=== PATIENT | male | born 1940 | race Caucasian/White ===

== ENCOUNTER 2017-02-22 17:35 | Observation (INO) | payer OTHER ==
[~2017-02-22] VITALS: Ht 185.4 cm; Wt 66.0 kg
[~2017-02-22 17:35] MED LIST: ASPI325T PO; ATOR10TA15 PO; CARD300C5 PO; INDA2.5T PO; LOSA100T PO; MULT-135 PO; PLAV75TA29 PO
[2017-02-22 17:38] VITALS: BP 171/76; PULSE 58; RESP 20; TEMP 97.8; O2SAT 92
--- NOTE | 2017-02-22 17:52 | PD ---
Physical Exam Date Seen by Provider: Feb 22, 2017 Time Seen by Provider: 17:47 Narrative Patient seen in Triage with 2 day Hx of Exertional Chest Pressure that goes away immediately with rest. Patient denies Fever, Chills, Cough, or Nausea. Patient has Hx of Stent placement in october. No Hx. MA or CHF. Chest pressure goes up Left Arm and across anterior chest. Patient states it resolves immediately with 10 seconds rest. EKG ordered. Vital Signs Stable. Patient awaiting Bed Placement. Data Data Last Documented VS Vital Signs Date Time Temp Pulse Resp B/P Pulse Ox O2 Delivery O2 Flow Rate FiO2 02/22/17 17:38 97.8 58 20 171/76 92 Room Air Orders Electrocardiogram (02/22/17 17:43) [place] Medical Record Reviewed: Yes Supervised Visit with YOSELIN: Yes Condition: Stable Shaq Henley Feb 22, 2017 17:52
[2017-02-22 20:06] VITALS: BP 192/86; PULSE 55; RESP 18; O2SAT 98
[2017-02-22] MEDS ORDERED: METO25TA3 PO (20:08)
[2017-02-22] MEDS ORDERED: DILT1TAB22 PO (20:19)
[2017-02-22] MEDS ORDERED: METH5TAB4 PO (20:19)
[2017-02-22 20:57] VITALS: O2SAT 98
[2017-02-22 20:58] VITALS: BP 163/74; PULSE 52; RESP 18; O2SAT 97
[2017-02-22] MEDS ORDERED: SODIUM CHLORIDE 0.9% FLUSH 10 ML FLUSH IVF PRN (21:00)
--- NOTE | 2017-02-22 21:00 | PD ---
HPI Chief Complaint: Chest Pain Time Seen by Provider: 20:35 Travel History International Travel<30 days: No Contact w/Intl Traveler<30days: No Traveled to known affect area: No History of Present Illness HPI 76-year-old male arrives to the ER with a story concerning for anginal equivalents. He notes that 4 months ago he underwent coronary catheterization with stent placement by Dr. Hamilton. At that time the patient was experiencing left shoulder/chest pain described as pressure-like with a severity of 7/10 felt mainly while mowing the lawn. Upon rest the chest pain resolved. Since the stent was placed the patient has been asymptomatic until one week prior. 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 He reports somewhat of a long walk for some of the buildings. During these exertional episodes the patient experiences a pain quality similar to that he had previous to stent placement 4 months prior though less severe, 2-3/ 10. He reported the story to Dr. Hamilton who advised him to come to the ER. He has no pain at the time of interview. PFSH Past Medical History Hx Anticoagulant Therapy: Yes Atrial Fibrillation: Yes Heart Rhythm Problems: Yes (A FIB) Cancer: Yes (SKIN) Cardiac Catheterization: Yes (STENT PLACED 10/2016) Cardiovascular Problems: Yes High Cholesterol: Yes Diminished Hearing: No Hypertension: Yes Respiratory: Yes Tetanus Vaccination: Unknown Influenza Vaccination: Yes ?: Not Social History Alcohol Use: Yes (socially ) Tobacco Use: No Substance Use: No Allergies-Medications (Allergen,Severity, Reaction): Coded Allergies: Lisinopril (Verified Allergy, Unknown, 02/22/17) Reported Meds & Prescriptions Reported Meds & Active Scripts Active Reported Methimazole 5 Mg Tab 5 Mg PO DAILY Cardizem LA (Diltiazem ER 24 HR) 300 Mg Radha 300 Mg PO DAILY Metoprolol Tartrate 25 Mg Tab 25 Mg PO BID Aspirin 325 Mg Tab 325 Mg PO DAILY Atorvastatin (Atorvastatin Calcium) 10 Mg Tab 10 Mg PO HS Plavix (Clopidogrel Bisulfate) 75 Mg Tab 75 Mg PO DAILY Multi Vitamin (Multiple Vitamin) 1 Tab Tab 1 Tab PO DAILY Losartan (Losartan Potassium) 100 Mg Tab 100 Mg PO DAILY Indapamide 2.5 Mg Tab 2.5 Mg PO DAILY Review of Systems Except as stated in HPI: all other systems reviewed are Neg General / Constitutional: No: Fever, Chills Cardiovascular: Positive: Chest Pain or Discomfort Physical Exam Narrative GENERAL: 76-year-old male pleasant no acute distress SKIN: Focused skin assessment warm/dry. HEAD: Atraumatic. Normocephalic. EYES: Pupils equal and round. No scleral icterus. No injection or drainage. ENT: No nasal bleeding or discharge. Mucous membranes pink and moist. NECK: Trachea midline. No JVD. CARDIOVASCULAR: Regular rate and rhythm. No murmur appreciated. RESPIRATORY: No accessory muscle use. Clear to auscultation. Breath sounds equal bilaterally. GASTROINTESTINAL: Abdomen soft, non-tender, nondistended. Hepatic and splenic margins not palpable. MUSCULOSKELETAL: No obvious deformities. No clubbing. No cyanosis. No edema. NEUROLOGICAL: Awake and alert. No obvious cranial nerve deficits. Motor grossly within normal limits. Normal speech. PSYCHIATRIC: Appropriate mood and affect; insight and judgment normal. Data Data Last Documented VS Vital Signs Date Time Temp Pulse Resp B/P Pulse Ox O2 Delivery O2 Flow Rate FiO2 02/22/17 20:58 52 18 163/74 97 Room Air 02/22/17 17:38 97.8 VS reviewed Orders Electrocardiogram (02/22/17 17:43) Basic Metabolic Panel (Bmp) (02/22/17 20:52) Ckmb (Isoenzyme) Profile (02/22/17 20:52) Complete Blood Count With Diff (02/22/17 20:52) Magnesium (Mg) (02/22/17 20:52) Prothrombin Time / Inr (Pt) (02/22/17 20:52) Act Partial Throm Time (Ptt) (02/22/17 20:52) Troponin I (02/22/17 20:52) Chest, Single Ap (02/22/17 20:52) Ecg Monitoring (02/22/17 20:52) Iv Access Insert/Monitor (02/22/17 20:52) Oximetry (02/22/17 20:52) Oxygen Administration (02/22/17 20:52) Sodium Chloride 0.9% Flush (Ns Flush) (02/22/17 21:00) CKMB (02/22/17 20:56) CKMB% (02/22/17 20:56) Diet Heart Healthy (02/22/17 Dinner) Activity Bed Rest With Brp (02/22/17 22:17) Vital Signs (Adult) Q4H (02/22/17 22:17) Cardiac Rhythm .As Directed (02/22/17:) ^ Notify Dr: Other .PRN (02/22/17:17) ^ Notify Dr. Parameters (02/22/17:17) Resp Oxygen Nasal Cannula (02/22/17 ) Diet Npo (02/23/17 Breakfast) Ckmb (Isoenzyme) Profile (02/22/17:) Ckmb (Isoenzyme) Profile (02/23/17 01:17) Troponin I (02/22/17:) Troponin I (02/23/17:17) Electrocardiogram (02/22/17:) Electrocardiogram (02/23/17:) ^ Obtain (02/22/17:) Acetamin-Hydrocod 325-7.5 Mg ([place] 7.5 (02/22/17 22:30) Morphine Inj (Morphine Inj) (02/22/17 22:30) Ondansetron Inj (Zofran Inj) (02/22/17 22:30) Nitroglycerin Sl (Nitrostat Sl) (02/22/17 22:30) Aspirin (Aspirin) (02/23/17 09:00) Temazepam (Restoril) (02/22/17 22:30) Alprazolam (Xanax) (02/22/17 22:30) Service Delivery Management Consultant / Telemetry [place].Q8H (02/22/17 22:17) Admit Order (Ed Use Only) (02/22/17 22:17) Labs Laboratory Tests Test 02/22/17 20:56 White Blood Count 8.1 TH/MM3 Red Blood Count 4.91 MIL/MM3 Hemoglobin 15.5 GM/DL Hematocrit 45.0 % Mean Corpuscular Volume 91.8 FL Mean Corpuscular Hemoglobin 31.5 PG Mean Corpuscular Hemoglobin 34.3 % Concent Red Cell Distribution Width 15.4 % Platelet Count 198 TH/MM3 Mean Platelet Volume 8.9 FL Neutrophils (%) (Auto) 67.2 % Lymphocytes (%) (Auto) 23.2 % Monocytes (%) (Auto) 7.7 % Eosinophils (%) (Auto) 1.3 % Basophils (%) (Auto) 0.6 % Neutrophils # (Auto) 5.5 TH/MM3 Lymphocytes # (Auto) 1.9 TH/MM3 Monocytes # (Auto) 0.6 TH/MM3 Eosinophils # (Auto) 0.1 TH/MM3 Basophils # (Auto) 0.0 TH/MM3 CBC Comment DIFF FINAL Differential Comment Prothrombin Time 11.2 SEC Prothromb Time International 1.0 RATIO Ratio Activated Partial 27.2 SEC Thromboplast Time Sodium Level 139 MEQ/L Potassium Level 3.7 MEQ/L Chloride Level 100 MEQ/L Carbon Dioxide Level 30.3 MEQ/L Anion Gap 9 MEQ/L Blood Urea Nitrogen 17 MG/DL Creatinine 1.04 MG/DL Estimat Glomerular Filtration 70 ML/MIN Rate Random Glucose 87 MG/DL Calcium Level 10.2 MG/DL Magnesium Level 2.1 MG/DL Total Creatine Kinase 102 U/L Creatine Kinase MB 1.1 NG/ML Troponin I LESS THAN 0.02 NG/ML MDM Medical Decision Making Medical Screen Exam Complete: Yes Emergency Medical Condition: Yes Medical Record Reviewed: Yes Differential Diagnosis NSTEMI, unstable angina, coronary vasospasm, PE, PTX, aortic dissection, pericarditis, myocarditis, endocarditis, PNA, esophageal disease, aneurysm, musculoskeletal etiologies, anxiety, cocaine/sympathomimetic abuse Narrative Course EKG: Sinus bradycardia, normal axis with normal intervals at a rate of 56 and no ischemic injury pattern CBC & BMP Diagram 02/22/17 20:56 Last 24 hours Impressions Chest X-Ray 02/22/172051 Signed Impressions: Service Date/Time: January 20:52 - CONCLUSION: No acute disease. Amos Merlos MD Workup in the ER is unremarkable. Prior cardiology notes reviewed including cath report. The patient has multiple risk factors for acute coronary syndrome. Chest pain center evaluation may be of benefit for this patient. Protocol orders placed. Pt agreeable with plan. Diagnosis Primary Impression: Sensation of chest pressure Admitting Information Admitting Physician Requests: Observation Condition: Stable Rohith Nation MD Feb 22, 2017 21:00
[2017-02-22 21:13] LABS: AUTOMATED NEUTROPHIL # 5.5 TH/MM3 (1.8-7.7); BASOPHIL % 0.6 % (0.0-2.0); EOSINOPHIL # 0.1 TH/MM3 (0-0.4); EOSINOPHIL % 1.3 % (0.0-4.0); HEMO FLAGS DIFF FINAL; LYMPH % 23.2 % (9.0-44.0); LYMPHOCYTE # 1.9 TH/MM3 (1.0-4.8); MEAN CELL VOLUME 91.8 FL (80.0-100.0); MEAN CORPUSCULAR HEMOGLOBIN 31.5 PG (27.0-34.0); MEAN CORPUSCULAR HGB CONC 34.3 % (32.0-36.0); MONO % 7.7 % (0.0-8.0); NEUT % 67.2 % (16.0-70.0); PLATELET COUNT 198 TH/MM3 (150-450); RED BLOOD COUNT 4.91 MIL/MM3 (4.50-5.90); RED CELL DISTRIBUTION WIDTH 15.4 % (11.6-17.2); WHITE BLOOD COUNT 8.1 TH/MM3 (4.0-11.0)
--- NOTE | 2017-02-22 21:13 | RADRPT ---
EXAM DATE/TIME: 02/22/2017 20:52 [facility] COMPARISON: CHEST SINGLE AP, October 29, 2016, 8:34. INDICATIONS : Chest pain MEDICAL HISTORY : A-fib SURGICAL HISTORY : Cardiac stent ENCOUNTER: Initial ACUITY: 1 day PAIN SCORE: 0/10 LOCATION: chest FINDINGS: A single view of the chest demonstrates the lungs to be symmetrically aerated without evidence of mas s, infiltrate or effusion. The cardiomediastinal contours are unremarkable. Osseous structures are intact. CONCLUSION: No acute disease. Amos Merlos MD on February 22, 2017 at 21:12 Board Certified Radiologist. This report was verified electronically.
[2017-02-22 21:39] LABS: ANION GAP 9 MEQ/L (5-15); BICARBONATE 30.3 MEQ/L (21.0-32.0); CHLORIDE 100 MEQ/L (98-107); CREATINE KINASE 102 U/L (39-308); GLOMERULAR FILTRATION RATE 70 ML/MIN (>89); MAGNESIUM 2.1 MG/DL (1.5-2.5); POTASSIUM 3.7 MEQ/L (3.5-5.1); SODIUM (NA) 139 MEQ/L (136-145)
[2017-02-22 21:43] LABS: BLOOD UREA NITROGEN 17 MG/DL (7-18)
[2017-02-22 21:56] LABS: CKMB 1.1 NG/ML (0.5-3.6)
[2017-02-22 22:16] LABS: APTT (PATIENT) 27.2 SEC (24.3-30.1); PROTHROMBIN TIME - PATIENT 11.2 SEC (9.8-11.6)
[2017-02-22] MEDS ORDERED: ACETAMINOPHEN/HYDROcodone 325 MG/7.5 MG TAB PO PRN (22:30)
[2017-02-22] MEDS ORDERED: NITROGLYCERIN 0.4 MG SL 25 TABS/BTL SL PRN (22:30)
[2017-02-22] MEDS ORDERED: TEMAZEPAM 15 MG CAP PO PRN (22:30)
[2017-02-22] MEDS ORDERED: ALPRAZolam 0.25 MG TAB PO PRN (22:30)
[2017-02-22] MEDS ORDERED: MORPHINE SULFATE 4 MG/ML INJ IV PRN (22:30)
[2017-02-22] MEDS ORDERED: ONDANSETRON HCL 4 MG/2 ML VIAL IV PRN (22:30)
[2017-02-22] MEDS ORDERED: ACETAMINOPHEN 325 MG TAB PO ONE (23:15)
[2017-02-22] MEDS ORDERED: ATORVASTATIN 10 MG TAB PO ONE (23:15)
[2017-02-23 03:42] LABS: CREATINE KINASE 76 U/L (39-308)
[2017-02-23 04:03] VITALS: BP 160/88; PULSE 51; RESP 18; TEMP 98.7; O2SAT 95
[2017-02-23 04:12] VITALS: PULSE 49
[2017-02-23 07:49] VITALS: BP 178/78; PULSE 54; RESP 18; TEMP 96.8; O2SAT 95
[2017-02-23] MEDS ORDERED: METHIMAZOLE 5 MG TAB PO SCH (09:00)
[2017-02-23] MEDS ORDERED: METOPROLOL TARTRATE 25 MG TAB PO SCH (09:00)
[2017-02-23] MEDS ORDERED: MULTIVITAMIN TAB PO SCH (09:00)
[2017-02-23] MEDS ORDERED: ASPIRIN 325 MG TAB PO SCH (09:00)
[2017-02-23] MEDS ORDERED: LOSARTAN 50 MG TAB PO SCH (09:00)
[2017-02-23] MEDS ORDERED: CLOPIDOGREL 75 MG TAB PO SCH (09:00)
[2017-02-23] MEDS ORDERED: DILTIAZEM-CD 300 MG CAP ER PO SCH (09:00)
[2017-02-23] MEDS ORDERED: INDAPAMIDE 2.5 MG TAB PO SCH (09:00)
--- NOTE | 2017-02-23 09:15 | HHI.HP ---
HPI Primary Care Physician Rajan Partida M.D. Chief Complaint Chest pressure History of Present Illness 76-year-old male with known coronary artery disease with stent placed to ostial RCA October 2016 presents to the emergency room with 4 episodes of exertional chest discomfort. 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 Characterized as a pressure. Location left shoulder with radiation to left anterior chest. Severity 3/10. Precipitating factors exertion, relieving factors rest. States chest pressure improved within 10 seconds of rest. No associated symptoms. Endorses sedentary lifestyle and does not exert himself except days working. Denies chest pressure any other days as he does not exert himself. Review of Systems General: No fatigue,weakness, fever, chills, recent illness, or change in appetite. Has been in his general state of health. HEENT: No ROJAS, no vision changes, no nasal congestion or drainage, no dysphasia CV: No current chest pain, otherwise as stated above. No palpitations or dizziness. RESP: No SOB, cough, wheeze, or recent URI GI: No nausea, vomiting, bowel changes, diarrhea, constipation, pain, distention , melena, blood in the stool. Intentional weight loss 25 pounds since November. : No dysuria, urgency, frequency, hematuria EXT: No lower leg edema, bilateral lower extremities neuropathy MS: No discomfort or change in ROM NEURO: No change in memory, dizziness, difficulty with balance, LOC, motor/ sensory deficits, history of shingles-shoulder intermittent chronic nerve pain center SKIN: No concerning lesions or rashes Past Family Social History Allergies: Coded Allergies: Lisinopril (Verified Allergy, Unknown, 02/22/17) Past Medical History A. fib, x1 cardiac stent (RCA), hyperlipidemia, hypertension, skin cancer, hyperthyroidism Reported Medications Reported Meds & Active Scripts Active Reported Methimazole 5 Mg Tab 5 Mg PO DAILY Cardizem LA (Diltiazem ER 24 HR) 300 Mg Radha 300 Mg PO DAILY Metoprolol Tartrate 25 Mg Tab 25 Mg PO BID Aspirin 325 Mg Tab 325 Mg PO DAILY Atorvastatin (Atorvastatin Calcium) 10 Mg Tab 10 Mg PO HS Plavix (Clopidogrel Bisulfate) 75 Mg Tab 75 Mg PO DAILY Multi Vitamin (Multiple Vitamin) 1 Tab Tab 1 Tab PO DAILY Losartan (Losartan Potassium) 100 Mg Tab 100 Mg PO DAILY Indapamide 2.5 Mg Tab 2.5 Mg PO DAILY Active Ordered Medications Current Medications Medications (Trade) Dose Ordered Sig/Raymond Route Start Time Stop Time Status Last Admin ([place] 7.5-325 Mg) 1 tab Q4H PRN PO 02/22/17 22:30 (Morphine Inj) 2 mg Q4H PRN IV 02/22/17 22:30 (Zofran Inj) 4 mg Q6H PRN IV 02/22/17 22:30 (Nitrostat Sl) 0.4 mg Q5M PRN SL 02/22/17 22:30 (Aspirin) 325 mg DAILY PO 02/23/17 09:00 02/23/17 09:01 (Restoril) 15 mg HS PRN PO 02/22/17 22:30 (Xanax) 0.25 mg Q8H PRN PO 02/22/17 22:30 (Lipitor) 10 mg HS PO 02/23/17 21:00 (Plavix) 75 mg DAILY PO 02/23/17 09:00 02/23/17 09:01 (Cardizem Cd) 300 mg DAILY PO 02/23/17 09:00 02/23/17 09:00 (Lozol) 2.5 mg DAILY PO 02/23/17 09:00 02/23/17 09:00 (Cozaar) 100 mg DAILY PO 02/23/17 09:00 02/23/17 09:01 (Tapazole) 5 mg DAILY PO 02/23/17 09:00 02/23/17 09:00 (Lopressor) 25 mg BID PO 02/23/17 09:00 02/23/17 09:04 (Theragran) 1 tab DAILY PO 02/23/17 09:00 02/23/17 09:04 Family History Noncontributory for early onset cardiovascular disease Social History , retired. No known diabetes. Known hyperlipidemia and hypertension Remote smoker quit 50 years ago. Occasional alcohol. Denies illegal drug use. Past cardiac testing 10/27/16-cardiac catheterization #1 stent to ostial RCA, #2 moderate disease LAD not significant by [facility] management, #3 normal LVH #4 severe disease RCA Follows with Dr. Natalie Hamilton. No recent stress testing since cardiac catheterization. Physical Exam Vital Signs Vital Signs Date Time Temp Pulse Resp B/P Pulse Ox O2 Delivery O2 Flow Rate FiO2 02/23/17 07:49 96.8 54 18 178/78 95 02/23/17 04:12 49 02/23/17 04:03 98.7 51 18 160/88 95 02/22/17 20:58 52 18 163/74 97 Room Air 02/22/17 20:57 98 Room Air 02/22/17 20:06 55 18 192/86 98 Room Air 02/22/17 20:03 56 17 97 Room Air 02/22/17 17:38 97.8 58 20 171/76 92 Room Air Physical Exam GENERAL: Alert WN, WD, NAD, pleasant, elderly male HEAD: NC, AT EYES: Sclera clear, conjunctiva without injection, pupils equal and round ENT: Mucous membranes pink and moist, no nasal discharge or bleeding NECK: Supple, no masses, trachea midline CV: RRR, without murmur, rub, gallop, no JVD, S1-S2 no S3-S4. No carotid bruits RESP: Clear lungs throughout bilateral, no crackles, wheeze, rhonchi, symmetrical chest rise, nonlabored, able to speak in full sentences ABD: Soft, NT, ND, no masses, positive bowel tones EXT: Pulses +24, no dependent edema MS: Normal tone 4 extremities, nontender, no obvious deformities, full range of motion NEURO: CN II through CN XII grossly intact, motor strength 5/5, gait WNL PSYCH: A+O 3, pleasant affect, appropriate speech, appropriate mood and affect , insight and judgment SKIN: Normal turgor, normal texture, no lesions, no rashes, brisk cap refill, even hair distribution Laboratory Laboratory Tests Test 02/22/17 02/23/17 02/23/17 20:56 00:05 02:55 White Blood Count 8.1 Red Blood Count 4.91 Hemoglobin 15.5 Hematocrit 45.0 Mean Corpuscular Volume 91.8 Mean Corpuscular Hemoglobin 31.5 Mean Corpuscular Hemoglobin 34.3 Concent Red Cell Distribution Width 15.4 Platelet Count 198 Mean Platelet Volume 8.9 Neutrophils (%) (Auto) 67.2 Lymphocytes (%) (Auto) 23.2 Monocytes (%) (Auto) 7.7 Eosinophils (%) (Auto) 1.3 Basophils (%) (Auto) 0.6 Neutrophils # (Auto) 5.5 Lymphocytes # (Auto) 1.9 Monocytes # (Auto) 0.6 Eosinophils # (Auto) 0.1 Basophils # (Auto) 0.0 CBC Comment DIFF FINAL Differential Comment Prothrombin Time 11.2 Prothromb Time International 1.0 Ratio Activated Partial 27.2 Thromboplast Time Sodium Level 139 Potassium Level 3.7 Chloride Level 100 Carbon Dioxide Level 30.3 Anion Gap 9 Blood Urea Nitrogen 17 Creatinine 1.04 Estimat Glomerular Filtration 70 Rate Random Glucose 87 Calcium Level 10.2 Magnesium Level 2.1 Total Creatine Kinase 102 76 76 Creatine Kinase MB 1.1 Troponin I LESS THAN 0.02 0.02 LESS THAN 0.02 Result Diagram: 02/22/17205502/22/172055 Imaging Last Impressions Myocardial Perfusion Scan Nuc Med 02/23/17 0000 Signed Impressions: Service Date/Time: Thursday, February 23, 2017 09:16 - CONCLUSION: Stress-induced redistribution consistent with ischemia. RISK CATEGORY: Low to intermediate. Ilia Robison MD FACR Chest X-Ray 02/22/172051 Signed Impressions: Service Date/Time: January 20:52 - CONCLUSION: No acute disease. Amos Merlos MD Course EKGs Normal sinus bradycardia with no ST or T-segment changes Assessment and Plan Assessment and Plan #1 Chest painadmitted to chest pain center. Ruled out with 3 sets of EKGs, cardiac enzymes, monitor overnight. Seen and evaluated by Dr. Melania Hamilton. Patient given option to optimize medications, complete a Johana scan, or have a cardiac catheterization today for further evaluation. Patient requesting chemical stress test at this time. Chemical stress test results indicate abnormal findings. Dr. Natalie Hamilton spoke in length with patient and at bedside regarding options abnormal. At this time, patient opts for medical management and follow with Dr. Hamilton in office next week. Imdur 30 mg daily. Continue metoprolol and atorvastatin. #2 Hypertension-continue losartan and indapamide #3 A. fibcontinue Cardizem #4 Hyperlipidemiacontinue atorvastatin Katherin Shukla Feb 23, 2017 09:15
[2017-02-23] MEDS ORDERED: REGADENOSON INJ 0.4 MG/5 ML SYR ONE (09:58)
[2017-02-23] MEDS ORDERED: AMINOPHYLLINE INJ 250 MG/10 ML VIAL ONE (10:33)
--- NOTE | 2017-02-23 11:28 | RADRPT ---
EXAM DATE/TIME: 02/23/2017 09:16 [facility] COMPARISON: No previous studies available for comparison. INDICATIONS : Substernal chest pain radiating to the left arm. Angina. Atrial fibrillation. DOSE: 27.1 mCi Tc99m Myoview at stress. 8.8 mCi Tc99m Myoview at rest. 0.4 mg Lexiscan STRESS SYMPTOMS: Dyspnea and chest pain. EJECTION FRACTION: 59% MEDICAL HISTORY : Hypercholesterolemia. Hypertension. SURGICAL HISTORY : Coronary artery stent. ENCOUNTER: Initial ACUITY: 2 days PAIN SCALE: 7/10 LOCATION: Substernal chest TECHNIQUE: The patient underwent pharmacologic stress with infusion of prescribed dose. Continuous ECG tracing was monitored during stress. Gated SPECT imaging was performed after stress and conventional SPECT i maging was performed at rest. The examination was performed on a SPECT/CT scanner, both attenuation and non-corrected datasets were reviewed. FINDINGS: There is redistribution in the anterior septal region involving long segment of myocardium. There is minimal hypokinesis evident the septum as well. CONCLUSION: Stress-induced redistribution consistent with ischemia. RISK CATEGORY: Low to intermediate. Ilia Robison MD FACR on February 23, 2017 at 11:25 Board Certified Radiologist. This report was verified electronically.
[2017-02-23 11:50] VITALS: BP 155/70; PULSE 52; RESP 18; TEMP 98; O2SAT 95
--- NOTE | 2017-02-23 14:24 | HHI.DS ---
Discharge Summary Report Discharge Summary Pt was not consistently taking his metoprolol prior to admission. ECG and enzymes were unremarkable. Pt had nuclear stress that did show some anterior ischemia. Dr Hamilton reviewed cath and nuc images, then had an extensive discussion with the patient. He elected to try and intensify his meds and will follow up in the office. Imdur 30mg a day added. Katherin Shukla Feb 23, 2017 14:24
[2017-02-23] MEDS ORDERED: ISOS30TA3 PO (14:26)
--- NOTE | 2017-02-23 14:29 | EKG ---
Date Performed: 02/23/2017 Time Performed: 03:56:16 PTAGE: 76 years EKG: SINUS BRADYCARDIA BORDERLINE ECG PREVIOUS TRACING : 02/22/2017 22.30 Since previous tracing, no significant change noted DOCTOR: Natalie Hamilton Interpretating Date/Time 02/23/2017 14:27:32
--- NOTE | 2017-02-23 14:29 | HHI.DCPOC ---
Discharge Care Plan Diagnosis: (1) Anginal equivalent (2) Hx of coronary artery disease Goals to Promote Your Health * To prevent worsening of your condition and complications * To maintain your health at the optimal level Directions to Meet Your Goals Take your medications as prescribed Follow your dietary instruction Follow activity as directed Keep your appointments as scheduled Take your immunizations and boosters as scheduled If your symptoms worsen call your PCP, if no PCP go to Urgent Care Center or Emergency Room Smoking is Dangerous to Your Health. Avoid second hand smoke Call the 24-hour hour crisis hotline for domestic abuse at Katherin Shukla Feb 23, 2017 14:29
--- NOTE | 2017-02-23 14:30 | EKG ---
Date Performed: 02/22/2017 Time Performed: 22:30:08 PTAGE: 76 years EKG: SINUS BRADYCARDIA MODERATE VOLTAGE CRITERIA FOR LVH, CONSIDER NORMAL VARIANT BORDERLINE ECG Since PREVIOUS TRACING , no significant change noted PREVIOUS TRACIN02/22/2017 17.52 DOCTOR: Natalie Hamilton Interpretating Date/Time 02/23/2017 14:28:27
--- NOTE | 2017-02-23 14:31 | EKG ---
Date Performed: 02/22/2017 Time Performed: 17:52:24 PTAGE: 76 years EKG: SINUS BRADYCARDIA MINIMAL VOLTAGE CRITERIA FOR LVH, CONSIDER NORMAL VARIANT BORDERLINE ECG Since PREVIOUS TRACING , no significant change noted PREVIOUS TRACIN10/29/2016 18.21 DOCTOR: Natalie Hamilton Interpretating Date/Time 02/23/2017 14:29:29
[2017-02-23] MEDS ORDERED: ATORVASTATIN 10 MG TAB PO SCH (21:00)
--- NOTE | 2017-02-24 15:21 | TR ---
Date Performed: 02/23/2017 Time Performed: 10:13:10 DOCTOR: Cholo Melgar DRUG LIST: CLINICAL HISTORY: REASON FOR TEST: REASON FOR ENDING: OBSERVATION: CONCLUSION: Lexiscan stress test was performed under standard four minute protocol. Radionuclide was injected one minute prior to ending the test. Developed dyspnea and chest pressure, systolic blo od pressure was slightly elevated. No electrocardiographic abnormalities were present to suggest isch emia. Recovery was quick and uneventful with resolution of symptoms, systolic blood pressure returned to normal. Nuclear imaging and interpretation are pending. COMMENTS:
== END 2017-02-23 16:20 | disposition home or self-care (01) ==
LOC: NEPE 17:35 → NEDA 22:19 → NEPGCP 02-23 01:52
PROVIDERS: ADMIT Internal Medicine Interventional Cardiology; ATTEND Internal Medicine Interventional Cardiology
DX: R07.9 Chest pain, unspecified (principal); I10 Essential (primary) hypertension; I48.91 Unspecified atrial fibrillation; E78.5 Hyperlipidemia, unspecified; I25.10 Atherosclerotic heart disease of native coronary artery without angina pectoris; E78.00 Pure hypercholesterolemia, unspecified; E05.90 Thyrotoxicosis, unspecified without thyrotoxic crisis or storm; Z87.891 Personal history of nicotine dependence; Z95.5 Presence of coronary angioplasty implant and graft; Z85.828 Personal history of other malignant neoplasm of skin; Z88.8 Allergy status to other drugs, medicaments and biological substances; Z79.82 Long term (current) use of aspirin; Z79.02 Long term (current) use of antithrombotics/antiplatelets
CPT/HCPCS: 71010; 78452; 80048; 82550; 82552; 83735; 84484; 85025; 85610; 85730; 93005; 93017; 99285; A9502; G0378; J0280; J2785

== ENCOUNTER 2017-03-05 04:26 | Inpatient (IN) | payer OTHER, MEDICARE ==
[~2017-03-05] VITALS: Ht 185.4 cm; Wt 115.1 kg
[2017-03-05] VITALS (22 sets, daily range): BP systolic 135–194; BP diastolic 55–80; PULSE 45–92; RESP 14–20; TEMP 97.9–98.9; O2SAT 93–100
[~2017-03-05 04:26] MED LIST changes: -CARD300C5 PO; +DILT1TAB22 PO; +ISOS30TA3 PO; +METH5TAB4 PO; +METO25TA3 PO
[2017-03-05] MEDS ORDERED: METO25TA3 PO (04:42)
[2017-03-05] MEDS ORDERED: SODIUM CHLORIDE 0.9% FLUSH 10 ML FLUSH IVF PRN (05:00)
--- NOTE | 2017-03-05 05:06 | PD ---
HPI Chief Complaint: Chest Pain Time Seen by Provider: 04:37 Travel History International Travel<30 days: No Contact w/Intl Traveler<30days: No Traveled to known affect area: No History of Present Illness HPI Is a 76 old male with a known history of CAD presents to the emergency department complaining of chest pain. Patient has known CAD with previous stent to his RCA. He was seen in the emergency department admitted to the hospital with chest pains February 22. He had a stress test that was abnormal suggestive of ischemia. He sees Dr. Hamilton. They had a discussion decided to pursue medical management. He is placed on long-acting nitrates. States he still has the same intermittent exertional chest pressure that he had then. This is been improved some with the long-acting nitrates. States she was doing well until yesterday afternoon he started to develop intermittent pinching left-sided chest pain. States his pain is different in character and quality than the pressure-like chest pain that brought him previously. States his last for just seconds at a time, doesn't seem to be related to exertion. He 's not sure he's ever had this pain before. He still has some shortness of breath at times. He's also had intermittent gas pain and indigestion and bloating is been ongoing for a while. No leg swelling. No other complaints. History Past Medical History Narrative Medical CAD, stent in the RCA A. fib Hyperlipidemia Hypertension Hyperthyroidism, on metronidazole Social History Alcohol Use: Yes (socially ) Tobacco Use: No (QUIT 47 YRS AGO) Allergies-Medications (Allergen,Severity, Reaction): Coded Allergies: Lisinopril (Verified Allergy, Unknown, 03/05/17) Reported Meds & Prescriptions Reported Meds & Active Scripts Active Reported Metoprolol Tartrate 25 Mg Tab 12.5 Mg PO BID Methimazole 5 Mg Tab 5 Mg PO DAILY Cardizem LA (Diltiazem ER 24 HR) 300 Mg Radha 300 Mg PO DAILY Aspirin 325 Mg Tab 325 Mg PO DAILY Atorvastatin (Atorvastatin Calcium) 10 Mg Tab 10 Mg PO HS Plavix (Clopidogrel Bisulfate) 75 Mg Tab 75 Mg PO DAILY Multi Vitamin (Multiple Vitamin) 1 Tab Tab 1 Tab PO DAILY Losartan (Losartan Potassium) 100 Mg Tab 100 Mg PO DAILY Indapamide 2.5 Mg Tab 2.5 Mg PO DAILY Review of Systems Except as stated in HPI: all other systems reviewed are Neg Physical Exam Narrative GENERAL: Well-appearing 76-year-old man, no acute distress. SKIN: Focused skin assessment warm/dry. HEAD: Atraumatic. Normocephalic. EYES: Pupils equal and round. No scleral icterus. No injection or drainage. ENT: No nasal bleeding or discharge. Mucous membranes pink and moist. NECK: Trachea midline. No JVD. CARDIOVASCULAR: Regular rate and rhythm. No murmur appreciated. RESPIRATORY: No accessory muscle use. Clear to auscultation. Breath sounds equal bilaterally. GASTROINTESTINAL: Abdomen soft, non-tender, nondistended. Hepatic and splenic margins not palpable. MUSCULOSKELETAL: No obvious deformities. No clubbing. No cyanosis. No edema. NEUROLOGICAL: Awake and alert. No obvious cranial nerve deficits. Motor grossly within normal limits. Normal speech. PSYCHIATRIC: Appropriate mood and affect; insight and judgment normal. Data Data Last Documented VS Vital Signs Date Time Temp Pulse Resp B/P Pulse Ox O2 Delivery O2 Flow Rate FiO2 03/05/17 04:55 99 Room Air 03/05/17 04:44 48 18 179/77 03/05/17 04:28 98.6 Orders Electrocardiogram (03/05/17 04:53) Complete Blood Count With Diff (03/05/17 04:53) Comprehensive Metabolic Panel (03/05/17 04:53) Magnesium (Mg) (03/05/17 04:53) Prothrombin Time / Inr (Pt) (03/05/17 04:53) Act Partial Throm Time (Ptt) (03/05/17 04:53) Troponin I (03/05/17 04:53) Chest, Single Ap (03/05/17 04:53) Ecg Monitoring (03/05/17 04:53) Iv Access Insert/Monitor (03/05/17 04:53) Oximetry (03/05/17 04:53) Oxygen Administration (03/05/17 04:53) Sodium Chloride 0.9% Flush (Ns Flush) (03/05/17 05:00) Admit Order (Ed Use Only) (03/05/17 ) Consult Cardiology (03/05/17 ) Labs Laboratory Tests Test 03/05/17 04:55 White Blood Count 6.6 TH/MM3 Red Blood Count 4.51 MIL/MM3 Hemoglobin 14.3 GM/DL Hematocrit 41.4 % Mean Corpuscular Volume 91.8 FL Mean Corpuscular Hemoglobin 31.6 PG Mean Corpuscular Hemoglobin 34.4 % Concent Red Cell Distribution Width 15.0 % Platelet Count 164 TH/MM3 Mean Platelet Volume 8.7 FL Neutrophils (%) (Auto) 67.7 % Lymphocytes (%) (Auto) 21.6 % Monocytes (%) (Auto) 8.3 % Eosinophils (%) (Auto) 1.7 % Basophils (%) (Auto) 0.7 % Neutrophils # (Auto) 4.4 TH/MM3 Lymphocytes # (Auto) 1.4 TH/MM3 Monocytes # (Auto) 0.5 TH/MM3 Eosinophils # (Auto) 0.1 TH/MM3 Basophils # (Auto) 0.0 TH/MM3 CBC Comment DIFF FINAL Differential Comment Prothrombin Time 11.5 SEC Prothromb Time International 1.0 RATIO Ratio Activated Partial 26.5 SEC Thromboplast Time Sodium Level 140 MEQ/L Potassium Level 3.8 MEQ/L Chloride Level 101 MEQ/L Carbon Dioxide Level 32.0 MEQ/L Anion Gap 7 MEQ/L Blood Urea Nitrogen 15 MG/DL Creatinine 1.06 MG/DL Estimat Glomerular Filtration 68 ML/MIN Rate Random Glucose 100 MG/DL Calcium Level 9.6 MG/DL Magnesium Level 1.7 MG/DL Total Bilirubin 0.6 MG/DL Aspartate Amino Transf 23 U/L (AST/SGOT) Alanine Aminotransferase 19 U/L (ALT/SGPT) Alkaline Phosphatase 69 U/L Troponin I LESS THAN 0.02 NG/ML Total Protein 7.7 GM/DL Albumin 3.4 GM/DL [facility] Medical Decision Making Medical Screen Exam Complete: Yes Emergency Medical Condition: Yes Interpretation(s) My review of EKG: Sinus bradycardia rate of 46, normal axis, normal pulse, no acute ischemia. Differential Diagnosis ACS, noncardiac chest pain, PE, dissection, other Narrative Course Medical decision making INITIAL: This a 76-year-old man who presents to the emergency department complaining of left-sided intermittent chest pains. This is in the setting of an abnormal stress test with some exertional chest pressure is been ongoing for the past couple weeks. He looks well. His new chest pain lasting seconds at a time seems unlikely be cardiac in nature but is concerning in the light of his history and recent findings. We'll check labs, x-ray, EKG, reassess. FINAL: Initial studies are unremarkable. I spoke with Dr. Grayson, sanitation engineer for Dr. Hamilton. He agrees with admission for observation, while Dr. Hamilton constipation today to discuss that they should proceed with a heart catheterization or not. I spoke with Dr. peralta we will admit the patient. Diagnosis Primary Impression: Chest pain Nader Ahmadi MD Mar 05, 2017 05:06
[2017-03-05 05:08] LABS: AUTOMATED NEUTROPHIL # 4.4 TH/MM3 (1.8-7.7); BASOPHIL % 0.7 % (0.0-2.0); EOSINOPHIL # 0.1 TH/MM3 (0-0.4); EOSINOPHIL % 1.7 % (0.0-4.0); HEMATOCRIT 41.4 % (39.0-51.0); HEMO FLAGS DIFF FINAL; LYMPH % 21.6 % (9.0-44.0); LYMPHOCYTE # 1.4 TH/MM3 (1.0-4.8); MEAN CELL VOLUME 91.8 FL (80.0-100.0); MEAN CORPUSCULAR HEMOGLOBIN 31.6 PG (27.0-34.0); MEAN CORPUSCULAR HGB CONC 34.4 % (32.0-36.0); MONO % 8.3 % (0.0-8.0); NEUT % 67.7 % (16.0-70.0); PLATELET COUNT 164 TH/MM3 (150-450); RED BLOOD COUNT 4.51 MIL/MM3 (4.50-5.90); WHITE BLOOD COUNT 6.6 TH/MM3 (4.0-11.0)
[2017-03-05 05:15] LABS: APTT (PATIENT) 26.5 SEC (24.3-30.1); PROTHROMBIN TIME - PATIENT 11.5 SEC (9.8-11.6)
--- NOTE | 2017-03-05 05:42 | RADRPT ---
EXAM DATE/TIME: 03/05/2017 04:59 [place] COMPARISON: CHEST SINGLE AP, February 22, 2017, 20:52. INDICATIONS : Chest pain. MEDICAL HISTORY : Hypertension. A-fib. SURGICAL HISTORY : Coronary artery stent. ENCOUNTER: Initial ACUITY: 1 day PAIN SCORE: 1/10 LOCATION: chest midline and into back. FINDINGS: A single view of the chest demonstrates the lungs to be symmetrically aerated without evidence of mas s, infiltrate or effusion. The cardiomediastinal contours are unremarkable. Osseous structures are intact. CONCLUSION: No acute disease. Bentley Mendez MD on March 05, 2017 at 5:40 Board Certified Radiologist. This report was verified electronically.
[2017-03-05 05:44] LABS: ALKALINE PHOSPHATASE 69 U/L (45-117); ALT (GPT) 19 U/L (12-78); ANION GAP 7 MEQ/L (5-15); AST (GOT) 23 U/L (15-37); CHLORIDE 101 MEQ/L (98-107); GLOMERULAR FILTRATION RATE 68 ML/MIN (>89); MAGNESIUM 1.7 MG/DL (1.5-2.5); SODIUM (NA) 140 MEQ/L (136-145); TOTAL BILIRUBIN ADULT 0.6 MG/DL (0.2-1.0)
[2017-03-05 05:45] LABS: BLOOD UREA NITROGEN 15 MG/DL (7-18); POTASSIUM 3.8 MEQ/L (3.5-5.1)
[2017-03-05] MEDS ORDERED: SODIUM CHLORIDE 0.9% FLUSH 10 ML FLUSH IV FLUSH PRN ×3 (06:15→13:45)
[2017-03-05] MEDS ORDERED: MORPHINE SULFATE 4 MG/ML INJ IV PRN (06:15)
[2017-03-05] MEDS ORDERED: NITROGLYCERIN 2% OINT 1 GM PACKET TOPICAL PRN (06:15)
[2017-03-05] MEDS ORDERED: BISACODYL 10 MG SUPP RECTAL PRN (06:15)
[2017-03-05] MEDS ORDERED: ACETAMINOPHEN/HYDROcodone 325 MG/5 MG TAB PO PRN (06:15)
[2017-03-05] MEDS ORDERED: PILL SPLITTER OTHER PRN (06:45)
[2017-03-05 07:46] LABS: FREE T3 2.43 PG/ML (2.18-3.98); FREE T4 0.94 NG/DL (0.76-1.46)
--- NOTE | 2017-03-05 08:33 | MB ---
cc: MARY HAMILTON MD DATE OF CONSULTATION: 03/05/2017 REASON FOR CONSULTATION Chest pain. HISTORY OF PRESENT ILLNESS Mr. Melchor is a 76-year-old man who underwent stenting of his ostial RCA in October of 2016 with a 3.5 x 12-mm SARAH that was postdilated to 4.0. He did have residual disease of the LAD with an eccentric mid 50% stenosis just prior to the takeoff of the diagonal. The patient has had intermittent difficulties since that time and on 02/23 underwent nuclear stress testing that showed anteroseptal ischemia. My review of the images at that time felt that there was potentially inferior ischemia. In any case the patient and I both agreed to continue optimizing his medical management and added isosorbide. The patient reports that he has had better exercise capacity on the isosorbide, however, it made him feel "like a zombie". He subsequently stopped the isosorbide this weekend. Last night the patient reports he had several episodes in the middle of the night of discomfort in the left chest that is different from his prior pain. It lasted about 1-2 seconds. There did not appear to be any precipitating or relieving factors. He is currently pain free. ALLERGIES LISINOPRIL. PAST MEDICAL HISTORY Past medical history significant for: 1. Hypertension. 2. Hyperlipidemia. 3. CAD as above. 4. Atrial fibrillation. 5. Skin cancer. 6. Hyperthyroidism. MEDICATIONS Outpatient medications include: 1. Metoprolol 12.5 mg b.i.d. 2. Cardizem 300 mg a day. 3. Aspirin 325 mg a day. 4. Atorvastatin 10 mg q.h.s. 5. Plavix 75 mg a day. 6. Losartan 100 mg a day. 7. Indapamide 2.5 mg a day. 8. Methimazole 5 mg a day. REVIEW OF SYSTEMS Except as mentioned in the HPI, all 12 systems are negative. FAMILY HISTORY Noncontributory. SOCIAL HISTORY The patient is . PHYSICAL EXAMINATION VITAL SIGNS: 45, 14, 175/73. GENERAL: He is an obese man who is in no apparent distress. NECK: His neck is free from JVD. LUNGS: The lungs are bilaterally clear to auscultation. CARDIOVASCULAR: He has a normal S1 and S2. ABDOMEN: The abdomen was soft. EXTREMITIES: Free from edema. LABORATORY DATA Lab values significant for a creatinine of 1.06 and troponin of less than 0.02. EKG Shows normal sinus rhythm. IMPRESSION Atypical chest pain - the patient has a new and different chest pain that actually precipitated his visit today. It is not clear if this is related to his cardiac chest pain or not. Angina - the patient does also have angina that is different from above. He has been on Diltiazem and metoprolol with more recently adding the Imdur which he was not able to tolerate. This did improve his symptoms marginally but he was still fairly limited even on optimal medical therapy. In any case he is not able to tolerate the isosorbide. We again discussed cath/PCI versus trying alternate vasodilators such as Ranexa. The patient requested that we go ahead and proceed with intervention. We did discuss the risks and benefits as well as the alternatives. He is willing to proceed despite a several percent risk for , PR, CVA and other. I have spoke with my interventional colleague Dr. Nation who is willing to take him to the lab today. We will arrange for this later in the day. Atrial fibrillation - the patient is currently in normal sinus rhythm. He has a relatively low CHADS vasc score and thus has been managed with aspirin and Plavix alone while on Plavix after his stent. Hypertension - I am going to give him his a.m. medications. Hyperlipidemia - I will check fasting lipids in light of his pending intervention. Mary Hamilton M.D. NITA/TLL /7:44 AM /8:13 AM
[2017-03-05] MEDS ORDERED: ASPIRIN 325 MG TAB PO SCH (09:00)
[2017-03-05] MEDS: LOSARTAN 50 MG TAB PO SCH (09:00)
[2017-03-05] MEDS ORDERED: CLOPIDOGREL 75 MG TAB PO SCH (09:00)
[2017-03-05] MEDS: MULTIVITAMIN TAB PO SCH (09:00)
[2017-03-05] MEDS: METOPROLOL TARTRATE 25 MG TAB PO SCH ×2 (09:00→21:00)
[2017-03-05] MEDS: METHIMAZOLE 5 MG TAB PO SCH (09:00)
[2017-03-05] MEDS ORDERED: SODIUM CHLORIDE 0.9% FLUSH 10 ML FLUSH IV FLUSH SCH ×2 (09:00→21:00)
[2017-03-05] MEDS: INDAPAMIDE 2.5 MG TAB PO SCH (09:00)
[2017-03-05] MEDS: DILTIAZEM-CD 300 MG CAP ER PO SCH (09:00)
[2017-03-05] MEDS ORDERED: IOHEXOL 350 MG/ML 100 ML BTL (for Cath Lab) OTHER ONE (09:36)
[2017-03-05] MEDS ORDERED: HEPARIN-NS/PF INJ 500 ML ONE (09:47)
[2017-03-05] MEDS ORDERED: MIDAZOLAM HCL 2 MG/2 ML VIAL ONE (09:47)
[2017-03-05] MEDS ORDERED: VERAPAMIL HCL 5 MG/2 ML VIAL ONE (09:48)
[2017-03-05] MEDS ORDERED: HEPARIN SODIUM - IV 10,000 UNITS/10 ML VIAL ONE (09:48)
[2017-03-05] MEDS ORDERED: MISC INFORMATION XX ONE (11:15)
--- NOTE | 2017-03-05 13:07 | MA ---
cc: LUIS SOTO DO DATE OF PROCEDURE March 05, 2017 PROCEDURE Left heart catheterization, coronary angiogram. SEDATION Moderate sedation, 30 minutes. PREPROCEDURE DIAGNOSIS Angina. Failed antianginal medications. POSTPROCEDURE DIAGNOSIS Multivessel coronary artery disease. MEDICATIONS 1. Versed 0.5 mg. 2. Fentanyl 25 mcg. 3. Verapamil 2.5 mg. 4. Nitro 200 mcg. 5. Heparin 4400 units. CONTRAST USED 65cc. FLUOROSCOPY 8.2 minutes. ESTIMATED BLOOD LOSS 10 cc. PROCEDURAL SUMMARY Amos Melchor is a pleasant 76-year-old male who presented to [facility] Emergency Room with chest pain. He previously underwent pharmacologic nuclear stress testing which was read as anterior ischemia but reviewing it there appears to be inferior ischemia. Because of his chest pain, he was attempted on medical management but is unable to take the Imdur. Because of this I was asked for consideration of repeat catheterization and possible intervention. The risks, benefits and alternatives were explained to Mr. Melchor and he consented as such. He was brought to lab and prepped in the usual sterile fashion. The right radial artery was accessed using a modified Seldinger technique and placement of a 5/6-Icelandic Slender Sheath. This was easily aspirated and flushed. A JR-4 was then advanced to the right brachial cephalic artery. At this point I was unable to advance with a J-wire and this was then exchanged for an angled Glidewire. A JR-4 was then advanced to the ascending aortic root and used for nonselective angiography of the right coronary artery as I was unable to engage it. The JR-4 was then advanced into the left ventricle for a left ventricular pressure measurement. This was pulled back across the aortic valve which did not show a significant gradient of aortic stenosis. JR-4 was then exchanged for a JL-3.5 which was used for selective angiography of the left coronary system. The JL-3.5 was then removed over a J-wire. A TR band was placed over the radial arteriotomy site for hemostasis. The patient left the computer lab para professional cardiovascularly stable. FINDINGS Left main - 20% diffuse. It trifurcates into an LAD, ramus and left circumflex. LAD - Proximal 10-20%. Mid-LAD has a 95% lesion right at the takeoff of the first diagonal. Distally it has good runoff and is an excellent target. Diagonal has a 70% lesion in the ostium. Ramus - Somewhat of a small vessel and appears to have a 60-70% lesion in the ostium. Left circumflex - Ostial 40% with 30% diffuse in the proximal portion. It gives off two large obtuse marginals with no significant disease. Right coronary artery - Ostial 95% lesion with previous stent placed which shows in-stent restenosis and no significant disease distally. Left ventricular end-diastolic pressure was 20. IMPRESSIONS 1. Multivessel coronary artery disease with significant stenosis of the ostial RCA, LAD/diagonal bifurcation. 2. Chest pain, failing outpatient antianginal medications. 3. Recent drug-eluting stent placed in the ostium of the RCA with restenosis. RECOMMENDATIONS 1. Mr. Melchor appears to have multivessel coronary artery disease and the recommendation would be for CT Surgery evaluation. 2. I reviewed the films with Dr. Chua and plan would be for bypass of the RCA, LAD and diagonal with a consideration of the ramus. 3. We will obtain a 2-D echo to look at his overall left ventricular function, cardiac structure and possible valvopathies. 4. In anticipation of CT surgery, we will stop his Plavix. My concern is that he recently had a stent placed within the past 3 months and so he will be placed on a heparin drip 1 hour after the TR band is removed. 5. Further recommendations will be made based on the patient's hospital course. Thank you for allowing me to see Amos Melchor. If there are any questions, please do not hesitate to call. Luis Soto DO VGP/SSB /12:21 PM /12:55 PM TREVON
[2017-03-05] MEDS ORDERED: ceFAZolin 2 GM PREMIX 50 ML IV SCH (13:45)
[2017-03-05] MEDS ORDERED: CHLORHEXIDINE GLUCONATE 4% SOLN 120 ML BTL TOPICAL SCH (13:45)
[2017-03-05] MEDS ORDERED: INSULIN REGULAR (IV INFUSION) 100 UNITS in SODIUM CHLORIDE 0.9% INJ 100 ML IV SCH (13:45)
[2017-03-05] MEDS ORDERED: CEFAZOLIN INJ 500 MG in SODIUM CHLORIDE 0.9% IRR BTL 500 ML IRRIGATION SCH (13:45)
[2017-03-05] MEDS ORDERED: METOPROLOL TARTRATE 25 MG TAB PO SCH (13:45)
[2017-03-05] MEDS ORDERED: PAPAVERINE INJ 60 MG, NITROGLYCERIN INJ 100 MCG, DILTIAZEM INJ 100 MG in SODIUM CHLORID... IRRIGATION SCH (13:45)
--- NOTE | 2017-03-05 14:03 | EKG ---
Date Performed: 03/05/2017 Time Performed: 04:42:35 PTAGE: 76 years EKG: SINUS BRADYCARDIA Since previous tracing, no significant change noted BORDERLINE ECG PREVIOUS TRACING : 02/23/17 03.56.16 DOCTOR: Liliya Townsend Interpretating Date/Time 03/05/2017 14:03:06
--- NOTE | 2017-03-05 15:05 | HHI.HP ---
[facility] Service [place] [facility] Primary Care Physician Rajan Partida M.D. Admission Diagnosis chest pain Diagnoses: Chief Complaint: Intermittent exertional chest pain Travel History International Travel<30 Days: No Contact w/Intl Traveler <30 Da: No Traveled to Known Affected Are: No History of Present Illness Mr. Melchor is a 76-year-old male with a past medical history of hypertension, hyperlipidemia, atrial fibrillation, CAD with ostial RCA stenting on Plavix and aspirin, diverticulitis, skin cancer and hyperthyroidism. Patient presented to the ED with intermittent chest pain occurring with exertion for the past two and a half weeks, no associated symptoms of nausea, vomiting, or diaphoresis. He states that the pain would occur in the right anterior chest during activity , occurring only several seconds and is relieved with rest. Denies any need or use of nitrates. Patient did present in October with similar complaints of chest pain and underwent stenting of his ostial RCA. He does state that the chest pain had resolved for several months up until a couple weeks ago when he presented for similar symptoms and underwent a nuclear stress test. At that time , stress test was positive with anterior ischemia. Dr. Hamilton and patient decided to optimize medical management at that time and was started on Isosorbide. Denies any associated fever, chills, nausea or vomiting. At this time, patient is s/p cardiac catheterization today showing multivessel coronary artery disease with significant stenosis of the ostial RCA, LAD diagonal bifurcation. CT surgery consultation ordered. Pain is relatively controlled. No new complaints. Review of Systems Cardiovascular: COMPLAINS OF: Chest pain, Dyspnea on Exertion Except as stated in HPI: all other systems reviewed are Neg Past Family Social History Past Medical History CAD with ostial RCA stent placement Hypertension Hyperlipidemia Atrial fibrillation Hyperthyroidism Diverticulitis Past Surgical History Tonsillectomy Skin cancer removals Reported Medications Reported Meds & Active Scripts Active Reported Metoprolol Tartrate 25 Mg Tab 12.5 Mg PO BID Methimazole 5 Mg Tab 5 Mg PO DAILY Cardizem LA (Diltiazem ER 24 HR) 300 Mg Radha 300 Mg PO DAILY Aspirin 325 Mg Tab 325 Mg PO DAILY Atorvastatin (Atorvastatin Calcium) 10 Mg Tab 10 Mg PO HS Plavix (Clopidogrel Bisulfate) 75 Mg Tab 75 Mg PO DAILY Multi Vitamin (Multiple Vitamin) 1 Tab Tab 1 Tab PO DAILY Losartan (Losartan Potassium) 100 Mg Tab 100 Mg PO DAILY Indapamide 2.5 Mg Tab 2.5 Mg PO DAILY Allergies: Coded Allergies: Lisinopril (Verified Allergy, Unknown, 03/05/17) Family History Maternal medical history significant for Alzheimer disease, denies any diabetes or cardiovascular disease. Paternal medical history significant for OR. Social History Patient admits to tobacco cessation for over 47 years now. Does admit to smoking for 12 years prior. Does admit to occasional social alcohol use. Denies any illicit drug use. Physical Exam Vital Signs Vital Signs Date Time Temp Pulse Resp B/P Pulse Ox O2 Delivery O2 Flow Rate FiO2 03/05/17 13:33 54 03/05/17 12:42 97.9 51 20 142/57 96 03/05/17 12:00 51 03/05/17 10:58 96 Room Air 03/05/17 08:56 98.0 50 20 154/66 93 03/05/17 08:19 57 14 152/80 100 03/05/17 08:16 57 14 152/80 100 Room Air 03/05/17 07:07 45 14 175/73 99 Room Air 03/05/17 06:18 98.2 92 18 159/67 100 Room Air 03/05/17 04:55 99 Room Air 03/05/17 04:55 99 Room Air 03/05/17 04:44 48 18 179/77 99 Room Air 03/05/17 04:28 98.6 50 16 194/77 98 Room Air Physical Exam GENERAL: This is a well-nourished, obese patient, in no apparent distress. SKIN: No rashes, ecchymoses or lesions. Cool and dry. HEAD: Atraumatic. Normocephalic. No temporal or scalp tenderness. EYES: Pupils equal round and reactive. Extraocular motions intact. No scleral icterus. No injection or drainage. ENT: Nose without bleeding, purulent drainage or septal hematoma. Throat without erythema, tonsillar hypertrophy or exudate. Uvula midline. Airway patent. NECK: Trachea midline. No JVD or lymphadenopathy. Supple, nontender, no meningeal signs. CARDIOVASCULAR: Atrial fibrillation without murmurs, gallops, or rubs. RESPIRATORY: Clear to auscultation. Breath sounds equal bilaterally. No wheezes , rales, or rhonchi. GASTROINTESTINAL: Abdomen soft, non-tender, nondistended. No hepato-splenomegaly , or palpable masses. No guarding. MUSCULOSKELETAL: Extremities without clubbing, cyanosis, or edema. No joint tenderness, effusion, or edema noted. No calf tenderness. Negative Homans sign bilaterally. NEUROLOGICAL: Awake and alert. Cranial nerves II through XII intact. Motor and sensory grossly within normal limits. Five out of 5 muscle strength in all muscle groups. Normal speech. Laboratory Laboratory Tests Test 03/05/17 03/05/17 04:55 13:30 White Blood Count 6.6 Red Blood Count 4.51 Hemoglobin 14.3 Hematocrit 41.4 Mean Corpuscular Volume 91.8 Mean Corpuscular Hemoglobin 31.6 Mean Corpuscular Hemoglobin 34.4 Concent Red Cell Distribution Width 15.0 Platelet Count 164 Mean Platelet Volume 8.7 Neutrophils (%) (Auto) 67.7 Lymphocytes (%) (Auto) 21.6 Monocytes (%) (Auto) 8.3 Eosinophils (%) (Auto) 1.7 Basophils (%) (Auto) 0.7 Neutrophils # (Auto) 4.4 Lymphocytes # (Auto) 1.4 Monocytes # (Auto) 0.5 Eosinophils # (Auto) 0.1 Basophils # (Auto) 0.0 CBC Comment DIFF FINAL Differential Comment Prothrombin Time 11.5 Prothromb Time International 1.0 Ratio Activated Partial 26.5 Thromboplast Time Sodium Level 140 Potassium Level 3.8 Chloride Level 101 Carbon Dioxide Level 32.0 Anion Gap 7 Blood Urea Nitrogen 15 Creatinine 1.06 Estimat Glomerular Filtration 68 Rate Random Glucose 100 Calcium Level 9.6 Magnesium Level 1.7 Total Bilirubin 0.6 Aspartate Amino Transf 23 (AST/SGOT) Alanine Aminotransferase 19 (ALT/SGPT) Alkaline Phosphatase 69 Troponin I LESS THAN 0.02 LESS THAN 0.02 Total Protein 7.7 Albumin 3.4 Free Thyroxine 0.94 Free Triiodothyronine (T3) 2.43 pg/dL Result Diagram: 03/05/175 03/05/17454 Imaging Last Impressions Chest X-Ray 03/05/17452 Signed Impressions: Service Date/Time: Sunday, March 05, 2017 04:59 - CONCLUSION: No acute disease. Bentley Mendez MD Assessment and Plan Problem List: (1) Chest pain ICD Code: R07.9 Status: Acute (2) CAD (coronary artery disease) ICD Code: I25.10 Status: Acute (3) Hyperthyroidism ICD Code: E05.90 Status: Acute (4) HTN (hypertension) ICD Code: I10 Status: Chronic (5) HLD (hyperlipidemia) ICD Code: E78.5 Status: Chronic Assessment and Plan Mr. Melchor is a 76-year-old male with a past medical history of hypertension, hyperlipidemia, atrial fibrillation, CAD with ostial RCA stenting on Plavix and aspirin, diverticulitis, skin cancer and hyperthyroidism who presented to the ED on 03/05/2017 due to exertional chest pain. Patient was evaluated by cardiology and underwent LHC on 03/05/2017 which showed multivessel CAD. CABG was recommended. - Chest pain with failed outpatient therapy. - Multivessel Coronary artery disease on left heart cath on 03/05/2017. - Hypertension - Hyperlipidemia - s/p LHC on 03/05/2017 --> Multivessel CAD with significant stenosis of the ostial RCA, LAD diagonal bifurcation. - Failed outpatient anti-anginal medications. Patient cannot tolerate long acting nitrates. - CT surgery consulted for possible bypass of RCA, LAD and diagonal with a consideration of the ramus. - 2D echo shows EF 55-60%, Moderate AR with valve area 2.47 cm^2. - Probable CABG on Sunday03/09/2017. - Continue Aspirin 81mg Qday, Metoprolol 12.5mg BID, Losartan 100mg Qday. - Currently on Lipitor 10mg QHS. If there is no contraindication, will consider increasing dosage to 80mg QHS. - Plavix on hold. Continue Heparin gtt. - Atrial fibrillation - Was on Apixaban but it was discontinued. - [id number] score 2 (age, HTN). Defer decision to initiate anti- coagulation to cardiology. May benefit from Apixaban. - Continue Metoprolol 12.5mg BID for rate control. - Hyperthyroidism: Continue methimazole 5mg Qday. Full code. Heparin gtt. Written by Lg Weiss, acting as scribe for Dr. Morales on 03/05/17 at 15:02. All or portions of this note were transcribed by scribe Lg Weiss, PA. I, Dr. Jaden Morales personally performed the history, physical exam, and medical decision making; and confirmed the accuracy of the information in the transcribed note. Authenticated by Dr. Jaden Morales on 03/05/17 at 22:49. Discussed Condition With patient Lg Weiss Mar 05, 2017 15:04 Kp Morales DO Mar 05, 2017 22:50
[2017-03-05] MEDS: HEPARIN-D5W INJ 250 ML IV SCH (15:09)
--- NOTE | 2017-03-05 15:09 | MB ---
cc: JACQUES MAGANA MD DATE OF CONSULTATION: 03/15/2017 HISTORY OF PRESENT ILLNESS A 76-year-old male admitted 03/05/2017 for cardiac cath. This gentleman apparently has a history of coronary artery disease and underwent stenting of his ostial RCA in October 2016 with a drug-eluting stent. He was placed on Plavix at that time. Apparently he did have some residual disease in the LAD with eccentric mid 50% stenosis. He apparently did well for about three months and then three weeks ago started having mild pressure across his chest. He underwent nuclear stress testing that showed some anterior septal ischemia. They started him on some Imdur which he did not tolerate and therefore, he underwent cardiac cath by Dr. Nation which showed 90% mid to distal LAD, diagonal 70%, circumflex 40%, ostial RCA 95%. They are completing a 2-D echo at the bedside for his EF at this time. We were consulted to evaluate for coronary artery bypass grafting. His last dose of Plavix was this morning. PAST MEDICAL HISTORY 1. Hypertension. 2. Hyperlipidemia. 3. Coronary artery disease. 4. Chronic atrial fibrillation. 5. Skin cancer. 6. Hyperthyroidism. PAST SURGICAL HISTORY 1. Squamous cell skin cancer removed. 2. Tonsillectomy. ALLERGIES HE HAS INTOLERANCE TO LISINOPRIL. MEDICATIONS His home meds include: 1. Metoprolol 12.5, b.i.d. 2. Cardizem 300, daily. 3. Aspirin 325, daily. 4. Atorvastatin, 10 p.o. q.h.s. 5. Plavix 75, daily. 6. Losartan 100 daily. 7. Methimazole 5 mg daily. FAMILY HISTORY Father from heart disease, [place], had a defibrillator placed. Mother recently at 93 from old age. SOCIAL HISTORY The patient is . Smoked for 12 years, quit 47 years ago. Rare alcohol. Has two sons. REVIEW OF SYSTEMS GENERAL: In general no night sweats, fever, heat or cold intolerance. SKIN: No psoriasis, itching or hives. HEENT: No blurred vision or hearing loss. RESPIRATORY: No cough or shortness breath. CARDIOVASCULAR: As above in the HPI. GASTROINTESTINAL: No diarrhea or vomiting. GENITOURINARY: No burning, frequency or urgency. DICTATING MACHINE TYPIST: No history of TIA, CVA, seizure disorder. ENDOCRINE: Positive for hyperthyroidism. PHYSICAL EXAMINATION VITAL SIGNS: Blood pressure 150/70, heart rate 60, afebrile, room air sat 96%. GENERAL: Patient is awake, alert, in no acute distress. HEENT: Head is normocephalic, atraumatic. He has partial lower dentures. Oral mucosa pink and moist. NECK: Supple. No JVD. HEART: Heart sounds S1, S2, regular rate and rhythm. No rubs, murmurs or gallops. LUNGS: Clear to auscultation. No wheezes, rales or rhonchi. ABDOMEN: Soft, nontender. No masses or organomegaly. EXTREMITIES: No cyanosis, clubbing or edema. LABORATORY DATA Hemoglobin 14, hematocrit 41, white cell count 6.6, platelet count 164. Sodium 140, potassium 3.8, BUN 15, creatinine 1.06. Troponin less than 0.02. Free T4 0.94, free T3 2.43. INR 1.0. IMAGING DATA Chest x-ray is unremarkable. IMPRESSION This is a very pleasant 76-year-old male with multivessel disease. Cardiac films have been reviewed by Dr. Jacques Magana. PLAN The plan will be for coronary artery bypass grafting to the LAD, diagonal and right coronary artery. We are awaiting the results of his echo to evaluate his ejection fraction. His last dose again of Plavix was this morning. Will check platelet inhibition testing in the morning and possible tentative surgery date for March 09. Dictated by: HAI Jones Jacques RAMSEY /2:17 PM /3:09 PM
--- NOTE | 2017-03-05 15:39 | EC ---
Study Study Date:03/05/2017 STUDY CONCLUSIONS SUMMARY - Left ventricle: The cavity size was normal. Wall thickness was normal. Systolic function was normal. The estimated ejection fraction was in the range of 55% to 60%. Wall motion was normal; there were no regional wall motion abnormalities. - Aortic valve: Moderate regurgitation. Valve area: 2.47cm^2 (Vmax). If LV function is below 40, please consider prescribing an ACEI or ARB or document rationale for non-use. PROCEDURE DATA STUDY STATUS: Elective. Procedure: Transthoracic echocardiography. Image quality was good. Scanning was performed from the parasternal, apical, and subcostal acoustic windows. Study completion: The patient tolerated the procedure well. Transthoracic echocardiography. M-mode, complete 2D, complete spectral Doppler, and color Doppler. Height: Height: 73in. Weight: Weight: 244.5lb. Body mass index: BMI: 32.3kg/m^2. Body surface area: BSA: 2.35m^2. Patient status: Inpatient. CARDIAC ANATOMY LEFT VENTRICLE: The cavity size was normal. Wall thickness was normal. Systolic function was normal. The estimated ejection fraction was in the range of 55% to 60%. Wall motion was normal; there were no regional wall motion abnormalities. AORTIC VALVE: Trileaflet; normal thickness leaflets. Doppler: Transvalvular velocity was within the normal range. There was no stenosis. Moderate regurgitation. Valve area: 2.47cm^2 (Vmax). Indexed valve area: 1.05cm^2/m^2 (Vmax). AORTA: Aortic root: The aortic root was normal in size. MITRAL VALVE: Structurally normal valve. Doppler: Transvalvular velocity was within the normal range. There was no evidence for stenosis. No regurgitation. Valve area by pressure half-time: 3.14cm^2. Indexed valve area by pressure half-time: 1.34cm^2/m^2. Peak gradient: 3mm Hg (D). LEFT ATRIUM: The atrium was normal in size. RIGHT VENTRICLE: The cavity size was normal. Wall thickness was normal. PULMONIC VALVE: Doppler: Transvalvular velocity was within the normal range. There was no evidence for stenosis. No regurgitation. TRICUSPID VALVE: Structurally normal valve. Doppler: Transvalvular velocity was within the normal range. No regurgitation. PULMONARY ARTERY: The main pulmonary artery was normal-sized. Systolic pressure was within the normal range. RIGHT ATRIUM: The atrium was normal in size. PERICARDIUM: There was no pericardial effusion. SYSTEMIC VEINS: Inferior vena cava: The vessel was normal in size. Patient weight: 244.5lb _Ejection fraction:_ 65-75% _Fractional shortening:_ 32% up to 5Kg 5-11.5Kg 11.6-22.9Kg 23-45Kg 45-57Kg Aortic Root 7-13 <17 13-22 17-27 17-27 LA diam 6-13 <23 24-38 33-47 37-40 RVID 10-17 7-15 7-15 7-18 8-17 LVIDd 12-22 <32 24-38 33-47 37-40 LVPW 2-4 3-6 5-7 6-8 7-8 IVS 2-4 3-6 5-7 6-8 7-8 BASIC MEASUREMENTS ADULT NORMAL Left ventricle LV internal dimension, ED, chordal 44.2 mm 43-52 level, PLAX LV internal dimension, ES, chordal 31.5 mm 23-38 level, PLAX Fractional shortening, chordal level, *29 % >29 PLAX LV posterior wall thickness, ED 10.9 mm IVS/LVPW ratio, ED 0.92 <1.3 Volume, ED, MOD, 1-plane 197 ml Volume, ES, MOD, 1-plane 62 ml Ejection fraction, MOD, 1-plane 69 % Stroke volume, MOD, 1-plane 135 ml Volume index, ED, MOD, 1-plane 84 ml/m^2 Volume index, ES, MOD, 1-plane 26 ml/m^2 Stroke index, MOD, 1-plane 57.4 ml/m^2 Ventricular septum Septal thickness, ED 10 mm Aortic valve Leaflet separation 21 mm 15-26 Aorta Root diameter, ED 32 mm Left atrium Anterior-posterior dimension 39 mm Anterior-posterior dimension index 1.66 cm/m^2 <2.2 Right ventricle RV internal dimension, ED, PLAX 33.4 mm 19-38 BASIC MEASUREMENTS ADULT NORMAL Aortic valve Leaflet separation 21 mm 15-26 Aorta Root diameter, ED *40 mm 20-37 DOPPLER MEASUREMENTS ADULT NORMAL Main pulmonary artery Pressure, S 30 mm Hg =30 Aortic valve Peak velocity, S 149 cm/s Valve area, Vmax 2.47 cm^2 Valve area index, Vmax 1.05 cm^2/m^2 Regurgitant velocity, ED 414 cm/s Regurgitant deceleration 2580 cm/s^2 Regurgitant pressure half-time 512 ms Regurgitant gradient, ED 69 mm Hg Mitral valve Peak E-wave velocity 88.8 cm/s Peak A-wave velocity 47.4 cm/s Pressure half-time 70 ms Peak gradient, D 3 mm Hg Peak E/A ratio 1.9 Valve area, pressure half-time 3.14 cm^2 Valve area index, pressure half-time 1.34 cm^2/m^2 Tricuspid valve Regurgitant peak velocity 252 cm/s Peak RV-RA gradient, S 25 mm Hg Maximal regurgitant velocity 252 cm/s Systemic veins Estimated CVP 10 mm Hg Right ventricle RV pressure, S *35 mm Hg <30 Pulmonic valve Peak velocity, S 111 cm/s Acceleration time 722 ms LEGEND: Mean values are shown as u=mean value. Asterisk (*) tatum values outside specified normal range. Prepared and signed by Mainor Hernández [id number]
[2017-03-05 16:27] LABS: HDL CHOLESTEROL 41.3 MG/DL (40.0-60.0); TOTAL BILIRUBIN ADULT 0.7 MG/DL (0.2-1.0)
[2017-03-05 16:28] LABS: INDIRECT BILIRUBIN 0.6 MG/DL (0.0-0.8)
--- NOTE | 2017-03-05 16:40 | PD.CAR.PN ---
CVT Progress Note Subjective/Hospital Course: sts data discussed with pt RISK SCORES About the STS Risk Calculator Procedure: CAB Only Risk of Mortality: 1.785% Morbidity or Mortality: 14.872% Long Length of Stay: 6.501% Short Length of Stay: 28.603% Permanent Stroke: 0.941% Prolonged Ventilation: 9.909% DSW Infection: 0.492% Renal Failure: 4.031% Reoperation: 5.652% Objective: Vital Signs Date Time Temp Pulse Resp B/P Pulse Ox O2 Delivery O2 Flow Rate FiO2 03/05/17 15:30 98.9 51 20 161/72 99 03/05/17 13:33 54 03/05/17 12:42 97.9 51 20 142/57 96 03/05/17 12:00 51 03/05/17 10:58 96 Room Air 03/05/17 08:56 98.0 50 20 154/66 93 03/05/17 08:19 57 14 152/80 100 03/05/17 08:16 57 14 152/80 100 Room Air 03/05/17 07:07 45 14 175/73 99 Room Air 03/05/17 06:18 98.2 92 18 159/67 100 Room Air 03/05/17 04:55 99 Room Air 03/05/17 04:55 99 Room Air 03/05/17 04:44 48 18 179/77 99 Room Air 03/05/17 04:28 98.6 50 16 194/77 98 Room Air Labs: Laboratory Tests Test 03/05/17 03/05/17 04:55 13:30 White Blood Count 6.6 TH/MM3 (4.0-11.0) Red Blood Count 4.51 MIL/MM3 (4.50-5.90) Hemoglobin 14.3 GM/DL (13.0-17.0) Hematocrit 41.4 % (39.0-51.0) Mean Corpuscular Volume 91.8 FL (80.0-100.0) Mean Corpuscular Hemoglobin 31.6 PG (27.0-34.0) Mean Corpuscular Hemoglobin 34.4 % Concent (32.0-36.0) Red Cell Distribution Width 15.0 % (11.6-17.2) Platelet Count 164 TH/MM3 (150-450) Mean Platelet Volume 8.7 FL (7.0-11.0) Neutrophils (%) (Auto) 67.7 % (16.0-70.0) Lymphocytes (%) (Auto) 21.6 % (9.0-44.0) Monocytes (%) (Auto) 8.3 % (0.0-8.0) Eosinophils (%) (Auto) 1.7 % (0.0-4.0) Basophils (%) (Auto) 0.7 % (0.0-2.0) Neutrophils # (Auto) 4.4 TH/MM3 (1.8-7.7) Lymphocytes # (Auto) 1.4 TH/MM3 (1.0-4.8) Monocytes # (Auto) 0.5 TH/MM3 (0-0.9) Eosinophils # (Auto) 0.1 TH/MM3 (0-0.4) Basophils # (Auto) 0.0 TH/MM3 (0-0.2) CBC Comment DIFF FINAL Differential Comment Prothrombin Time 11.5 SEC (9.8-11.6) Prothromb Time International 1.0 RATIO Ratio Activated Partial 26.5 SEC Thromboplast Time (24.3-30.1) Sodium Level 140 MEQ/L (136-145) Potassium Level 3.8 MEQ/L (3.5-5.1) Chloride Level 101 MEQ/L (98-107) Carbon Dioxide Level 32.0 MEQ/L (21.0-32.0) Anion Gap 7 MEQ/L (5-15) Blood Urea Nitrogen 15 MG/DL (7-18) Creatinine 1.06 MG/DL (0.60-1.30) Estimat Glomerular Filtration 68 ML/MIN (>89) Rate Random Glucose 100 MG/DL (74-106) Calcium Level 9.6 MG/DL (8.5-10.1) Magnesium Level 1.7 MG/DL (1.5-2.5) Total Bilirubin 0.7 MG/DL (0.2-1.0) Direct Bilirubin 0.1 MG/DL (0.0-0.2) Indirect Bilirubin 0.6 MG/DL (0.0-0.8) Aspartate Amino Transf 28 U/L (15-37) (AST/SGOT) Alanine Aminotransferase 24 U/L (12-78) (ALT/SGPT) Alkaline Phosphatase 61 U/L (45-117) Troponin I LESS THAN 0.02 LESS THAN 0.02 NG/ML NG/ML (0.02-0.05) (0.02-0.05) Total Protein 7.6 GM/DL (6.4-8.2) Albumin 3.5 GM/DL (3.4-5.0) Triglycerides Level 132 MG/DL (42-150) Cholesterol Level 92 MG/DL (120-200) LDL Cholesterol 24 MG/DL (0-99) HDL Cholesterol 41.3 MG/DL (40.0-60.0) Cholesterol/HDL Ratio 2.22 RATIO Free Thyroxine 0.94 NG/DL (0.76-1.46) Free Triiodothyronine (T3) 2.43 PG/ML pg/dL (2.18-3.98) Result Diagram: 03/05/17 0455 03/05/17 0455 Shreya Franco Mar 05, 2017 16:40
[2017-03-05 16:51] LABS: BLOOD, URINE NEG (NEG); COMMENT (UR) CULT NOT INDICATED; CULTURE IF INDICATED CULT NOT INDICATED; GLUCOSE,URINE NEG (NEG); KETONE, URINE NEG (NEG); NITRITE,URINE NEG (NEG); URINE COLOR YELLOW (YELLW/STRAW)
[2017-03-05] MEDS: ACETAMINOPHEN 325 MG TAB PO PRN (17:48)
[2017-03-05] MEDS ORDERED: HEPARIN SODIUM - IV 10,000 UNITS/10 ML VIAL IV PRN (18:00)
--- NOTE | 2017-03-05 19:40 | RADRPT ---
EXAM DATE/TIME: 03/05/2017 16:46 [facility] COMPARISON: No previous studies available for comparison. INDICATIONS : Preop cardiac surgery. MEDICAL HISTORY : CAD. Afib. Hyperlipidemia. Hypertension. Hyperthyroid. Myocardiac infarct. SURGICAL HISTORY : Cardiac catheterization. Cardiac stent. ENCOUNTER: Initial ACUITY: 1 day PAIN SCORE: 2/10 LOCATION: Bilateral leg. TECHNIQUE: Venous ultrasound of the left and right leg was performed from the inguinal ligament to the proximal calf. Real-time, color Doppler and spectral tracing, compression and augmentation techniques were us ed. FINDINGS: RIGHT LEG: There is normal compressibility of the deep venous system from the inguinal region to the proximal ca lf. No echogenic clot is seen in the lumen of the common femoral, femoral, popliteal, and posterior tibial veins. There is a normal response of the venous system to proximal and distal augmentation an d respiration. LEFT LEG: There is normal compressibility of the deep venous system from the inguinal region to the proximal ca lf. No echogenic clot is seen in the lumen of the common femoral, femoral, popliteal, and posterior tibial veins. There is a normal response of the venous system to proximal and distal augmentation an d respiration. CONCLUSION: Negative for deep venous thrombosis.. Ilia Robison MD FACR on March 05, 2017 at 19:23 Board Certified Radiologist. This report was verified electronically.
--- NOTE | 2017-03-05 19:45 | RADRPT ---
EXAM DATE/TIME: 03/05/2017 16:33 [facility] COMPARISON: No previous studies available for comparison. INDICATIONS : Preop cardiac surgery. MEDICAL HISTORY : CAD. Afib. Hyperlipidemia. Hypertension. Hyperthyroid. Myocardiac in farct. SURGICAL HISTORY : Cardiac stent. Cardiac catheterization. ENCOUNTER: Initial ACUITY: 1 day PAIN SCORE: 12/05 LOCATION: Bilateral neck PEAK SYSTOLIC VELOCITIES (cm/sec): ICA/CCA RATIO: Right: 0.7 Left: 1.0 ICA: Right: 102 Left: 129 CCA: Right: 156 Left: 128 ECA: Right: 140 Left: 144 VERTEBRAL: Right: 61 antegrade Left: 63 antegrade Elevated flow velocities and ICA/CCA ratios have been found to correlate with increased degrees of vessel stenosis, calculated as percentage of diameter relative to a normal segment of distal ICA/CCA FINDINGS: RIGHT CAROTID: There is no evidence for a hemodynamically significant carotid stenosis. Minimal int imal hyperplasia is present with scattered calcific plaque. LEFT CAROTID: There is no evidence for a hemodynamically significant carotid stenosis. Minimal inti mal hyperplasia is present with scattered calcific plaque. VERTEBRAL ARTERIES: Flow is antegrade in both vertebral arteries. MISCELLANEOUS: There are no ancillary masses or adenopathy. CONCLUSION: Negative examination for a hemodynamically significant carotid stenosis. Ilia Robison MD FACR Board Certified Radiologist. This report was verified electronically.
--- NOTE | 2017-03-05 19:46 | RADRPT ---
EXAM DATE/TIME: 03/05/2017 16:53 [facility] COMPARISON: No previous studies available for comparison. INDICATIONS : Preop cardiac surgery. MEDICAL HISTORY : CAD. Afib. Hyperlipidemia. Hypertension. Hyperthyroid. Myocardiac infarct. SURGICAL HISTORY : Cardiac stent. Cardiac catheterization. ENCOUNTER: Initial ACUITY: 1 day PAIN SCORE: 2/10 LOCATION: Bilateral leg. GREATER SAPHENOUS VEIN THIGH: PROXIMAL: Right 4 mm Left 5 mm MID: Right 4 mm Left 5 mm DISTAL: Right 3 mm Left 4 mm CALF: PROXIMAL: Right 2 mm Left 4 mm MID: Right 3 mm Left Non-visualized DISTAL: Right 2 mm Left Non-visualized FINDINGS: The venous system of the lower extremities are patent by color Doppler imaging. Measurements of the leg veins (in mm) are listed above. CONCLUSION: Venous mapping as described above Ilia Robison MD FACR on March 05, 2017 at 19:44 Board Certified Radiologist. This report was verified electronically.
[2017-03-05] MEDS ORDERED: ATORVASTATIN 10 MG TAB PO SCH (21:00)
[2017-03-05] MEDS: SODIUM CHLORIDE 0.9% FLUSH 10 ML FLUSH IV FLUSH SCH (21:00)
[2017-03-05 21:30] LABS: APTT (PATIENT) 32.4 SEC (24.3-30.1)
[2017-03-05] MEDS: HEPARIN SODIUM - IV 10,000 UNITS/10 ML VIAL IV PRN (22:18)
[2017-03-06] VITALS (25 sets, daily range): BP systolic 129–142; BP diastolic 56–76; PULSE 42–64; RESP 16–19; TEMP 97.9–98.7; O2SAT 93–100
[2017-03-06 04:47] LABS: AUTOMATED NEUTROPHIL # 4.4 TH/MM3 (1.8-7.7); BASOPHIL % 0.5 % (0.0-2.0); EOSINOPHIL # 0.1 TH/MM3 (0-0.4); EOSINOPHIL % 1.8 % (0.0-4.0); HEMATOCRIT 39.1 % (39.0-51.0); HEMO FLAGS DIFF FINAL; LYMPH % 22.4 % (9.0-44.0); LYMPHOCYTE # 1.5 TH/MM3 (1.0-4.8); MEAN CELL VOLUME 91.6 FL (80.0-100.0); MEAN CORPUSCULAR HEMOGLOBIN 31.7 PG (27.0-34.0); MEAN CORPUSCULAR HGB CONC 34.6 % (32.0-36.0); MONO % 7.8 % (0.0-8.0); NEUT % 67.5 % (16.0-70.0); PLATELET COUNT 148 TH/MM3 (150-450); RED BLOOD COUNT 4.26 MIL/MM3 (4.50-5.90); RED CELL DISTRIBUTION WIDTH 15.1 % (11.6-17.2); WHITE BLOOD COUNT 6.6 TH/MM3 (4.0-11.0)
[2017-03-06 05:03] LABS: APTT (PATIENT) 39.7 SEC (24.3-30.1)
[2017-03-06 05:14] LABS: ANION GAP 9 MEQ/L (5-15); AST (GOT) 9 U/L (15-37); BICARBONATE 32.1 MEQ/L (21.0-32.0); BLOOD UREA NITROGEN 17 MG/DL (7-18); CHLORIDE 103 MEQ/L (98-107); GLOMERULAR FILTRATION RATE 78 ML/MIN (>89); POTASSIUM 3.8 MEQ/L (3.5-5.1); SODIUM (NA) 144 MEQ/L (136-145)
[2017-03-06 05:18] LABS: ALKALINE PHOSPHATASE 63 U/L (45-117); ALT (GPT) 18 U/L (12-78); TOTAL BILIRUBIN ADULT 0.6 MG/DL (0.2-1.0)
[2017-03-06 05:30] LABS: P2Y12 REACTION UNITS (PRU) 187 PRU (194-418)
[2017-03-06] MEDS: HEPARIN SODIUM - IV 10,000 UNITS/10 ML VIAL IV PRN ×2 (05:46→18:41)
--- NOTE | 2017-03-06 07:41 | PD.CARD.PN ---
Subjective Subjective Remarks Pt without complaints Objective Medications Current Medications Medications (Trade) Dose Ordered Sig/Raymond Route Start Time Stop Time Status Last Admin (Zofran Inj) 4 mg Q6H PRN IVP 03/05/17 06:15 (Dulcolax Supp) 10 mg DAILY PRN RECTAL 03/05/17 06:15 (Tylenol) 650 mg Q6H PRN PO 03/05/17 06:15 03/05/17 17:48 ([place] 5-325 Mg) 1 tab Q4H PRN PO 03/05/17 06:15 (Morphine Inj) 2 mg Q3H PRN IV 03/05/17 06:15 (Nitroglycerin 2% Oint) 0.5 inch Q6H PRN TOPICAL 03/05/17 06:15 (Cardizem Cd) 300 mg DAILY PO 03/05/17 09:00 (Lozol) 2.5 mg DAILY PO 03/05/17 09:00 (Cozaar) 100 mg DAILY PO 03/05/17 09:00 (Tapazole) 5 mg DAILY PO 03/05/17 09:00 (Lopressor) 12.5 mg BID PO 03/05/17 09:00 (Theragran) 1 tab DAILY PO 03/05/17 09:00 03/05/17 09:00 (Pill Splitter) 1 ea UNSCH PRN OTHER 03/05/17 06:45 (Aspirin Chew) 81 mg DAILY CHEW 03/06/17 09:00 (Heparin Inj) 5,000 units UNSCH PRN IV 03/05/17 18:00 Heparin Sodium (Porcine) 2500 units 2,500 units UNSCH PRN IV 03/05/17 18:00 03/06/17 05:46 (Heparin-D5W Inj) 250 ml @ 0 mls/hr TITRATE IV 03/05/17 12:00 03/05/17 15:09 (NS Flush) 2 ml BID IV FLUSH 03/05/17 21:00 (NS Flush) 2 ml UNSCH PRN IV FLUSH 03/05/17 13:45 (Lipitor) 80 mg HS PO 03/06/17 21:00 Vital Signs / I&O Vital Signs Date Time Temp Pulse Resp B/P Pulse Ox O2 Delivery O2 Flow Rate FiO2 03/06/17 06:00 52 03/06/17 05:00 48 03/06/17 04:00 50 03/06/17 03:00 98.7 57 16 139/71 93 03/06/17 03:00 50 03/06/17 02:00 44 03/06/17 01:00 46 03/06/17 00:00 44 03/05/17 23:00 98.5 51 16 140/64 94 03/05/17 23:00 48 03/05/17 22:00 50 03/05/17 21:00 66 03/05/17 20:00 48 03/05/17 19:00 52 03/05/17 19:00 98.1 56 16 135/55 95 03/05/17 19:00 16 03/05/17 18:09 55 03/05/17 17:00 52 03/05/17 16:00 50 03/05/17 15:30 98.9 51 20 161/72 99 03/05/17 15:00 48 03/05/17 14:00 46 03/05/17 13:33 54 03/05/17 12:42 97.9 51 20 142/57 96 03/05/17 12:00 51 03/05/17 10:58 96 Room Air 03/05/17 08:56 98.0 50 20 154/66 93 03/05/17 08:19 57 14 152/80 100 03/05/17 08:16 57 14 152/80 100 Room Air I/O 03/05/17 03/05/17 03/05/17 03/06/17 03/06/17 03/06/17 07:00 15:00 23:00 07:00 15:00 23:00 Intake Total 480 ml 385 ml Output Total 450 ml 640 ml Balance 30 ml -255 ml Intake Oral 480 ml 240 ml IV Total 145 ml Output Urine Total 450 ml 640 ml # Bowel Movements 1 Physical Exam GENERAL: Well developed, well nourished. No acute distress. HEENT: Jugular venous pressure is normal. CHEST: Lungs clear to auscultation bilaterally. Unlabored respiratory effort. CARDIAC: Regular rate and rhythm without S3, S4, or murmur. ABDOMEN: Soft, nontender, no hepatosplenomegaly. Bowel sounds present. EXTREMITIES: No clubbing, cyanosis, or edema. Right Rad site good, hand warm and pink Laboratory Laboratory Tests Test 03/05/17 03/05/17 03/05/17 03/05/17 13:30 15:00 16:00 17:26 Troponin I LESS THAN 0.02 LESS THAN 0.02 NG/ML NG/ML Nasal Screen MRSA (PCR) NEGATIVE Urine Color YELLOW Urine Turbidity CLEAR Urine pH 7.0 Urine Specific Cable 1.025 Urine Protein NEG mg/dL Urine Glucose (UA) NEG mg/dL Urine Ketones NEG mg/dL Urine Occult Blood NEG Urine Nitrite NEG Urine Bilirubin NEG Urine Urobilinogen LESS THAN 2.0 MG/DL Urine Leukocyte Esterase NEG Urine RBC LESS THAN 1 /hpf Urine WBC LESS THAN 1 /hpf Microscopic Urinalysis Comment CULT NOT INDICATED Test 03/05/17 03/06/17 21:11 04:23 Activated Partial 32.4 SEC 39.7 SEC Thromboplast Time White Blood Count 6.6 TH/MM3 Red Blood Count 4.26 MIL/MM3 Hemoglobin 13.5 GM/DL Hematocrit 39.1 % Mean Corpuscular Volume 91.6 FL Mean Corpuscular Hemoglobin 31.7 PG Mean Corpuscular Hemoglobin 34.6 % Concent Red Cell Distribution Width 15.1 % Platelet Count 148 TH/MM3 Mean Platelet Volume 8.7 FL Neutrophils (%) (Auto) 67.5 % Lymphocytes (%) (Auto) 22.4 % Monocytes (%) (Auto) 7.8 % Eosinophils (%) (Auto) 1.8 % Basophils (%) (Auto) 0.5 % Neutrophils # (Auto) 4.4 TH/MM3 Lymphocytes # (Auto) 1.5 TH/MM3 Monocytes # (Auto) 0.5 TH/MM3 Eosinophils # (Auto) 0.1 TH/MM3 Basophils # (Auto) 0.0 TH/MM3 CBC Comment DIFF FINAL Differential Comment Platelet Function [id number] React 187 PRU Units Sodium Level 144 MEQ/L Potassium Level 3.8 MEQ/L Chloride Level 103 MEQ/L Carbon Dioxide Level 32.1 MEQ/L Anion Gap 9 MEQ/L Blood Urea Nitrogen 17 MG/DL Creatinine 0.94 MG/DL Estimat Glomerular Filtration 78 ML/MIN Rate Random Glucose 97 MG/DL Calcium Level 9.1 MG/DL Total Bilirubin 0.6 MG/DL Aspartate Amino Transf 9 U/L (AST/SGOT) Alanine Aminotransferase 18 U/L (ALT/SGPT) Alkaline Phosphatase 63 U/L Total Protein 6.9 GM/DL Albumin 3.2 GM/DL Assessment and Plan Problem List: (1) CAD (coronary artery disease) Assessment and Plan: Severe multivessel CAD with progression of LAD bifurcation lesion with Diag, and ISR RCA stent CT consult appreciated, awaiting surgery Plavix stopped (2) Atrial fibrillation Assessment and Plan: luis a to 40's agree with holding metoprolol consider LA Ligation and or MAZE with CABG (3) HTN (hypertension) (4) HLD (hyperlipidemia) (5) Angina pectoris Natalie Hamilton MD Mar 06, 2017 07:41
[2017-03-06] MEDS: METHIMAZOLE 5 MG TAB PO SCH (08:56)
[2017-03-06] MEDS: DILTIAZEM-CD 300 MG CAP ER PO SCH (08:57)
[2017-03-06] MEDS: MULTIVITAMIN TAB PO SCH (08:57)
[2017-03-06] MEDS: LOSARTAN 50 MG TAB PO SCH (08:57)
[2017-03-06] MEDS: ASPIRIN 81 MG CHEW TAB CHEW SCH (08:58)
[2017-03-06] MEDS: METOPROLOL TARTRATE 25 MG TAB PO SCH ×2 (08:58→21:00)
[2017-03-06] MEDS: INDAPAMIDE 2.5 MG TAB PO SCH (08:58)
[2017-03-06] MEDS: SODIUM CHLORIDE 0.9% FLUSH 10 ML FLUSH IV FLUSH SCH ×2 (08:59→21:04)
--- NOTE | 2017-03-06 10:36 | PD.CAR.PN ---
CVT Progress Note Subjective/Hospital Course: 76/ male HX CAD unstable angina , recent SARAH to ostial RCA in 11/10, did well initial 3 months then developed recurrent chest pain about 3 weeks ago , underwent nuclear stress testing 02/23 which showed anteroseptal ischemia . Underwent cardiac cath by Dr Nation 03/05 90% mid /distal LAD, 70% diagonal, RCA 95%, ramus 60% EF 55%, ECH showed mod AI pt had been on plavix at home, last dose 03/05/17 PMH : CAD, HTN, HLP Afib, skin cancer, hyperthyroidism 03/06 pt currently pain free, on Heparin gtt PRU 187 scheduled for surgery on Sunday on statin and ASA Objective: GENERAL: SKIN: Warm and dry. HEAD: Normocephalic. EYES: No scleral icterus. No injection or drainage. NECK: Supple, trachea midline. No JVD or lymphadenopathy. CARDIOVASCULAR: Regular rate and rhythm without murmurs, gallops, or rubs. RESPIRATORY: Breath sounds equal bilaterally. No accessory muscle use. GASTROINTESTINAL: Abdomen soft, non-tender, nondistended. MUSCULOSKELETAL: No cyanosis, or edema. BACK: Nontender without obvious deformity. No CVA tenderness. Vital Signs Date Time Temp Pulse Resp B/P Pulse Ox O2 Delivery O2 Flow Rate FiO2 03/06/17 10:07 64 03/06/17 09:22 59 03/06/17 08:00 54 03/06/17 07:00 50 03/06/17 07:00 98.7 56 17 142/76 94 03/06/17 06:00 52 03/06/17 05:00 48 03/06/17 04:00 50 03/06/17 03:00 98.7 57 16 139/71 93 03/06/17 03:00 50 03/06/17 02:00 44 03/06/17 01:00 46 03/06/17 00:00 44 03/05/17 23:00 98.5 51 16 140/64 94 03/05/17 23:00 48 03/05/17 22:00 50 03/05/17 21:00 66 03/05/17 20:00 48 03/05/17 19:00 52 03/05/17 19:00 98.1 56 16 135/55 95 03/05/17 19:00 16 03/05/17 18:09 55 03/05/17 17:00 52 03/05/17 16:00 50 03/05/17 15:30 98.9 51 20 161/72 99 03/05/17 15:00 48 03/05/17 14:00 46 03/05/17 13:33 54 03/05/17 12:42 97.9 51 20 142/57 96 03/05/17 12:00 51 03/05/17 10:58 96 Room Air Labs: Laboratory Tests Test 03/06/17 04:23 White Blood Count 6.6 TH/MM3 (4.0-11.0) Red Blood Count 4.26 MIL/MM3 (4.50-5.90) Hemoglobin 13.5 GM/DL (13.0-17.0) Hematocrit 39.1 % (39.0-51.0) Mean Corpuscular Volume 91.6 FL (80.0-100.0) Mean Corpuscular Hemoglobin 31.7 PG (27.0-34.0) Mean Corpuscular Hemoglobin 34.6 % Concent (32.0-36.0) Red Cell Distribution Width 15.1 % (11.6-17.2) Platelet Count 148 TH/MM3 (150-450) Mean Platelet Volume 8.7 FL (7.0-11.0) Neutrophils (%) (Auto) 67.5 % (16.0-70.0) Lymphocytes (%) (Auto) 22.4 % (9.0-44.0) Monocytes (%) (Auto) 7.8 % (0.0-8.0) Eosinophils (%) (Auto) 1.8 % (0.0-4.0) Basophils (%) (Auto) 0.5 % (0.0-2.0) Neutrophils # (Auto) 4.4 TH/MM3 (1.8-7.7) Lymphocytes # (Auto) 1.5 TH/MM3 (1.0-4.8) Monocytes # (Auto) 0.5 TH/MM3 (0-0.9) Eosinophils # (Auto) 0.1 TH/MM3 (0-0.4) Basophils # (Auto) 0.0 TH/MM3 (0-0.2) CBC Comment DIFF FINAL Differential Comment Activated Partial 39.7 SEC Thromboplast Time (24.3-30.1) Platelet Function P2Y12 React 187 PRU Units (194-418) Sodium Level 144 MEQ/L (136-145) Potassium Level 3.8 MEQ/L (3.5-5.1) Chloride Level 103 MEQ/L (98-107) Carbon Dioxide Level 32.1 MEQ/L (21.0-32.0) Anion Gap 9 MEQ/L (5-15) Blood Urea Nitrogen 17 MG/DL (7-18) Creatinine 0.94 MG/DL (0.60-1.30) Estimat Glomerular Filtration 78 ML/MIN (>89) Rate Random Glucose 97 MG/DL (74-106) Calcium Level 9.1 MG/DL (8.5-10.1) Total Bilirubin 0.6 MG/DL (0.2-1.0) Aspartate Amino Transf 9 U/L (15-37) (AST/SGOT) Alanine Aminotransferase 18 U/L (12-78) (ALT/SGPT) Alkaline Phosphatase 63 U/L (45-117) Total Protein 6.9 GM/DL (6.4-8.2) Albumin 3.2 GM/DL (3.4-5.0) Result Diagram: 03/06/1742203/06/17422 Telemetry: NSR (1) CAD (coronary artery disease) Plan: Severe multivessel CAD with progression of LAD bifurcation lesion with Diag, and ISR RCA stent Plavix stopped/ on heparin gtt scheduled for surgery on Sunday (2) Atrial fibrillation Plan: luis a to 40's agree with holding metoprolol will notify Dr Chua in regards to consideration of LA Ligation and or MAZE with CABG (3) HTN (hypertension) Plan: BP controlled (4) HLD (hyperlipidemia) Plan: on statin (5) Angina pectoris Shreya Franco Mar 06, 2017 10:36
[2017-03-06] MEDS: ACETAMINOPHEN 325 MG TAB PO PRN ×2 (11:44→21:33)
[2017-03-06 12:11] LABS: APTT (PATIENT) 41.3 SEC (24.3-30.1)
--- NOTE | 2017-03-06 12:23 | HHI.PR ---
Subjective Remarks Follow-up for CAD. Patient denies any complaints or issues overnight. He does have some upper back discomfort from lying in bed, no specific chest pain. Patient normally takes Lipitor 80 mg at home. The patient's Toprol was held this morning due to bradycardia, discussed with RN. Objective Vitals Vital Signs Date Time Temp Pulse Resp B/P Pulse Ox O2 Delivery O2 Flow Rate FiO2 03/06/17 10:07 64 03/06/17 09:22 59 03/06/17 08:00 54 03/06/17 07:00 50 03/06/17 07:00 98.7 56 17 142/76 94 03/06/17 06:00 52 03/06/17 05:00 48 03/06/17 04:00 50 03/06/17 03:00 98.7 57 16 139/71 93 03/06/17 03:00 50 03/06/17 02:00 44 03/06/17 01:00 46 03/06/17 00:00 44 03/05/17 23:00 98.5 51 16 140/64 94 03/05/17 23:00 48 03/05/17 22:00 50 03/05/17 21:00 66 03/05/17 20:00 48 03/05/17 19:00 52 03/05/17 19:00 98.1 56 16 135/55 95 03/05/17 19:00 16 03/05/17 18:09 55 03/05/17 17:00 52 03/05/17 16:00 50 03/05/17 15:30 98.9 51 20 161/72 99 03/05/17 15:00 48 03/05/17 14:00 46 03/05/17 13:33 54 03/05/17 12:42 97.9 51 20 142/57 96 I/O 03/05/17 03/05/17 03/05/17 03/06/17 03/06/17 03/06/17 07:00 15:00 23:00 07:00 15:00 23:00 Intake Total 480 ml 385 ml Output Total 450 ml 640 ml Balance 30 ml -255 ml Intake Oral 480 ml 240 ml IV Total 145 ml Output Urine Total 450 ml 640 ml # Bowel Movements 1 Result Diagram: 03/06/17 0423 03/06/17 0423 Imaging Last Impressions Chest X-Ray 03/05/17 0453 Signed Impressions: Service Date/Time: Sunday, March 05, 2017 04:59 - CONCLUSION: No acute disease. Bentley Mendez MD Lower Extremity Ultrasound 03/05/17 0000 Signed Impressions: Service Date/Time: Sunday, March 05, 2017 16:53 - CONCLUSION: Venous mapping as described above Ilia Robison MD FACR Carotid Artery Ultrasound 03/05/17 0000 Signed Impressions: Service Date/Time: Sunday, March 05, 2017 16:33 - CONCLUSION: Negative examination for a hemodynamically significant carotid stenosis. Ilia Robison MD Objective Remarks GENERAL: Well-developed well-nourished. In no acute distress. SKIN: Warm and dry. No lesions noted. HEENT: Normocephalic. Pupils equal and round. Mucous membranes pink and moist. CARDIOVASCULAR: Slightly bradycardic rate and rhythm. No murmur appreciated. RESPIRATORY: No accessory muscle use. Clear to auscultation. Breath sounds equal bilaterally. GASTROINTESTINAL: Abdomen soft, non-tender, nondistended. Bowel sounds x4. MUSCULOSKELETAL: No obvious deformities. No clubbing or cyanosis. No edema. NEUROLOGICAL: Awake and alert. No focal neurological deficits. Moves upper and lower extremities spontaneously. Normal speech. PSYCHIATRIC: Appropriate mood and affect; insight and judgment normal. A/P Problem List: (1) Chest pain ICD Code: R07.9 Status: Acute (2) CAD (coronary artery disease) ICD Code: I25.10 Status: Acute (3) Hyperthyroidism ICD Code: E05.90 Status: Acute (4) HTN (hypertension) ICD Code: I10 Status: Chronic (5) HLD (hyperlipidemia) ICD Code: E78.5 Status: Chronic Assessment and Plan Mr. Melchor is a 76-year-old male with a past medical history of hypertension, hyperlipidemia, atrial fibrillation, CAD with ostial RCA stenting on Plavix and aspirin, diverticulitis, skin cancer and hyperthyroidism who presented to the ED on 03/05/2017 due to exertional chest pain. Patient was evaluated by cardiology and underwent LHC on 03/05/2017 which showed multivessel CAD. CABG was recommended. - Chest pain with failed outpatient therapy. - Multivessel Coronary artery disease on left heart cath on 03/05/2017. - Hypertension - Hyperlipidemia - s/p LHC on 03/05/2017 --> Multivessel CAD with significant stenosis of the ostial RCA, LAD diagonal bifurcation. - Failed outpatient anti-anginal medications. Patient cannot tolerate long acting nitrates. - CT surgery consulted for possible bypass of RCA, LAD and diagonal with a consideration of the ramus. - 2D echo shows EF 55-60%, Moderate AR with valve area 2.47 cm^2. - Plan for CABG on Sunday03/09/2017. - Continue Aspirin 81mg Qday, Metoprolol 12.5mg BID, Losartan 100mg Qday, Lipitor 80 mg Qhs. - Plavix on hold. Continue Heparin gtt. - Atrial fibrillation - Was on Apixaban but it was discontinued. - [id number] score 2 (age, HTN). Defer decision to initiate anti- coagulation to cardiology. May benefit from Apixaban. - Continue Metoprolol 12.5mg BID for rate control with hold parameters. - Hyperthyroidism: Continue methimazole 5mg Qday. Full code. Heparin gtt. Written by Lg Weiss, acting as scribe for Dr. Morales on 03/06/17 at 12:22. All or portions of this note were transcribed by JEISON Bucio. I, Dr. Jaden Morales personally performed the history, physical exam, and medical decision making; and confirmed the accuracy of the information in the transcribed note. Authenticated by Dr. Jaden Morales on 03/06/17 at 16:58. Lg Weiss Mar 06, 2017 12:23 Kp Morales DO Mar 06, 2017 16:59
[2017-03-06] MEDS: HEPARIN-D5W INJ 250 ML IV SCH (13:06)
[2017-03-06 18:31] LABS: APTT (PATIENT) 35.9 SEC (24.3-30.1)
[2017-03-06] MEDS: ATORVASTATIN 80 MG TAB PO SCH (21:04)
[2017-03-07] VITALS (28 sets, daily range): BP systolic 104–158; BP diastolic 49–67; PULSE 44–64; RESP 16–18; TEMP 97.7–98.4; O2SAT 97–100
[2017-03-07 01:14] LABS: APTT (PATIENT) 45.2 SEC (24.3-30.1)
[2017-03-07 06:48] LABS: APTT (PATIENT) 44.7 SEC (24.3-30.1)
--- NOTE | 2017-03-07 07:08 | PD.CARD.PN ---
Subjective Subjective Remarks Pt without complaints Objective Medications Current Medications Medications (Trade) Dose Ordered Sig/[place]mond Route Start Time Stop Time Status Last Admin (Zofran Inj) 4 mg Q6H PRN IVP 03/05/17 06:15 (Dulcolax Supp) 10 mg DAILY PRN RECTAL 03/05/17 06:15 (Tylenol) 650 mg Q6H PRN PO 03/05/17 06:15 03/06/17 21:33 ([place] 5-325 Mg) 1 tab Q4H PRN PO 03/05/17 06:15 (Morphine Inj) 2 mg Q3H PRN IV 03/05/17 06:15 (Nitroglycerin 2% Oint) 0.5 inch Q6H PRN TOPICAL 03/05/17 06:15 (Cardizem Cd) 300 mg DAILY PO 03/05/17 09:00 03/06/17 08:57 (Lozol) 2.5 mg DAILY PO 03/05/17 09:00 03/06/17 08:58 (Cozaar) 100 mg DAILY PO 03/05/17 09:00 03/06/17 08:57 (Tapazole) 5 mg DAILY PO 03/05/17 09:00 03/06/17 08:56 (Lopressor) 12.5 mg BID PO 03/05/17 09:00 (Theragran) 1 tab DAILY PO 03/05/17 09:00 03/06/17 08:57 (Pill Splitter) 1 ea UNSCH PRN OTHER 03/05/17 06:45 (Aspirin Chew) 81 mg DAILY CHEW 03/06/17 09:00 03/06/17 08:58 (Heparin Inj) 5,000 units UNSCH PRN IV 03/05/17 18:00 Heparin Sodium (Porcine) 2500 units 2,500 units UNSCH PRN IV 03/05/17 18:00 03/06/17 18:41 (Heparin-D5W Inj) 250 ml @ 0 mls/hr TITRATE IV 03/05/17 12:00 03/06/17 13:06 (NS Flush) 2 ml BID IV FLUSH 03/05/17 21:00 03/06/17 21:04 (NS Flush) 2 ml UNSCH PRN IV FLUSH 03/05/17 13:45 (Lipitor) 80 mg HS PO 03/06/17 21:00 03/06/17 21:04 Vital Signs / I&O Vital Signs Date Time Temp Pulse Resp B/P Pulse Ox O2 Delivery O2 Flow Rate FiO2 03/07/17 06:00 46 03/07/17 05:00 50 03/07/17 04:00 64 03/07/17 03:00 98.4 50 16 131/60 97 03/07/17 03:00 44 03/07/17 02:00 44 03/07/17 01:00 46 03/07/17 00:00 46 03/06/17 23:00 42 03/06/17 23:00 98.5 48 16 129/66 95 03/06/17 23:00 16 03/06/17 22:00 46 03/06/17 21:00 48 03/06/17 20:00 52 03/06/17 19:00 64 03/06/17 19:00 98.2 53 16 135/56 100 03/06/17 18:16 55 03/06/17 17:00 54 03/06/17 16:07 50 03/06/17 15:20 97.9 50 141/59 99 03/06/17 15:00 47 03/06/17 14:00 50 03/06/17 13:00 54 03/06/17 12:00 52 03/06/17 11:00 98.3 56 19 137/62 97 03/06/17 11:00 47 03/06/17 10:07 64 03/06/17 09:22 59 03/06/17 08:00 54 I/O 03/06/17 03/06/17 03/06/17 03/07/17 03/07/17 03/07/17 07:00 15:00 23:00 07:00 15:00 23:00 Intake Total 385 ml 1060 ml 630 ml Output Total 640 ml 1000 ml 1125 ml Balance -255 ml 60 ml -495 ml Intake Oral 240 ml 920 ml 480 ml IV Total 145 ml 140 ml 150 ml Output Urine Total 640 ml 1000 ml 1125 ml Physical Exam GENERAL: Well developed, well nourished. No acute distress. HEENT: Jugular venous pressure is normal. CHEST: Lungs clear to auscultation bilaterally. Unlabored respiratory effort. CARDIAC: Regular rate and rhythm without S3, S4, or murmur. ABDOMEN: Soft, nontender, no hepatosplenomegaly. Bowel sounds present. EXTREMITIES: No clubbing, cyanosis, or edema. Right Rad site good, hand warm and pink Laboratory Laboratory Tests Test 03/06/17 03/06/17 03/07/17 03/07/17 11:45 17:49 00:25 06:10 Activated Partial 41.3 SEC 35.9 SEC 45.2 SEC 44.7 SEC Thromboplast Time Assessment and Plan Problem List: (1) CAD (coronary artery disease) Assessment and Plan: Severe multivessel CAD with progression of LAD bifurcation lesion with Diag, and ISR RCA stent stable and pain free Plavix stopped/ on heparin gtt scheduled for surgery on Sunday (2) Atrial fibrillation Assessment and Plan: luis a to 40's agree d/c metoprolol will notify Dr Chua in regards to consideration of LA Ligation and or MAZE with CABG (3) HTN (hypertension) (4) HLD (hyperlipidemia) (5) Angina pectoris Natalie Hamilton MD Mar 07, 2017 07:08
[2017-03-07] MEDS: LOSARTAN 50 MG TAB PO SCH (07:56)
[2017-03-07] MEDS: METHIMAZOLE 5 MG TAB PO SCH (07:56)
[2017-03-07] MEDS: MULTIVITAMIN TAB PO SCH (07:57)
[2017-03-07] MEDS: ASPIRIN 81 MG CHEW TAB CHEW SCH (07:57)
[2017-03-07] MEDS: INDAPAMIDE 2.5 MG TAB PO SCH (07:57)
[2017-03-07] MEDS: DILTIAZEM-CD 300 MG CAP ER PO SCH (07:57)
[2017-03-07] MEDS: SODIUM CHLORIDE 0.9% FLUSH 10 ML FLUSH IV FLUSH SCH ×2 (07:58→20:26)
[2017-03-07] MEDS: HEPARIN-D5W INJ 250 ML IV SCH (08:00)
[2017-03-07] MEDS: ACETAMINOPHEN 325 MG TAB PO PRN ×3 (08:09→20:19)
--- NOTE | 2017-03-07 13:31 | PD.CAR.PN ---
CVT Progress Note Subjective/Hospital Course: 76/ male HX CAD unstable angina , recent SARAH to ostial RCA in 11/10, did well initial 3 months then developed recurrent chest pain about 3 weeks ago , underwent nuclear stress testing 02/23 which showed anteroseptal ischemia . Underwent cardiac cath by Dr Nation 03/05 90% mid /distal LAD, 70% diagonal, RCA 95%, ramus 60% EF 55%, ECH showed mod AI pt had been on plavix at home, last dose 03/05/17 PMH : CAD, HTN, HLP Afib, skin cancer, hyperthyroidism 03/06 pt currently pain free, on Heparin gtt PRU 187 scheduled for surgery on Sunday on statin and ASA 03/07 doing well no complaints scheduled for surgery on Sunday Objective: GENERAL: SKIN: Warm and dry. HEAD: Normocephalic. EYES: No scleral icterus. No injection or drainage. NECK: Supple, trachea midline. No JVD or lymphadenopathy. CARDIOVASCULAR: Regular rate and rhythm without murmurs, gallops, or rubs. RESPIRATORY: Breath sounds equal bilaterally. No accessory muscle use. GASTROINTESTINAL: Abdomen soft, non-tender, nondistended. MUSCULOSKELETAL: No cyanosis, or edema. BACK: Nontender without obvious deformity. No CVA tenderness. Vital Signs Date Time Temp Pulse Resp B/P Pulse Ox O2 Delivery O2 Flow Rate FiO2 03/07/17 12:01 59 03/07/17 11:24 97.8 52 18 136/67 98 03/07/17 11:20 51 03/07/17 10:00 48 03/07/17 09:00 52 03/07/17 08:00 54 03/07/17 07:00 97.7 56 18 151/64 97 03/07/17 07:00 56 03/07/17 06:00 46 03/07/17 05:00 50 03/07/17 04:00 64 03/07/17 03:00 98.4 50 16 131/60 97 03/07/17 03:00 44 03/07/17 02:00 44 03/07/17 01:00 46 03/07/17 00:00 46 03/06/17 23:00 42 03/06/17 23:00 98.5 48 16 129/66 95 03/06/17 23:00 16 03/06/17 22:00 46 03/06/17 21:00 48 03/06/17 20:00 52 03/06/17 19:00 64 03/06/17 19:00 98.2 53 16 135/56 100 03/06/17 18:16 55 03/06/17 17:00 54 03/06/17 16:07 50 03/06/17 15:20 97.9 50 141/59 99 03/06/17 15:00 47 03/06/17 14:00 50 Labs: Laboratory Tests Test 03/07/17 06:10 Activated Partial 44.7 SEC Thromboplast Time (24.3-30.1) Result Diagram: 03/06/17 0423 03/06/17 0423 Telemetry: NSR (1) CAD (coronary artery disease) Plan: Severe multivessel CAD with progression of LAD bifurcation lesion with Diag, and ISR RCA stent stable and pain free Plavix stopped/ on heparin gtt scheduled for surgery on Sunday (2) Atrial fibrillation Plan: luis a to 40's agree d/c metoprolol will notify Dr Chua in regards to consideration of LA Ligation and or MAZE with CABG (3) HTN (hypertension) (4) HLD (hyperlipidemia) (5) Angina pectoris Shreya Franco Mar 07, 2017 13:31
--- NOTE | 2017-03-07 16:32 | HHI.PR ---
Subjective Remarks Follow-up for multivessel CAD. Patient is currently doing well. No chest pain , shortness of breath, fever or chills. CABG planned for 03/09/2017. Objective Vitals Vital Signs Date Time Temp Pulse Resp B/P Pulse Ox O2 Delivery O2 Flow Rate FiO2 03/07/17 16:21 50 03/07/17 15:44 97.9 50 18 109/49 100 03/07/17 15:00 56 03/07/17 14:24 53 03/07/17 13:37 62 03/07/17 12:01 59 03/07/17 11:24 97.8 52 18 136/67 98 03/07/17 11:20 51 03/07/17 10:00 48 03/07/17 09:00 52 03/07/17 08:00 54 03/07/17 07:00 97.7 56 18 151/64 97 03/07/17 07:00 56 03/07/17 06:00 46 03/07/17 05:00 50 03/07/17 04:00 64 03/07/17 03:00 98.4 50 16 131/60 97 03/07/17 03:00 44 03/07/17 02:00 44 03/07/17 01:00 46 03/07/17 00:00 46 03/06/17 23:00 42 03/06/17 23:00 98.5 48 16 129/66 95 03/06/17 23:00 16 03/06/17 22:00 46 03/06/17 21:00 48 03/06/17 20:00 52 03/06/17 19:00 64 03/06/17 19:00 98.2 53 16 135/56 100 03/06/17 18:16 55 03/06/17 17:00 54 I/O 03/06/17 03/06/17 03/06/17 03/07/17 03/07/17 03/07/17 07:00 15:00 23:00 07:00 15:00 23:00 Intake Total 385 ml 1060 ml 630 ml Output Total 640 ml 1000 ml 1125 ml Balance -255 ml 60 ml -495 ml Intake Oral 240 ml 920 ml 480 ml IV Total 145 ml 140 ml 150 ml Output Urine Total 640 ml 1000 ml 1125 ml Result Diagram: 03/06/17 0423 03/06/17 0423 Imaging Last Impressions Chest X-Ray 03/05/17 0453 Signed Impressions: Service Date/Time: Sunday, March 05, 2017 04:59 - CONCLUSION: No acute disease. Bentley Mendez MD Lower Extremity Ultrasound 03/05/17 0000 Signed Impressions: Service Date/Time: Sunday, March 05, 2017 16:53 - CONCLUSION: Venous mapping as described above Ilia Robison MD FACR Carotid Artery Ultrasound 03/05/17 0000 Signed Impressions: Service Date/Time: Sunday, March 05, 2017 16:33 - CONCLUSION: Negative examination for a hemodynamically significant carotid stenosis. Ilia Robison MD Objective Remarks GENERAL: AOX3, NAD. SKIN: Warm and dry. HEAD: Normocephalic. EYES: No scleral icterus. No injection or drainage. NECK: Supple, trachea midline. No JVD or lymphadenopathy. CARDIOVASCULAR: Regular rate and rhythm without murmurs, gallops, or rubs. RESPIRATORY: Breath sounds equal bilaterally. No accessory muscle use. GASTROINTESTINAL: Abdomen soft, non-tender, nondistended. MUSCULOSKELETAL: No cyanosis, or edema. BACK: Nontender without obvious deformity. No CVA tenderness. Procedures Cardiac catheterization 03/05/2017 IMPRESSIONS 1. Multivessel coronary artery disease with significant stenosis of the ostial RCA, LAD diagonal bifurcation. 2. Chest pain, failing outpatient antianginal medications. 3. Recent drug-eluting stent placed in the ostium of the RCA with restenosis. RECOMMENDATIONS 1. Mr. Melchor appears to have multivessel coronary artery disease and the recommendation would be for CT Surgery evaluation. 2. I reviewed the films with Dr. Chua and plan would be for bypass of the RCA, LAD and diagonal with a consideration of the ramus. 3. We will obtain a 2-D echo to look at his overall left ventricular function, cardiac structure and possible valvopathies. 4. In anticipation of CT surgery, we will stop his Plavix. My concern is that he recently had a stent placed within the past 3 months and so he will be placed on a heparin drip 1 hour after the TR band is removed. 5. Further recommendations will be made based on the patient's hospital course. A/P Problem List: (1) Chest pain ICD Code: R07.9 Status: Acute (2) CAD (coronary artery disease) ICD Code: I25.10 Status: Acute (3) Hyperthyroidism ICD Code: E05.90 Status: Acute (4) HTN (hypertension) ICD Code: I10 Status: Chronic (5) HLD (hyperlipidemia) ICD Code: E78.5 Status: Chronic Assessment and Plan Mr. Melchor is a 76-year-old male with a past medical history of hypertension, hyperlipidemia, atrial fibrillation, CAD with ostial RCA stenting on Plavix and aspirin, diverticulitis, skin cancer and hyperthyroidism who presented to the ED on 03/05/2017 due to exertional chest pain. Patient was evaluated by cardiology and underwent LHC on 03/05/2017 which showed multivessel CAD. CABG was recommended. - Chest pain with failed outpatient therapy. - Multivessel Coronary artery disease on left heart cath on 03/05/2017. - Hypertension - Hyperlipidemia - s/p LHC on 03/05/2017 --> Multivessel CAD with significant stenosis of the ostial RCA, LAD diagonal bifurcation. - Failed outpatient anti-anginal medications. Patient cannot tolerate long acting nitrates. - CT surgery consulted for possible bypass of RCA, LAD and diagonal with a consideration of the ramus. - 2D echo shows EF 55-60%, Moderate AR with valve area 2.47 cm^2. - Plan for CABG on Sunday03/09/2017. - Continue Aspirin 81mg Qday, Losartan 100mg Qday, Lipitor 80 mg Qhs. - Plavix on hold. Continue Heparin gtt. - Atrial fibrillation - Was on Apixaban but it was discontinued. - [id number] score 2 (age, HTN). Defer decision to initiate anti- coagulation to cardiology. May benefit from Apixaban. - Cardizem 300mg PO Qday started on 03/05/2017. Reduce to 120mg Qday. HOLD if Heart rate < 85. - Hyperthyroidism: Continue methimazole 5mg Qday. Full code. Heparin gtt. Kp Morales DO Mar 07, 2017 4:32 pm
[2017-03-07] MEDS: ATORVASTATIN 80 MG TAB PO SCH (20:18)
[2017-03-08] VITALS (24 sets, daily range): BP systolic 120–143; BP diastolic 59–68; PULSE 46–82; RESP 14–20; TEMP 98.3–98.8; O2SAT 94–100
[2017-03-08 05:17] LABS: HEMATOCRIT 40.1 % (39.0-51.0); MEAN CORPUSCULAR HEMOGLOBIN 30.7 PG (27.0-34.0); MEAN CORPUSCULAR HGB CONC 33.3 % (32.0-36.0); PLATELET COUNT 149 TH/MM3 (150-450); RED BLOOD COUNT 4.36 MIL/MM3 (4.50-5.90); REVIEW FLAG FINAL; WHITE BLOOD COUNT 6.4 TH/MM3 (4.0-11.0)
[2017-03-08 05:22] LABS: APTT (PATIENT) 43.5 SEC (24.3-30.1); PROTHROMBIN TIME - PATIENT 11.6 SEC (9.8-11.6)
--- NOTE | 2017-03-08 08:09 | PD.CARD.PN ---
Subjective Subjective Remarks Pt without complaints Objective Medications Current Medications Medications (Trade) Dose Ordered Sig/[place] Route Start Time Stop Time Status Last Admin (Zofran Inj) 4 mg Q6H PRN IVP 03/05/17 06:15 (Dulcolax Supp) 10 mg DAILY PRN RECTAL 03/05/17 06:15 (Tylenol) 650 mg Q6H PRN PO 03/05/17 06:15 03/07/17 20:19 ([place] 5-325 Mg) 1 tab Q4H PRN PO 03/05/17 06:15 (Morphine Inj) 2 mg Q3H PRN IV 03/05/17 06:15 (Nitroglycerin 2% Oint) 0.5 inch Q6H PRN TOPICAL 03/05/17 06:15 (Lozol) 2.5 mg DAILY PO 03/05/17 09:00 03/07/17 07:57 (Cozaar) 100 mg DAILY PO 03/05/17 09:00 03/07/17 07:56 (Tapazole) 5 mg DAILY PO 03/05/17 09:00 03/07/17 07:56 (Theragran) 1 tab DAILY PO 03/05/17 09:00 03/07/17 07:57 (Pill Splitter) 1 ea UNSCH PRN OTHER 03/05/17 06:45 (Aspirin Chew) 81 mg DAILY CHEW 03/06/17 09:00 03/07/17 07:57 (Heparin Inj) 5,000 units UNSCH PRN IV 03/05/17 18:00 Heparin Sodium (Porcine) 2500 units 2,500 units UNSCH PRN IV 03/05/17 18:00 03/06/17 18:41 (Heparin-D5W Inj) 250 ml @ 0 mls/hr TITRATE IV 03/05/17 12:00 03/07/17 08:00 (NS Flush) 2 ml BID IV FLUSH 03/05/17 21:00 03/07/17 20:26 (NS Flush) 2 ml UNSCH PRN IV FLUSH 03/05/17 13:45 (Lipitor) 80 mg HS PO 03/06/17 21:00 03/07/17 20:18 (Cardizem Cd) 120 mg DAILY PO 03/08/17 09:00 Vital Signs / I&O Vital Signs Date Time Temp Pulse Resp B/P Pulse Ox O2 Delivery O2 Flow Rate FiO2 03/08/17 05:00 48 03/08/17 04:55 98.6 58 18 131/59 100 03/08/17 04:00 48 03/08/17 03:00 50 03/08/17 02:00 48 03/08/17 01:00 46 03/08/17 00:00 46 03/07/17 23:40 98.2 47 18 104/52 100 03/07/17 23:00 46 03/07/17 22:00 48 03/07/17 21:00 48 03/07/17 20:10 98.2 50 18 158/66 100 03/07/17 20:00 52 03/07/17 19:00 52 03/07/17 18:30 50 03/07/17 17:20 53 03/07/17 16:21 50 03/07/17 15:44 97.9 50 18 109/49 100 03/07/17 15:00 56 03/07/17 14:24 53 03/07/17 13:37 62 03/07/17 12:01 59 03/07/17 11:24 97.8 52 18 136/67 98 03/07/17 11:20 51 03/07/17 10:00 48 03/07/17 09:00 52 I/O 03/07/17 03/07/17 03/07/17 03/08/17 03/08/17 03/08/17 07:00 15:00 23:00 07:00 15:00 23:00 Intake Total 630 ml 1060 ml 480 ml Output Total 1125 ml 750 ml Balance -495 ml 310 ml 480 ml Intake Oral 480 ml 920 ml 480 ml IV Total 150 ml 140 ml Output Urine Total 1125 ml 750 ml # Voids 2 # Bowel Movements 1 Physical Exam GENERAL: Well developed, well nourished. No acute distress. HEENT: Jugular venous pressure is normal. CHEST: Lungs clear to auscultation bilaterally. Unlabored respiratory effort. CARDIAC: Regular rate and rhythm without S3, S4, or murmur. ABDOMEN: Soft, nontender, no hepatosplenomegaly. Bowel sounds present. EXTREMITIES: No clubbing, cyanosis, or edema. Right Rad site good, hand warm and pink Laboratory Laboratory Tests Test 03/08/17 04:46 White Blood Count 6.4 TH/MM3 Red Blood Count 4.36 MIL/MM3 Hemoglobin 13.4 GM/DL Hematocrit 40.1 % Mean Corpuscular Volume 92.0 FL Mean Corpuscular Hemoglobin 30.7 PG Mean Corpuscular Hemoglobin 33.3 % Concent Red Cell Distribution Width 15.0 % Platelet Count 149 TH/MM3 Mean Platelet Volume 8.6 FL Prothrombin Time 11.6 SEC Prothromb Time International 1.0 RATIO Ratio Activated Partial 43.5 SEC Thromboplast Time Blood Type AB POSITIVE Blood Bank Comment Assessment and Plan Problem List: (1) CAD (coronary artery disease) Assessment and Plan: Severe multivessel CAD with progression of LAD bifurcation lesion with Diag, and ISR RCA stent stable and pain free Plavix stopped/ on heparin gtt scheduled for surgery in am (2) Atrial fibrillation Assessment and Plan: luis a to 40's decrease cardizem anticipate LA Ligation and modified MAZE with CABG (3) HTN (hypertension) (4) HLD (hyperlipidemia) (5) Angina pectoris Natalie Hamilton MD Mar 08, 2017 08:09
[2017-03-08] MEDS: LOSARTAN 50 MG TAB PO SCH (08:54)
[2017-03-08] MEDS: MULTIVITAMIN TAB PO SCH (08:54)
[2017-03-08] MEDS: ACETAMINOPHEN 325 MG TAB PO PRN ×2 (08:54→21:26)
[2017-03-08] MEDS: METHIMAZOLE 5 MG TAB PO SCH (08:54)
[2017-03-08] MEDS: INDAPAMIDE 2.5 MG TAB PO SCH (08:55)
[2017-03-08] MEDS: ASPIRIN 81 MG CHEW TAB CHEW SCH (08:55)
[2017-03-08] MEDS: SODIUM CHLORIDE 0.9% FLUSH 10 ML FLUSH IV FLUSH SCH ×2 (08:56→21:00)
[2017-03-08] MEDS: DILTIAZEM-CD 120 MG CAP ER PO SCH (08:59)
--- NOTE | 2017-03-08 11:41 | PD.CAR.PN ---
CVT Progress Note Subjective/Hospital Course: 76/ male HX CAD unstable angina , recent SARAH to ostial RCA in 11/10, did well initial 3 months then developed recurrent chest pain about 3 weeks ago , underwent nuclear stress testing 02/23 which showed anteroseptal ischemia . Underwent cardiac cath by Dr Nation 03/05 90% mid /distal LAD, 70% diagonal, RCA 95%, ramus 60% EF 55%, ECH showed mod AI pt had been on plavix at home, last dose 03/05/17 PMH : CAD, HTN, HLP Afib, skin cancer, hyperthyroidism 03/06 pt currently pain free, on Heparin gtt PRU 187 scheduled for surgery on Sunday on statin and ASA 03/07 doing well no complaints scheduled for surgery on Thursday 03/08 stable for surgery tomorrow on room air, no chest pain Objective: GENERAL: SKIN: Warm and dry. HEAD: Normocephalic. EYES: No scleral icterus. No injection or drainage. NECK: Supple, trachea midline. No JVD or lymphadenopathy. CARDIOVASCULAR: Regular rate and rhythm without murmurs, gallops, or rubs. RESPIRATORY: Breath sounds equal bilaterally. No accessory muscle use. GASTROINTESTINAL: Abdomen soft, non-tender, nondistended. MUSCULOSKELETAL: No cyanosis, or edema. BACK: Nontender without obvious deformity. No CVA tenderness. Vital Signs Date Time Temp Pulse Resp B/P Pulse Ox O2 Delivery O2 Flow Rate FiO2 03/08/17 10:00 56 03/08/17 09:00 60 03/08/17 08:00 63 03/08/17 07:00 51 03/08/17 07:00 98.6 60 20 135/67 95 03/08/17 05:00 48 03/08/17 04:55 98.6 58 18 131/59 100 03/08/17 04:00 48 03/08/17 03:00 50 03/08/17 02:00 48 03/08/17 01:00 46 03/08/17 00:00 46 03/07/17 23:40 98.2 47 18 104/52 100 03/07/17 23:00 46 03/07/17 22:00 48 03/07/17 21:00 48 03/07/17 20:10 98.2 50 18 158/66 100 03/07/17 20:00 52 03/07/17 19:00 52 03/07/17 18:30 50 03/07/17 17:20 53 03/07/17 16:21 50 03/07/17 15:44 97.9 50 18 109/49 100 03/07/17 15:00 56 03/07/17 14:24 53 03/07/17 13:37 62 03/07/17 12:01 59 Labs: Laboratory Tests Test 03/08/17 03/08/17 04:46 05:59 White Blood Count 6.4 TH/MM3 (4.0-11.0) Red Blood Count 4.36 MIL/MM3 (4.50-5.90) Hemoglobin 13.4 GM/DL (13.0-17.0) Hematocrit 40.1 % (39.0-51.0) Mean Corpuscular Volume 92.0 FL (80.0-100.0) Mean Corpuscular Hemoglobin 30.7 PG (27.0-34.0) Mean Corpuscular Hemoglobin 33.3 % Concent (32.0-36.0) Red Cell Distribution Width 15.0 % (11.6-17.2) Platelet Count 149 TH/MM3 (150-450) Mean Platelet Volume 8.6 FL (7.0-11.0) Prothrombin Time 11.6 SEC (9.8-11.6) Prothromb Time International 1.0 RATIO Ratio Activated Partial 43.5 SEC Thromboplast Time (24.3-30.1) Blood Type AB POSITIVE AB POSITIVE Antibody Screen NEGATIVE Crossmatch Leukocyte-Reduced Red Blood Cells Blood Bank Comment Result Diagram: 03/08/17 0446 03/06/17 0423 Telemetry: NSR (1) CAD (coronary artery disease) Plan: Severe multivessel CAD with progression of LAD bifurcation lesion with Diag, and ISR RCA stent stable and pain free Plavix stopped/ on heparin gtt scheduled for surgery in am (2) Atrial fibrillation Plan: luis a to 40's decrease cardizem anticipate LA Ligation and modified MAZE with CABG (3) HTN (hypertension) (4) HLD (hyperlipidemia) (5) Angina pectoris Shreya Franco Mar 08, 2017 11:41
--- NOTE | 2017-03-08 15:02 | HHI.PR ---
Subjective Remarks Follow up for multivessel CAD. Patient is doing well. Denies any chest pain, shortness of breath, fever, chills. CABG in the AM. Objective Vitals Vital Signs Date Time Temp Pulse Resp B/P Pulse Ox O2 Delivery O2 Flow Rate FiO2 03/08/17 14:00 65 03/08/17 13:00 62 03/08/17 12:00 61 03/08/17 11:00 64 03/08/17 11:00 98.7 59 20 120/68 97 03/08/17 10:00 56 03/08/17 09:00 60 03/08/17 08:00 63 03/08/17 07:00 51 03/08/17 07:00 98.6 60 20 135/67 95 03/08/17 05:00 48 03/08/17 04:55 98.6 58 18 131/59 100 03/08/17 04:00 48 03/08/17 03:00 50 03/08/17 02:00 48 03/08/17 01:00 46 03/08/17 00:00 46 03/07/17 23:40 98.2 47 18 104/52 100 03/07/17 23:00 46 03/07/17 22:00 48 03/07/17 21:00 48 03/07/17 20:10 98.2 50 18 158/66 100 03/07/17 20:00 52 03/07/17 19:00 52 03/07/17 18:30 50 03/07/17 17:20 53 03/07/17 16:21 50 03/07/17 15:44 97.9 50 18 109/49 100 I/O 03/07/17 03/07/17 03/07/17 03/08/17 03/08/17 03/08/17 06:59 14:59 22:59 06:59 14:59 22:59 Intake Total 630 ml 1060 ml 480 ml Output Total 1125 ml 750 ml Balance -495 ml 310 ml 480 ml Intake Oral 480 ml 920 ml 480 ml IV Total 150 ml 140 ml Output Urine Total 1125 ml 750 ml # Voids 2 # Bowel Movements 1 Result Diagram: 03/08/17 0446 03/06/17 0423 Imaging Last Impressions Chest X-Ray 03/05/17 5023 Signed Impressions: Service Date/Time: Sunday, March 05, 2017 04:59 - CONCLUSION: No acute disease. Bentley Mendez MD Lower Extremity Ultrasound 03/05/17 0000 Signed Impressions: Service Date/Time: Sunday, March 05, 2017 16:53 - CONCLUSION: Venous mapping as described above Ilia Robison MD FACR Carotid Artery Ultrasound 03/05/17 0000 Signed Impressions: Service Date/Time: Sunday, March 05, 2017 16:33 - CONCLUSION: Negative examination for a hemodynamically significant carotid stenosis. Ilia Robison MD Objective Remarks GENERAL: AOX3, NAD. SKIN: Warm and dry. HEAD: Normocephalic. EYES: No scleral icterus. No injection or drainage. NECK: Supple, trachea midline. No JVD or lymphadenopathy. CARDIOVASCULAR: Regular rate and rhythm without murmurs, gallops, or rubs. RESPIRATORY: Breath sounds equal bilaterally. No accessory muscle use. GASTROINTESTINAL: Abdomen soft, non-tender, nondistended. MUSCULOSKELETAL: No cyanosis, or edema. BACK: Nontender without obvious deformity. No CVA tenderness. Procedures Cardiac catheterization 03/05/2017 IMPRESSIONS 1. Multivessel coronary artery disease with significant stenosis of the ostial RCA, LAD diagonal bifurcation. 2. Chest pain, failing outpatient antianginal medications. 3. Recent drug-eluting stent placed in the ostium of the RCA with restenosis. RECOMMENDATIONS 1. Mr. Melchor appears to have multivessel coronary artery disease and the recommendation would be for CT Surgery evaluation. 2. I reviewed the films with Dr. Chua and plan would be for bypass of the RCA, LAD and diagonal with a consideration of the ramus. 3. We will obtain a 2-D echo to look at his overall left ventricular function, cardiac structure and possible valvopathies. 4. In anticipation of CT surgery, we will stop his Plavix. My concern is that he recently had a stent placed within the past 3 months and so he will be placed on a heparin drip 1 hour after the TR band is removed. 5. Further recommendations will be made based on the patient's hospital course. A/P Problem List: (1) Chest pain ICD Code: R07.9 Status: Acute (2) CAD (coronary artery disease) ICD Code: I25.10 Status: Acute (3) Hyperthyroidism ICD Code: E05.90 Status: Acute (4) HTN (hypertension) ICD Code: I10 Status: Chronic (5) HLD (hyperlipidemia) ICD Code: E78.5 Status: Chronic Assessment and Plan Mr. Melchor is a 76-year-old male with a past medical history of hypertension, hyperlipidemia, atrial fibrillation, CAD with ostial RCA stenting on Plavix and aspirin, diverticulitis, skin cancer and hyperthyroidism who presented to the ED on 03/05/2017 due to exertional chest pain. Patient was evaluated by cardiology and underwent LHC on 03/05/2017 which showed multivessel CAD. CABG was recommended. - Chest pain with failed outpatient therapy. - Multivessel Coronary artery disease on left heart cath on 03/05/2017. - Hypertension - Hyperlipidemia - s/p LHC on 03/05/2017 --> Multivessel CAD with significant stenosis of the ostial RCA, LAD diagonal bifurcation. - Failed outpatient anti-anginal medications. Patient cannot tolerate long acting nitrates. - CT surgery consulted for possible bypass of RCA, LAD and diagonal with a consideration of the ramus. - 2D echo shows EF 55-60%, Moderate AR with valve area 2.47 cm^2. - Plan for CABG on Sunday03/09/2017. - Continue Aspirin 81mg Qday, Losartan 100mg Qday, Lipitor 80 mg Qhs. - Plavix on hold. Continue Heparin gtt. - Atrial fibrillation - Was on Apixaban but it was discontinued. - [id number] score 2 (age, HTN). Defer decision to initiate anti- coagulation to cardiology. May benefit from Apixaban. - Cardizem 300mg PO Qday started on 03/05/2017. Reduced to 120mg Qday. HOLD if Heart rate < 85. - Hyperthyroidism: Continue methimazole 5mg Qday. Full code. Heparin gtt. Kp Morales DO Mar 08, 2017 15:02
[2017-03-08 16:33] LABS: HEMOGLOBIN A1a 1.1 %; HEMOGLOBIN A1b 0.8 %; HEMOGLOBIN Ao 84.8 %; HEMOGLOBIN F 1.5 %; HEMOGLOBIN LA1C 1.8 %; HEMOGLOBIN P3 3.9 %
[2017-03-08] MEDS: ATORVASTATIN 80 MG TAB PO SCH (21:26)
[2017-03-08] MEDS: HEPARIN-D5W INJ 250 ML IV SCH (22:09)
[2017-03-09] VITALS (23 sets, daily range): BP systolic 70–143; BP diastolic 42–73; PULSE 52–129; RESP 18–19; TEMP 98–98.4; O2SAT 95–98
[2017-03-09] MEDS ORDERED: VECURONIUM BROMIDE 10 MG VIAL IV ONE (05:00)
[2017-03-09] MEDS ORDERED: HEPARIN SODIUM - SQ 10,000 UNITS/ML VIAL SQ ONE (05:00)
[2017-03-09] MEDS ORDERED: EPINEPHrine HCL (1:1000) 1 MG/ML VIAL IV ONE (05:00)
[2017-03-09] MEDS ORDERED: MAGNESIUM SULFATE 1000 MG/2 ML VIAL (PED) IV ONE (05:00)
[2017-03-09] MEDS ORDERED: CALCIUM CHLORIDE 10% SOLN 1 GRAM/10 ML SYR IV ONE (05:00)
[2017-03-09] MEDS ORDERED: AMINOCAPROIC ACID INJ 250 MG/ML 20 ML VIAL IV ONE (05:00)
[2017-03-09] MEDS ORDERED: PROTAMINE SULFATE 250 MG/25 ML VIAL IV ONE (05:00)
[2017-03-09] MEDS ORDERED: HEPARIN SODIUM - IV 10,000 UNITS/10 ML VIAL ONE ×2 (06:30→11:58)
[2017-03-09] MEDS ORDERED: VANCOMYCIN HCL 1000 MG VIAL ONE (06:31)
[2017-03-09] MEDS ORDERED: ceFAZolin 2 GM PREMIX 50 ML ONE (06:31)
[2017-03-09] MEDS ORDERED: HEPARIN SODIUM - SQ 10,000 UNITS/ML VIAL ONE (06:32)
[2017-03-09] MEDS ORDERED: fentaNYL CITRATE 1000 MCG/20 ML VIAL ONE ×2 (06:55→12:52)
[2017-03-09] MEDS ORDERED: MIDAZOLAM HCL 5 MG/5 ML VIAL ONE ×2 (06:55→12:53)
[2017-03-09] MEDS: DILTIAZEM-CD 120 MG CAP ER PO SCH (09:00)
[2017-03-09] MEDS: INDAPAMIDE 2.5 MG TAB PO SCH (09:00)
[2017-03-09] MEDS: SODIUM CHLORIDE 0.9% FLUSH 10 ML FLUSH IV FLUSH SCH ×2 (09:00→21:30)
[2017-03-09] MEDS: MULTIVITAMIN TAB PO SCH (09:00)
[2017-03-09] MEDS: METHIMAZOLE 5 MG TAB PO SCH (09:00)
[2017-03-09] MEDS: LOSARTAN 50 MG TAB PO SCH (09:00)
[2017-03-09] MEDS ORDERED: LACTATED RINGER'S 1000 ML INJ 500 ML IV PRN (11:49)
[2017-03-09] MEDS ORDERED: CALCIUM CHLORIDE 10% 1 GRAM/10 ML VIAL IV PRN (12:00)
[2017-03-09] MEDS ORDERED: MAGNESIUM SULFATE INJ 2 GM in SODIUM CHLORIDE 0.9% INJ 100 ML IV PRN ×4 (12:00)
[2017-03-09] MEDS ORDERED: CALCIUM CHLORIDE INJ 1 GM in SODIUM CHLORIDE 0.9% INJ 100 ML IV PRN (12:00)
[2017-03-09] MEDS ORDERED: NITROGLYCERIN-DEXTROSE INJ 250 ML IV SCH (12:00)
[2017-03-09] MEDS ORDERED: Post-op Orders (for Pharmacy) MISC OTHER ONE (12:00)
[2017-03-09] MEDS ORDERED: DEXMEDETOMIDINE INJ 200 MCG in SODIUM CHLORIDE 0.9% INJ 50 ML IV SCH (12:00)
[2017-03-09] MEDS ORDERED: MORPHINE SULFATE 4 MG/ML INJ IV PRN (12:00)
[2017-03-09] MEDS ORDERED: DOPamine INJ PREMIX 500 ML IV SCH (12:00)
[2017-03-09] MEDS ORDERED: CLEVIDIPINE INJ 50 ML IV SCH (12:00)
[2017-03-09] MEDS ORDERED: POTASSIUM CHLORIDE 20 MEQ CONTROLLED RELEASE TAB PO PRN ×2 (12:00)
[2017-03-09] MEDS ORDERED: ONDANSETRON HCL 4 MG/2 ML VIAL IV PUSH PRN (12:00)
[2017-03-09] MEDS ORDERED: PHENYLEPHRINE INJ 40 MG in DEXTROSE 5% IN WATE 500 ML INJ 496 ML IV SCH ×2 (12:00)
[2017-03-09] MEDS ORDERED: ACETAMINOPHEN 650 MG SUPP RECTAL PRN (12:00)
[2017-03-09] MEDS ORDERED: MEPERIDINE HCL 25 MG/ML VIAL IV PRN (12:00)
[2017-03-09] MEDS: ACETAMINOPHEN 1000 MG/100 ML VIAL IV SCH ×2 (12:00→18:28)
[2017-03-09] MEDS ORDERED: EPINEPHrine (1:1000) INJ 4 MG in DEXTROSE 5% IN WATER INJ 246 ML IV SCH ×2 (12:00)
[2017-03-09] MEDS ORDERED: POTASSIUM CHLOR 20 MEQ PREMIX 100 ML IV PRN ×2 (12:00)
[2017-03-09] MEDS ORDERED: hydrALAZINE HCL 20 MG/ML VIAL IV PRN (12:00)
[2017-03-09] MEDS ORDERED: DEXTROSE 50% IN WATER 50 ML VIAL(D50) IV PUSH PRN (12:00)
[2017-03-09] MEDS ORDERED: PROPOFOL 200 MG/20 ML AMP IV ONE (12:01)
[2017-03-09] MEDS ORDERED: LACTATED RINGER'S 1000 ML INJ 1,000 ML IV ONE (12:02)
[2017-03-09] MEDS ORDERED: NORMOSOL R INJ 4,000 ML IV ONE (12:02)
[2017-03-09] MEDS ORDERED: POTASSIUM CHLOR 40 MEQ PREMIX 100 ML ONE (12:11)
[2017-03-09] MEDS ORDERED: DOBUTamine PREMIX DRIP 250 ML IV SCH (12:30)
[2017-03-09] MEDS ORDERED: RESP: RACEPINEPHRINE 2.25% 0.5 ML NEB NEB PRN (13:00)
[2017-03-09] MEDS ORDERED: INSULIN REGULAR (IV INFUSION) 100 UNITS in SODIUM CHLORIDE 0.9% INJ 99 ML IV SCH (13:00)
[2017-03-09] MEDS ORDERED: RESP: ALBUTEROL 2.5 MG/IPRATROPIUM 0.5 MG NEB (PRN) NEB (13:00)
[2017-03-09] MEDS ORDERED: DIGOXIN 0.5 MG/2 ML VIAL ONE (13:27)
[2017-03-09] MEDS: ALBUMIN HUMAN 5% 12.5 GM/250 ML BOTTLE IV PRN (13:29)
--- NOTE | 2017-03-09 13:30 | RADRPT ---
EXAM DATE/TIME: 03/09/2017 13:53 [facility] COMPARISON: CHEST SINGLE AP, March 05, 2017, 4:59. INDICATIONS : Post CABG. MEDICAL HISTORY : CAD. Afib. Hyperlipidemia. Hypertension. Hyperthyroid. Myocardiac infarct. SURGICAL HISTORY : Cardiac stent. Cardiac catheterization. ENCOUNTER: Initial ACUITY: 1 day PAIN SCORE: 2/10 LOCATION: Bilateral chest FINDINGS: Endotracheal tube tip at the level of the clavicles. Sternotomy wires noted. NG tube in satisfactory position. Left-sided chest tube is present as well as mediastinal tube. Right jugular line tip overli es expected location of the SVC. There is abnormal consolidation in the right upper lobe. Cardiomegal y. CONCLUSION: Postoperative changes with right upper lobe consolidation suspected. Emmanuel Nuñez MD on March 09, 2017 at 13:28 Board Certified Radiologist. This report was verified electronically.
[2017-03-09] MEDS: KETOROLAC TROMETHAMINE 30 MG/ML (IVP) VIAL IV PUSH PRN (13:41)
[2017-03-09] MEDS ORDERED: PHENYLEPHRINE HCL 10 MG/ML VIAL ONE (13:54)
--- NOTE | 2017-03-09 14:01 | PD.OP ---
cc: Natalie Hamilton MD; Stefan Chua MD; Luis Nation DO Operative Report Date of Surgery: Mar 09, 2017 Preoperative Diagnosis: Postoperative Diagnosis: Procedure: 1. Urgent Off-pump Coronary Artery Bypass Grafting x 3 with left internal mammary artery (SOLIS) to left anterior descending (LAD), reverse saphenous vein graft to Diagonal 1, reverse saphenous vein graft to the RCA 2. Left Atrial Appendage Excision 3. Modified MAZE IV 4. Left Leg Endoscopic Vein [place] 5. Intraoperative Vein Mapping. . Surgeon: Stefan Chua Etcher Enameling(s): Gabriel Marte Operation and Findings: PREPROCEDURE DIAGNOSES 1. Severe Two Vessel Coronary Artery Disease. 2. Atrial Fibrillation 3. In-stent Restenosis POSTPROCEDURE DIAGNOSES Same SURGICAL PROCEDURE 1. Urgent Off-pump Coronary Artery Bypass Grafting x 3 with left internal mammary artery (SOLIS) to left anterior descending (LAD), reverse saphenous vein graft to Diagonal 1, reverse saphenous vein graft to the RCA 2. Left Atrial Appendage Excision 3. Modified MAZE IV 4. Left Leg Endoscopic Vein [place] 5. Intraoperative Vein Mapping. SURGEON Stefan Chua MD PREASSEMBLER AND INSPECTOR Tha Morrison, [facility] ANESTHESIA General endotracheal NURSES SUPERINTENDENT Milla Oliveira, DANIAL Swanson, SHIPPING RECEIVING MANAGER Mainor Garner MD PREPARATION ChloraPrep. COUNTS Needle, sponge, and instrument counts were correct. DRAINS Two 32-[place] mediastinal tubes. COMPLICATIONS None. INDICATIONS FOR PROCEDURE The patient is a 76-year-old presenting with chest pain. Patient was noted to have 2-vessel coronary artery disease. The patient is being brought to the operating room for surgical revascularization therapy. PROCEDURE Patient was brought to the operating room and placed supine on the OR table. Following the induction of adequate general endotracheal anesthesia and placement of appropriate monitoring devices, intraoperative vein mapping was performed which revealed -caliber conduit in bilateral lower extremities. The patient was then prepped and draped in standard sterile fashion. Next, 2500 units of intravenous heparin was given. The left greater saphenous vein was harvested endoscopically. This appeared to be a useable-caliber conduit. Simultaneously, a median sternotomy was performed and the left internal mammary artery dissected free off the posterior sternal table. The patient was systemically heparinized and anticoagulation monitored by serial ACT measurements. The internal mammary artery had excellent pulsatile flow in it and was a good-caliber conduit. The pericardium was then divided in the midline , the cradle created and targets analyzed. At this point, all anastomoses were performed in a beating-heart fashion using the Maquet stabilizing system. The left internal mammary artery was anastomosed to the mid LAD in an end-to-side fashion using 7-0 Prolene. Segment of saphenous vein graft was then anastomosed to the diagonal 1 in an end-to-side fashion using 7-0 Prolene. The final segment was anastomosed to the RCA in an end-to-side fashion using 7-0 Prolene. The proximal anastomoses were then constructed to the ascending aorta in a running manner using 6-0 Prolene. All anastomotic sites were inspected and appeared to be hemostatic and patent. The left atrial appendage was next excised using the TOSHIA stapling device. Modified MAZE procedure was done with the Atricure radiofrequency clamp. Protamine solution was given. Strict hemostasis was assured. At this point the patient was noted to have reverted back to the atrial fibrillation rhythm with RVR of 114. Synchronized cardioversion was performed on two different occasions in addition to loading with IV Amiodarone, however, the patient returned back to the a-fib rhythm. The closure was undertaken. 2 chest tubes were placed. The pericardium was reapproximated in the midline. The sternum was approximated using sternal wires. The muscular and fascial layer were then closed in 3 layers. The endoscopic vein harvest site was closed in 2 layers. The patient tolerated the procedure well and was transferred to CVICU in stable condition. Stefan Chua MD Mar 09, 2017 14:01
[2017-03-09] MEDS ORDERED: DIGOXIN 0.5 MG/2 ML VIAL IV PUSH SCH ×2 (14:45→18:00)
--- NOTE | 2017-03-09 15:26 | HHI.PR ---
Subjective Remarks f/u on chest pain s/p CABG today, no chest pain but with anterior chest pain with deep breathing, no N/V Objective Vitals Vital Signs Date Time Temp Pulse Resp B/P Pulse Ox O2 Delivery O2 Flow Rate FiO2 03/09/17 15:03 98.4 71 19 95/54 98 105/50 03/09/17 15:02 71 03/09/17 14:06 98.4 03/09/17 14:02 129 03/09/17 13:52 17 03/09/17 13:39 98.4 113 19 104/58 97 70/45 03/09/17 13:15 97 Nasal Cannula 5.00 03/09/17 13:15 97 Nasal Cannula 5 03/09/17 13:09 95 03/09/17 12:58 50 03/09/17 12:57 99 Mechanical Ventilator 50 03/09/17 12:54 122 03/09/17 12:35 95 50 03/09/17 06:00 62 03/09/17 05:00 60 03/09/17 04:00 54 03/09/17 03:00 98.0 59 18 143/73 95 03/09/17 03:00 60 03/09/17 02:00 58 03/09/17 01:00 52 03/09/17 00:00 54 03/08/17 23:00 98.5 60 14 129/66 94 03/08/17 23:00 61 03/08/17 22:00 66 03/08/17 21:00 72 03/08/17 20:00 82 03/08/17 19:00 79 03/08/17 19:00 98.8 70 20 143/64 95 03/08/17 18:00 69 03/08/17 17:00 67 03/08/17 16:00 78 I/O 03/08/17 03/08/17 03/08/17 03/09/17 03/09/17 03/09/17 07:00 15:00 23:00 07:00 15:00 23:00 Intake Total 480 ml 1143 ml 567 ml Output Total 1350 ml 1550 ml Balance 480 ml -207 ml -983 ml Intake Oral 480 ml 840 ml 450 ml IV Total 303 ml 117 ml Output Urine Total 1350 ml 1550 ml # Voids 2 # Bowel Movements 1 Result Diagram: 03/08/17 0446 03/06/17 0423 Objective Remarks GENERAL: AOX3, NAD. SKIN: Warm and dry. HEAD: Normocephalic. EYES: No scleral icterus. No injection or drainage. NECK: Supple, trachea midline. No JVD or lymphadenopathy. CARDIOVASCULAR: Regular rate and rhythm without murmurs, gallops, or rubs. RESPIRATORY: Breath sounds equal bilaterally. No accessory muscle use. GASTROINTESTINAL: Abdomen soft, non-tender, nondistended. MUSCULOSKELETAL: No cyanosis, or edema. BACK: Nontender without obvious deformity. No CVA tenderness. Procedures Cardiac catheterization 03/05/2017 IMPRESSIONS 1. Multivessel coronary artery disease with significant stenosis of the ostial RCA, LAD diagonal bifurcation. 2. Chest pain, failing outpatient antianginal medications. 3. Recent drug-eluting stent placed in the ostium of the RCA with restenosis. RECOMMENDATIONS 1. Mr. Melchor appears to have multivessel coronary artery disease and the recommendation would be for CT Surgery evaluation. 2. I reviewed the films with Dr. Chua and plan would be for bypass of the RCA, LAD and diagonal with a consideration of the ramus. 3. We will obtain a 2-D echo to look at his overall left ventricular function, cardiac structure and possible valvopathies. 4. In anticipation of CT surgery, we will stop his Plavix. My concern is that he recently had a stent placed within the past 3 months and so he will be placed on a heparin drip 1 hour after the TR band is removed. 5. Further recommendations will be made based on the patient's hospital course. 03/09/17: CABG A/P Problem List: (1) Chest pain ICD Code: R07.9 Status: Acute (2) CAD (coronary artery disease) ICD Code: I25.10 Status: Acute (3) Hyperthyroidism ICD Code: E05.90 Status: Acute (4) HTN (hypertension) ICD Code: I10 Status: Chronic (5) HLD (hyperlipidemia) ICD Code: E78.5 Status: Chronic Assessment and Plan Mr. Melchor is a 76-year-old male with a past medical history of hypertension, hyperlipidemia, atrial fibrillation, CAD with ostial RCA stenting on Plavix and aspirin, diverticulitis, skin cancer and hyperthyroidism who presented to the ED on 03/05/2017 due to exertional chest pain. Patient was evaluated by cardiology and underwent LHC on 03/05/2017 which showed multivessel CAD. CABG was recommended. Multivessel Coronary artery disease on left heart cath on 03/05/2017, HNT, HLD - s/p LHC on 03/05/2017 --> Multivessel CAD with significant stenosis of the ostial RCA, LAD diagonal bifurcation. CT surgery consulted. s/p CABG 03/09/17. Keep in the CVICU for now. - 2D echo shows EF 55-60%, Moderate AR with valve area 2.47 cm^2. Continue Aspirin 81mg Qday, Losartan 100mg Qday, Lipitor 80 mg Qhs, Plavix, amiodarone. Recheck BMP and CBC tomorrow. - Atrial fibrillation - Continue digoxin, on Cardizem. Previously on apixaban. - Hyperthyroidism: Continue methimazole 5mg Qday. Full code. Heparin gtt. Rinku Galindo MD Mar 09, 2017 15:26 Rinku Galindo MD Mar 09, 2017 15:26
[2017-03-09] MEDS: ACETAMINOPHEN/HYDROcodone 325 MG/5 MG TAB PO PRN ×2 (15:38→21:35)
[2017-03-09] MEDS: ceFAZolin 2 GM PREMIX 50 ML IV SCH (16:04)
[2017-03-09] MEDS: RESP: ALBUTEROL 2.5 MG/IPRATROPIUM 0.5 MG NEB (SCH) NEB ×2 (16:45→21:26)
[2017-03-09] MEDS: ATORVASTATIN 80 MG TAB PO SCH (21:30)
[2017-03-09] MEDS: AMIODARONE 200 MG TAB PO SCH (21:30)
[2017-03-10] VITALS (12 sets, daily range): BP systolic 102–132; BP diastolic 39–65; PULSE 64–91; RESP 16–18; TEMP 97.8–100.3; O2SAT 94–99
[2017-03-10] MEDS: ACETAMINOPHEN 1000 MG/100 ML VIAL IV SCH ×2 (00:08→05:22)
[2017-03-10] MEDS: ceFAZolin 2 GM PREMIX 50 ML IV SCH ×4 (00:08→22:54)
[2017-03-10] MEDS: RESP: ALBUTEROL 2.5 MG/IPRATROPIUM 0.5 MG NEB (SCH) NEB ×5 (04:22→21:41)
[2017-03-10] MEDS: PANTOPRAZOLE SOD 40 MG DELAYED RELEASE TAB PO SCH (05:15)
[2017-03-10] MEDS: ACETAMINOPHEN/HYDROcodone 325 MG/5 MG TAB PO PRN ×6 (05:21→21:20)
--- NOTE | 2017-03-10 06:24 | RADRPT ---
EXAM DATE/TIME: 03/10/2017 04:08 [facility] COMPARISON: CHEST SINGLE AP, March 09, 2017, 13:53. INDICATIONS : Shortness of breath, possible pulmonary disease. MEDICAL HISTORY : Hypertension. Hypothyroidism. Myocardial infarction. A-Fib CAD SURGICAL HISTORY : Coronary artery stent. CABG. Cardiac cath ENCOUNTER: Subsequent ACUITY: 1 week PAIN SCORE: Non-responsive. LOCATION: Bilateral chest FINDINGS: The cardiac silhouette is enlarged in transverse diameter. There is prominence of the central pulmona ry vasculature with indistinct vascular margins compatible with vascular congestion but no evidence o f overt failure. There is left lower lobe atelectasis versus pneumonia. The right upper lobe atelecta sis has resolved. There is no evidence of pneumothorax. CONCLUSION: 1. Cardiomegaly and findings of vascular congestion without overt failure. 2. Resolution of the right upper lobe atelectasis 3. There is no evidence of pneumothorax. Mainor Quinn MD on March 10, 2017 at 6:22 Board Certified Radiologist. This report was verified electronically.
[2017-03-10 06:27] LABS: HEMATOCRIT 27.5 % (39.0-51.0); MEAN CELL VOLUME 92.5 FL (80.0-100.0); MEAN CORPUSCULAR HEMOGLOBIN 31.6 PG (27.0-34.0); MEAN CORPUSCULAR HGB CONC 34.2 % (32.0-36.0); PLATELET COUNT 135 TH/MM3 (150-450); RED BLOOD COUNT 2.98 MIL/MM3 (4.50-5.90); RED CELL DISTRIBUTION WIDTH 15.2 % (11.6-17.2); REVIEW FLAG FINAL; WHITE BLOOD COUNT 10.5 TH/MM3 (4.0-11.0)
[2017-03-10 06:46] LABS: BICARBONATE 26.4 MEQ/L (21.0-32.0); POTASSIUM 3.7 MEQ/L (3.5-5.1)
[2017-03-10] MEDS: POTASSIUM CHLOR 20 MEQ PREMIX 100 ML IV PRN (07:17)
[2017-03-10] MEDS: AMIODARONE 200 MG TAB PO SCH ×2 (08:53→21:15)
[2017-03-10] MEDS: ASPIRIN 81 MG CHEW TAB PO SCH (08:53)
[2017-03-10] MEDS: CLOPIDOGREL 75 MG TAB PO SCH (08:53)
[2017-03-10] MEDS: SODIUM CHLORIDE 0.9% FLUSH 10 ML FLUSH IV FLUSH SCH ×2 (08:54→21:16)
[2017-03-10] MEDS: DILTIAZEM-CD 120 MG CAP ER PO SCH (08:54)
[2017-03-10] MEDS: MULTIVITAMIN TAB PO SCH (08:55)
[2017-03-10] MEDS: METHIMAZOLE 5 MG TAB PO SCH (09:54)
[2017-03-10] MEDS: INDAPAMIDE 2.5 MG TAB PO SCH (09:54)
[2017-03-10] MEDS ORDERED: SOD PHOSPHATE/SOD BIPHOSPHATE (ADULT) ENEMA 133ML RECTAL PRN (11:45)
[2017-03-10] MEDS ORDERED: DEXTROSE 50% IN WATER 50 ML VIAL(D50) IV PRN (11:45)
[2017-03-10] MEDS ORDERED: GLUCAGON 1 MG/ML VIAL OTHER PRN (11:45)
[2017-03-10] MEDS ORDERED: BISACODYL 10 MG SUPP RECTAL PRN (11:45)
[2017-03-10] MEDS: POTASSIUM CHLORIDE 10 MEQ CONTROLLED RELEASE TAB PO SCH ×2 (11:45→21:15)
--- NOTE | 2017-03-10 11:51 | PD.CAR.PN ---
CVT Progress Note CVT: POD #: 1 Subjective/Hospital Course: 76/ male HX CAD unstable angina , recent SARAH to ostial RCA in 11/10, did well initial 3 months then developed recurrent chest pain about 3 weeks ago , underwent nuclear stress testing 02/23 which showed anteroseptal ischemia . Underwent cardiac cath by Dr Nation 03/05 90% mid /distal LAD, 70% diagonal, RCA 95%, ramus 60% EF 55%, ECH showed mod AI pt had been on plavix at home, last dose 03/05/17 PMH : CAD, HTN, HLP Afib, skin cancer, hyperthyroidism 03/06 pt currently pain free, on Heparin gtt PRU 187 scheduled for surgery on Sunday on statin and ASA 03/07 doing well no complaints scheduled for surgery on Thursday 03/08 stable for surgery tomorrow on room air, no chest pain 03/09/17 No complaints. Still on dopamine and Heber at significant dose. Weight up quite a bit also. Objective: Vital Signs Date Time Temp Pulse Resp B/P Pulse Ox O2 Delivery O2 Flow Rate FiO2 03/10/17 09:54 16 03/10/17 08:54 18 03/10/17 08:23 97 Nasal Cannula 4.00 03/10/17 08:00 97 Nasal Cannula 4.00 03/10/17 08:00 98.0 68 18 97 119/43 03/10/17 07:00 68 03/10/17 04:00 66 03/10/17 04:00 97.8 64 16 97 104/39 03/10/17 04:00 97 Nasal Cannula 4.00 03/10/17 00:40 18 03/10/17 00:00 97.9 77 16 102/49 97 116/40 03/10/17 00:00 79 03/10/17 00:00 97 Nasal Cannula 5.00 03/09/17 21:27 98 Nasal Cannula 4.00 03/09/17 20:00 98.1 82 18 91/43 97 103/42 03/09/17 20:00 98.1 03/09/17 19:45 97 Nasal Cannula 5.00 03/09/17 19:35 80 03/09/17 18:38 17 03/09/17 18:25 65 03/09/17 17:08 74 03/09/17 16:31 98.4 03/09/17 16:24 64 03/09/17 16:23 99 Nasal Cannula 4.00 03/09/17 15:03 98.4 71 19 95/54 98 105/50 03/09/17 15:02 71 03/09/17 14:06 98.4 03/09/17 14:02 129 03/09/17 13:39 98.4 113 19 104/58 97 70/45 03/09/17 13:15 97 Nasal Cannula 5.00 03/09/17 13:15 97 Nasal Cannula 5 03/09/17 13:09 95 03/09/17 12:58 50 03/09/17 12:57 99 Mechanical Ventilator 50 03/09/17 12:54 122 03/09/17 12:35 95 50 Labs: Laboratory Tests Test 03/10/17 05:45 White Blood Count 10.5 TH/MM3 (4.0-11.0) Red Blood Count 2.98 MIL/MM3 (4.50-5.90) Hemoglobin 9.4 GM/DL (13.0-17.0) Hematocrit 27.5 % (39.0-51.0) Mean Corpuscular Volume 92.5 FL (80.0-100.0) Mean Corpuscular Hemoglobin 31.6 PG (27.0-34.0) Mean Corpuscular Hemoglobin 34.2 % Concent (32.0-36.0) Red Cell Distribution Width 15.2 % (11.6-17.2) Platelet Count 135 TH/MM3 (150-450) Mean Platelet Volume 9.1 FL (7.0-11.0) Sodium Level 143 MEQ/L (136-145) Potassium Level 3.7 MEQ/L (3.5-5.1) Chloride Level 109 MEQ/L (98-107) Carbon Dioxide Level 26.4 MEQ/L (21.0-32.0) Anion Gap 8 MEQ/L (5-15) Blood Urea Nitrogen 18 MG/DL (7-18) Creatinine 0.94 MG/DL (0.60-1.30) Estimat Glomerular Filtration 78 ML/MIN (>89) Rate Random Glucose 94 MG/DL (74-106) Calcium Level 8.0 MG/DL (8.5-10.1) Magnesium Level 2.0 MG/DL (1.5-2.5) Result Diagram: 03/10/17 0545 03/10/17 0545 Imaging: Last 24 hours Impressions Chest X-Ray 03/10/17 0500 Signed Impressions: Service Date/Time: Friday, March 10, 2017 04:08 - CONCLUSION: 1. Cardiomegaly and findings of vascular congestion without overt failure. 2. Resolution of the right upper lobe atelectasis 3. There is no evidence of pneumothorax. Mainor Quinn MD Cardiovascular: RRR Telemetry: NSR Pulmonary: CTA GI/: NABS, NT Incision: dry and intact CT: 120ml/12 hrs Plan: Wean Heber, dopamine May transfer later if off Heber. diurese Advance diet Remove iqbal Encourage ambulation continue chest tubes one more day (1) CAD (coronary artery disease) Plan: Severe multivessel CAD with progression of LAD bifurcation lesion with Diag, and ISR RCA stent stable and pain free Plavix stopped/ on heparin gtt scheduled for surgery in am (2) Atrial fibrillation Plan: luis a to 40's decrease cardizem anticipate LA Ligation and modified MAZE with CABG (3) HTN (hypertension) (4) HLD (hyperlipidemia) (5) Angina pectoris Sarah Brian MD Mar 10, 2017 11:51
[2017-03-10] MEDS ORDERED: BENZOCAINE 6 MG/MENTHOL 10 MG LOZENGE BUCCAL PRN (12:30)
[2017-03-10] MEDS: ONDANSETRON HCL 4 MG/2 ML VIAL IVP PRN ×2 (12:54→22:54)
[2017-03-10] MEDS: INSULIN ASPART SUPPLEMENTAL SCALE SQ SCH ×3 (14:00→22:00)
--- NOTE | 2017-03-10 14:22 | HHI.PR ---
Subjective Remarks Follow-up for hypotension, anemia No complaints, mild chest pain surgical site with deep inspiration, no fever or chills, dry cough. Blood pressure still borderline soft despite being on Heber- Synephrine and dopamine. No shortness of breath. Objective Vitals Vital Signs Date Time Temp Pulse Resp B/P Pulse Ox O2 Delivery O2 Flow Rate FiO2 03/10/17 12:00 97 Nasal Cannula 4.00 03/10/17 11:00 98.0 68 18 110/57 97 Arterial Line 03/10/17 11:00 87 03/10/17 09:54 16 03/10/17 08:54 18 03/10/17 08:23 97 Nasal Cannula 4.00 03/10/17 08:00 97 Nasal Cannula 4.00 03/10/17 08:00 98.0 68 18 97 119/43 03/10/17 07:00 68 03/10/17 04:00 66 03/10/17 04:00 97.8 64 16 97 104/39 03/10/17 04:00 97 Nasal Cannula 4.00 03/10/17 00:40 18 03/10/17 00:00 97.9 77 16 102/49 97 116/40 03/10/17 00:00 79 03/10/17 00:00 97 Nasal Cannula 5.00 03/09/17 21:27 98 Nasal Cannula 4.00 03/09/17 20:00 98.1 82 18 91/43 97 103/42 03/09/17 20:00 98.1 03/09/17 19:45 97 Nasal Cannula 5.00 03/09/17 19:35 80 03/09/17 18:38 17 03/09/17 18:25 65 03/09/17 17:08 74 03/09/17 16:31 98.4 03/09/17 16:24 64 03/09/17 16:23 99 Nasal Cannula 4.00 03/09/17 15:03 98.4 71 19 95/54 98 105/50 03/09/17 15:02 71 I/O 03/09/17 03/09/17 03/09/17 03/10/17 03/10/17 03/10/17 07:00 15:00 23:00 07:00 15:00 23:00 Intake Total 567 ml 2950 ml 1654 ml Output Total 1550 ml 440 ml 1130 ml Balance -983 ml 2510 ml 524 ml Intake Oral 450 ml 50 ml 360 ml IV Total 117 ml 2400 ml 1294 ml Albumin 500 ml Output Urine Total 1550 ml 280 ml 1010 ml Chest Tube Drainage Total 160 ml 120 ml # Bowel Movements 0 0 Result Diagram: 03/10/17 0545 03/10/17 0545 Objective Remarks GENERAL: AOX3, NAD. On room air. SKIN: Warm and dry. EYES: No scleral icterus. No injection or drainage. CARDIOVASCULAR: Regular rate and rhythm without murmurs, gallops, or rubs. Chest tube in place with sanguinous output, sterile dressings in place. RESPIRATORY: Breath sounds equal bilaterally. No accessory muscle use. GASTROINTESTINAL: Abdomen soft, non-tender, nondistended. MUSCULOSKELETAL: No cyanosis, or edema. BACK: Nontender without obvious deformity. No CVA tenderness. Alert, awake, oriented 3. Procedures Cardiac catheterization 03/05/2017 IMPRESSIONS 1. Multivessel coronary artery disease with significant stenosis of the ostial RCA, LAD diagonal bifurcation. 2. Chest pain, failing outpatient antianginal medications. 3. Recent drug-eluting stent placed in the ostium of the RCA with restenosis. RECOMMENDATIONS 1. Mr. Melchor appears to have multivessel coronary artery disease and the recommendation would be for CT Surgery evaluation. 2. I reviewed the films with Dr. Chua and plan would be for bypass of the RCA, LAD and diagonal with a consideration of the ramus. 3. We will obtain a 2-D echo to look at his overall left ventricular function, cardiac structure and possible valvopathies. 4. In anticipation of CT surgery, we will stop his Plavix. My concern is that he recently had a stent placed within the past 3 months and so he will be placed on a heparin drip 1 hour after the TR band is removed. 5. Further recommendations will be made based on the patient's hospital course. 03/09/17: CABG A/P Problem List: (1) Chest pain ICD Code: R07.9 Status: Acute (2) CAD (coronary artery disease) ICD Code: I25.10 Status: Acute (3) Hyperthyroidism ICD Code: E05.90 Status: Acute (4) HTN (hypertension) ICD Code: I10 Status: Chronic (5) HLD (hyperlipidemia) ICD Code: E78.5 Status: Chronic Assessment and Plan Mr. Melchor is a 76-year-old male with a past medical history of hypertension, hyperlipidemia, atrial fibrillation, CAD with ostial RCA stenting on Plavix and aspirin, diverticulitis, skin cancer and hyperthyroidism who presented to the ED on 03/05/2017 due to exertional chest pain. Patient was evaluated by cardiology and underwent LHC on 03/05/2017 which showed multivessel CAD. CABG was recommended. Multivessel Coronary artery disease on left heart cath on 03/05/2017, HNT, HLD - s/p LHC on 03/05/2017 --> Multivessel CAD with significant stenosis of the ostial RCA, LAD diagonal bifurcation. CT surgery consulted. s/p CABG 03/09/17. Keep in the CVICU for now. - 2D echo shows EF 55-60%, Moderate AR with valve area 2.47 cm^2. Continue Aspirin, Lipitor, amiodarone. Recheck CBC tomorrow. Mild anemia-could be from hemodilution, recheck CBC tomorrow - Atrial fibrillation - Continue digoxin, on Cardizem. Previously on apixaban. - Hyperthyroidism: Continue methimazole 5mg Qday. - Hypokalemia-replaced Full code. Heparin gtt. Rinku Galindo MD Mar 10, 2017 14:22
[2017-03-10] MEDS ORDERED: FUROSEMIDE 40 MG/4 ML VIAL IV PUSH SCH (18:00)
[2017-03-10] MEDS: ATORVASTATIN 80 MG TAB PO SCH (21:14)
[2017-03-10] MEDS: SENNOSIDES 8.6 MG TAB PO SCH (21:15)
[2017-03-10] MEDS: DOCUSATE SODIUM 100 MG CAP PO SCH (21:15)
[2017-03-11] VITALS (17 sets, daily range): BP systolic 93–125; BP diastolic 42–60; PULSE 77–113; RESP 18; TEMP 98.2–100.1; O2SAT 93–99
[2017-03-11] MEDS: INSULIN ASPART SUPPLEMENTAL SCALE SQ SCH ×2 (03:19→06:00)
[2017-03-11] MEDS: ACETAMINOPHEN 325 MG TAB PO PRN (03:20)
[2017-03-11] MEDS: ONDANSETRON HCL 4 MG/2 ML VIAL IVP PRN ×2 (04:15→18:06)
[2017-03-11] MEDS: KETOROLAC TROMETHAMINE 30 MG/ML (IVP) VIAL IV PUSH PRN (04:15)
[2017-03-11] MEDS: PANTOPRAZOLE SOD 40 MG DELAYED RELEASE TAB PO SCH (04:16)
[2017-03-11 05:57] LABS: AUTOMATED NEUTROPHIL # 7.1 TH/MM3 (1.8-7.7); BASOPHIL % 0.3 % (0.0-2.0); EOSINOPHIL # 0.1 TH/MM3 (0-0.4); EOSINOPHIL % 1.4 % (0.0-4.0); HEMATOCRIT 24.2 % (39.0-51.0); LYMPHOCYTE # 1.2 TH/MM3 (1.0-4.8); MEAN CELL VOLUME 93.6 FL (80.0-100.0); MEAN CORPUSCULAR HEMOGLOBIN 31.3 PG (27.0-34.0); MEAN CORPUSCULAR HGB CONC 33.4 % (32.0-36.0); MONO % 10.1 % (0.0-8.0); NEUT % 75.2 % (16.0-70.0); PLATELET COUNT 98 TH/MM3 (150-450); RED BLOOD COUNT 2.59 MIL/MM3 (4.50-5.90); RED CELL DISTRIBUTION WIDTH 15.3 % (11.6-17.2); WHITE BLOOD COUNT 9.5 TH/MM3 (4.0-11.0)
[2017-03-11 06:04] LABS: HEMO FLAGS AUTO DIFF
[2017-03-11 06:20] LABS: BICARBONATE 26.9 MEQ/L (21.0-32.0); MAGNESIUM 2.2 MG/DL (1.5-2.5)
[2017-03-11] MEDS: DILTIAZEM-CD 120 MG CAP ER PO SCH ×2 (07:38→15:10)
[2017-03-11] MEDS: POTASSIUM CHLOR 20 MEQ PREMIX 100 ML IV PRN (07:41)
[2017-03-11] MEDS: POLYETHYLENE GLYCOL 17 GM PKG PO SCH (08:15)
[2017-03-11] MEDS: AMIODARONE 200 MG TAB PO SCH ×2 (08:15→20:50)
[2017-03-11] MEDS: CLOPIDOGREL 75 MG TAB PO SCH (08:15)
[2017-03-11] MEDS: MAGNESIUM HYDROXIDE SUSP 30 ML CUP PO SCH (08:15)
[2017-03-11] MEDS: DOCUSATE SODIUM 100 MG CAP PO SCH ×2 (08:16→20:50)
[2017-03-11] MEDS: INDAPAMIDE 2.5 MG TAB PO SCH (08:16)
[2017-03-11] MEDS: ASPIRIN 81 MG CHEW TAB PO SCH (08:16)
[2017-03-11] MEDS: POTASSIUM CHLORIDE 10 MEQ CONTROLLED RELEASE TAB PO SCH ×2 (08:16→20:50)
[2017-03-11] MEDS: SODIUM CHLORIDE 0.9% FLUSH 10 ML FLUSH IV FLUSH SCH ×2 (08:17→20:51)
[2017-03-11] MEDS: METHIMAZOLE 5 MG TAB PO SCH (08:17)
[2017-03-11] MEDS: MULTIVITAMIN TAB PO SCH (08:18)
[2017-03-11] MEDS: MULTIVITAMINS/MINERALS THERAPEUTIC TAB PO SCH (08:19)
[2017-03-11 08:51] LABS: PLATELET ESTIMATE SMEAR LOW (NORMAL); PLATELET MORPHOLOGY NORMAL (NORMAL); SCAN/DIFF AUTO DIFF CONFIRMED
--- NOTE | 2017-03-11 09:37 | PD.CAR.PN ---
CVT Progress Note CVT: POD #: 2 Subjective/Hospital Course: 76/ male HX CAD unstable angina , recent SARAH to ostial RCA in 11/10, did well initial 3 months then developed recurrent chest pain about 3 weeks ago , underwent nuclear stress testing 02/23 which showed anteroseptal ischemia . Underwent cardiac cath by Dr Nation 03/05 90% mid /distal LAD, 70% diagonal, RCA 95%, ramus 60% EF 55%, ECH showed mod AI pt had been on plavix at home, last dose 03/05/17 PMH : CAD, HTN, HLP Afib, skin cancer, hyperthyroidism 03/06 pt currently pain free, on Heparin gtt PRU 187 scheduled for surgery on Sunday on statin and ASA 03/07 doing well no complaints scheduled for surgery on Thursday 03/08 stable for surgery tomorrow on room air, no chest pain 03/09/17 No complaints. Still on dopamine and Heber at significant dose. Weight up quite a bit also. 03/11/17 No complaints. Progressing well Off inotropes Objective: Vital Signs Date Time Temp Pulse Resp B/P Pulse Ox O2 Delivery O2 Flow Rate FiO2 03/11/17 07:27 98.9 92 18 105/54 97 03/11/17 07:27 95 Nasal Cannula 2.00 03/11/17 07:00 92 03/11/17 05:30 18 03/11/17 03:00 97 Room Air 03/11/17 03:00 100.1 82 18 93/42 97 03/11/17 03:00 82 03/10/17 23:00 100.3 91 18 127/64 99 03/10/17 23:00 87 03/10/17 23:00 97 Room Air 03/10/17 21:06 94 21 03/10/17 20:00 86 18 115/54 95 03/10/17 19:30 18 03/10/17 19:00 85 03/10/17 19:00 98 Room Air 03/10/17 19:00 99.3 85 18 132/65 98 03/10/17 16:00 96 Room Air 03/10/17 15:58 98.2 68 18 117/56 97 03/10/17 15:00 88 03/10/17 13:00 96 Nasal Cannula 1.00 03/10/17 12:30 97 Nasal Cannula 2.00 03/10/17 12:28 16 03/10/17 12:00 97 Nasal Cannula 4.00 03/10/17 11:00 98.0 68 18 110/57 97 Arterial Line 03/10/17 11:00 87 03/10/17 09:54 16 Labs: Laboratory Tests Test 03/11/17 05:40 White Blood Count 9.5 TH/MM3 (4.0-11.0) Red Blood Count 2.59 MIL/MM3 (4.50-5.90) Hemoglobin 8.1 GM/DL (13.0-17.0) Hematocrit 24.2 % (39.0-51.0) Mean Corpuscular Volume 93.6 FL (80.0-100.0) Mean Corpuscular Hemoglobin 31.3 PG (27.0-34.0) Mean Corpuscular Hemoglobin 33.4 % Concent (32.0-36.0) Red Cell Distribution Width 15.3 % (11.6-17.2) Platelet Count 98 TH/MM3 (150-450) Mean Platelet Volume 8.6 FL (7.0-11.0) Neutrophils (%) (Auto) 75.2 % (16.0-70.0) Lymphocytes (%) (Auto) 13.0 % (9.0-44.0) Monocytes (%) (Auto) 10.1 % (0.0-8.0) Eosinophils (%) (Auto) 1.4 % (0.0-4.0) Basophils (%) (Auto) 0.3 % (0.0-2.0) Neutrophils # (Auto) 7.1 TH/MM3 (1.8-7.7) Lymphocytes # (Auto) 1.2 TH/MM3 (1.0-4.8) Monocytes # (Auto) 1.0 TH/MM3 (0-0.9) Eosinophils # (Auto) 0.1 TH/MM3 (0-0.4) Basophils # (Auto) 0.0 TH/MM3 (0-0.2) CBC Comment AUTO DIFF Differential Comment AUTO DIFF CONFIRMED Platelet Estimate LOW (NORMAL) Platelet Morphology Comment NORMAL (NORMAL) Sodium Level 136 MEQ/L (136-145) Potassium Level 4.0 MEQ/L (3.5-5.1) Chloride Level 104 MEQ/L (98-107) Carbon Dioxide Level 26.9 MEQ/L (21.0-32.0) Anion Gap 5 MEQ/L (5-15) Blood Urea Nitrogen 22 MG/DL (7-18) Creatinine 1.02 MG/DL (0.60-1.30) Estimat Glomerular Filtration 71 ML/MIN (>89) Rate Random Glucose 114 MG/DL (74-106) Calcium Level 8.0 MG/DL (8.5-10.1) Magnesium Level 2.2 MG/DL (1.5-2.5) Result Diagram: 03/11/1740 03/11/1740 Cardiovascular: RRR Telemetry: NSR Pulmonary: CTA GI/: NABS, NT Incision: dry and intact CT: 160ml/24 hrs Plan: Encourage ambulation No beta steve secondary to low BP. Stim BM (1) CAD (coronary artery disease) Plan: Severe multivessel CAD with progression of LAD bifurcation lesion with Diag, and ISR RCA stent stable and pain free Plavix stopped/ on heparin gtt scheduled for surgery in am (2) Atrial fibrillation Plan: luis a to 40's decrease cardizem anticipate LA Ligation and modified MAZE with CABG (3) HTN (hypertension) (4) HLD (hyperlipidemia) (5) Angina pectoris Sarah Brian MD Mar 11, 2017 09:37
--- NOTE | 2017-03-11 10:22 | HHI.PR ---
Subjective Remarks Follow-up for chest pain Surgical pain overnight, mild with no chest pain, no shortness of breath. Afebrile, lower extremity swelling and had swelling worse. No dyspnea on exertion. Objective Vitals Vital Signs Date Time Temp Pulse Resp B/P Pulse Ox O2 Delivery O2 Flow Rate FiO2 03/11/17 07:27 98.9 92 18 105/54 97 03/11/17 07:27 95 Nasal Cannula 2.00 03/11/17 07:00 92 03/11/17 05:30 18 03/11/17 03:00 97 Room Air 03/11/17 03:00 100.1 82 18 93/42 97 03/11/17 03:00 82 03/10/17 23:00 100.3 91 18 127/64 99 03/10/17 23:00 87 03/10/17 23:00 97 Room Air 03/10/17 21:06 94 21 03/10/17 20:00 86 18 115/54 95 03/10/17 19:30 18 03/10/17 19:00 85 03/10/17 19:00 98 Room Air 03/10/17 19:00 99.3 85 18 132/65 98 03/10/17 16:00 96 Room Air 03/10/17 15:58 98.2 68 18 117/56 97 03/10/17 15:00 88 03/10/17 13:00 96 Nasal Cannula 1.00 03/10/17 12:30 97 Nasal Cannula 2.00 03/10/17 12:28 16 03/10/17 12:00 97 Nasal Cannula 4.00 03/10/17 11:00 98.0 68 18 110/57 97 Arterial Line 03/10/17 11:00 87 I/O 03/10/17 03/10/17 03/10/17 03/11/17 03/11/17 03/11/17 07:00 15:00 23:00 07:00 15:00 23:00 Intake Total 1654 ml 2011 ml 815 ml Output Total 1130 ml 660 ml 350 ml Balance 524 ml 1351 ml 465 ml Intake Oral 360 ml 1200 ml 460 ml IV Total 1294 ml 811 ml 355 ml Output Urine Total 1010 ml 600 ml 250 ml Chest Tube Drainage Total 120 ml 60 ml 100 ml # Bowel Movements 0 0 0 Result Diagram: 03/11/17 0540 03/11/17 0540 Objective Remarks GENERAL: AOX3, NAD. On room air. SKIN: Warm and dry. EYES: No scleral icterus. No injection or drainage. CARDIOVASCULAR: Regular rate and rhythm without murmurs, gallops, or rubs. Chest tube in place with sanguinous output, sternal dressings in place. RESPIRATORY: Breath sounds equal bilaterally. No accessory muscle use. GASTROINTESTINAL: Abdomen soft, non-tender, nondistended. MUSCULOSKELETAL: No cyanosis, or edema. BACK: Nontender without obvious deformity. No CVA tenderness. Alert, awake, oriented 3. Procedures Cardiac catheterization 03/05/2017 IMPRESSIONS 1. Multivessel coronary artery disease with significant stenosis of the ostial RCA, LAD diagonal bifurcation. 2. Chest pain, failing outpatient antianginal medications. 3. Recent drug-eluting stent placed in the ostium of the RCA with restenosis. RECOMMENDATIONS 1. Mr. Melchor appears to have multivessel coronary artery disease and the recommendation would be for CT Surgery evaluation. 2. I reviewed the films with Dr. Chua and plan would be for bypass of the RCA, LAD and diagonal with a consideration of the ramus. 3. We will obtain a 2-D echo to look at his overall left ventricular function, cardiac structure and possible valvopathies. 4. In anticipation of CT surgery, we will stop his Plavix. My concern is that he recently had a stent placed within the past 3 months and so he will be placed on a heparin drip 1 hour after the TR band is removed. 5. Further recommendations will be made based on the patient's hospital course. 03/09/17: CABG A/P Problem List: (1) Chest pain ICD Code: R07.9 Status: Acute (2) CAD (coronary artery disease) ICD Code: I25.10 Status: Acute (3) Hyperthyroidism ICD Code: E05.90 Status: Acute (4) HTN (hypertension) ICD Code: I10 Status: Chronic (5) HLD (hyperlipidemia) ICD Code: E78.5 Status: Chronic Assessment and Plan Mr. Melchor is a 76-year-old male with a past medical history of hypertension, hyperlipidemia, atrial fibrillation, CAD with ostial RCA stenting on Plavix and aspirin, diverticulitis, skin cancer and hyperthyroidism who presented to the ED on 03/05/2017 due to exertional chest pain. Patient was evaluated by cardiology and underwent LHC on 03/05/2017 which showed multivessel CAD. CABG was recommended. Multivessel Coronary artery disease on left heart cath on 03/05/2017, HNT, HLD - s/p LHC on 03/05/2017 --> Multivessel CAD with significant stenosis of the ostial RCA, LAD diagonal bifurcation. CT surgery consulted. s/p CABG 03/09/17. Keep in the CVICU for now, off dopamine this morning, off neosynephrine - 2D echo shows EF 55-60%, Moderate AR with valve area 2.47 cm^2. Continue Aspirin, Lipitor, amiodarone. Hemoglobin still dropping, might need transfusion tomorrow. Extremity swelling and edema-if blood pressure remains stable, will give a dose of Lasix. Mild anemia-could be from hemodilution, Hgb dropped, recheck CBC tomorrow - Atrial fibrillation - Continue digoxin, on Cardizem. Previously on apixaban. - Hyperthyroidism: Continue methimazole 5mg Qday. - Hypokalemia-replaced Full code. Rinku Galindo MD Mar 11, 2017 10:22
[2017-03-11] MEDS: RESP: ALBUTEROL 2.5 MG/IPRATROPIUM 0.5 MG NEB (SCH) NEB ×3 (10:54→19:50)
[2017-03-11] MEDS: ACETAMINOPHEN/HYDROcodone 325 MG/5 MG TAB PO PRN ×2 (12:33→20:49)
[2017-03-11] MEDS ORDERED: AMIODARONE 150 MG/D5W 97 ML BOLUS 10 MINUTES IV ONE ×2 (13:45)
[2017-03-11] MEDS: MAGNESIUM SULFATE 1 GM PREMIX 100 ML IV SCH ×2 (14:00→14:23)
[2017-03-11] MEDS: METOPROLOL TARTRATE 5 MG/5 ML VIAL IV PUSH PRN ×2 (15:33→17:56)
--- NOTE | 2017-03-11 16:10 | EKG ---
Date Performed: 03/10/2017 Time Performed: 04:39:10 PTAGE: 76 years EKG: Sinus rhythm When compared to previous racing, heart rate is faster, otherwise No significant change. Normal ECG PREVIOUS TRACING : 03/05/2017 04.42.35 DOCTOR: Cholo Kramer Interpretating Date/Time 03/11/2017 16:09:20
[2017-03-11] MEDS: SENNOSIDES 8.6 MG TAB PO SCH (20:50)
[2017-03-11] MEDS: ATORVASTATIN 80 MG TAB PO SCH (20:50)
[2017-03-12] VITALS (26 sets, daily range): BP systolic 103–120; BP diastolic 53–72; PULSE 78–110; RESP 18; TEMP 98.2–98.6; O2SAT 98–100
[2017-03-12] MEDS: ACETAMINOPHEN/HYDROcodone 325 MG/5 MG TAB PO PRN ×4 (02:10→21:24)
[2017-03-12] MEDS: PANTOPRAZOLE SOD 40 MG DELAYED RELEASE TAB PO SCH (06:00)
[2017-03-12] MEDS: INDAPAMIDE 2.5 MG TAB PO SCH (08:40)
[2017-03-12] MEDS: METHIMAZOLE 5 MG TAB PO SCH (08:41)
[2017-03-12] MEDS: MULTIVITAMIN TAB PO SCH (08:41)
[2017-03-12] MEDS: MULTIVITAMINS/MINERALS THERAPEUTIC TAB PO SCH (08:41)
[2017-03-12] MEDS: POTASSIUM CHLORIDE 10 MEQ CONTROLLED RELEASE TAB PO SCH (08:42)
[2017-03-12] MEDS: ASPIRIN 81 MG CHEW TAB PO SCH (08:43)
[2017-03-12] MEDS: CLOPIDOGREL 75 MG TAB PO SCH (08:44)
[2017-03-12] MEDS: DILTIAZEM-CD 120 MG CAP ER PO SCH (08:44)
[2017-03-12] MEDS: AMIODARONE 200 MG TAB PO SCH ×2 (08:44→21:22)
[2017-03-12] MEDS: DOCUSATE SODIUM 100 MG CAP PO SCH ×2 (08:45→21:22)
[2017-03-12] MEDS: SODIUM CHLORIDE 0.9% FLUSH 10 ML FLUSH IV FLUSH SCH ×2 (08:45→21:00)
[2017-03-12] MEDS: MAGNESIUM HYDROXIDE SUSP 30 ML CUP PO SCH (08:45)
[2017-03-12] MEDS: POLYETHYLENE GLYCOL 17 GM PKG PO SCH (08:46)
[2017-03-12] MEDS: ONDANSETRON HCL 4 MG/2 ML VIAL IVP PRN ×2 (08:52→18:23)
[2017-03-12] MEDS: RESP: ALBUTEROL 2.5 MG/IPRATROPIUM 0.5 MG NEB (SCH) NEB (09:11)
--- NOTE | 2017-03-12 10:40 | PD.CAR.PN ---
CVT Progress Note Subjective/Hospital Course: 76/ male HX CAD unstable angina , recent SARAH to ostial RCA in 11/10, did well initial 3 months then developed recurrent chest pain about 3 weeks ago , underwent nuclear stress testing 02/23 which showed anteroseptal ischemia . Underwent cardiac cath by Dr Nation 03/05 90% mid /distal LAD, 70% diagonal, RCA 95%, ramus 60% EF 55%, ECH showed mod AI pt had been on plavix at home, last dose 03/05/17 PMH : CAD, HTN, HLP Afib, skin cancer, hyperthyroidism 03/06 pt currently pain free, on Heparin gtt PRU 187 scheduled for surgery on Sunday on statin and ASA 03/07 doing well no complaints scheduled for surgery on Thursday 03/08 stable for surgery tomorrow on room air, no chest pain 03/09/17 No complaints. Still on dopamine and Heber at significant dose. Weight up quite a bit also. 03/11/17 No complaints. Progressing well Off inotropes 03/12 on nasal cannula in afib rate controlled/ will need to restart eliquis once chest tubes out HGB 8 03/11, recheck lab today dc cardizem, add BB / on amiodarone continue wean 02 Objective: GENERAL: SKIN: Warm and dry.prevena dressing to chest / incision intact left leg / + 1 edema HEAD: Normocephalic. EYES: No scleral icterus. No injection or drainage. NECK: Supple, trachea midline. No JVD or lymphadenopathy. CARDIOVASCULAR: Regular rate and rhythm without murmurs, gallops, or rubs. +1 lower ext edema RESPIRATORY: Breath sounds equal bilaterally. No accessory muscle use. chest tube to wall suction/ no air leak/ drained 110cc/ 12hrs GASTROINTESTINAL: Abdomen soft, non-tender, nondistended. MUSCULOSKELETAL: No cyanosis, or edema. BACK: Nontender without obvious deformity. No CVA tenderness. Vital Signs Date Time Temp Pulse Resp B/P Pulse Ox O2 Delivery O2 Flow Rate FiO2 03/12/17 09:12 99 Nasal Cannula 3.00 03/12/17 08:26 98 03/12/17 07:20 98.6 94 18 106/60 100 03/12/17 07:00 89 03/12/17 04:00 92 03/12/17 03:33 98.6 80 18 105/62 99 03/12/17 03:33 99 Nasal Cannula 2.00 03/12/17 03:00 83 03/12/17 02:00 88 03/12/17 01:00 86 03/12/17 00:00 82 03/11/17 23:50 99 Nasal Cannula 2.00 03/11/17 23:50 99 Nasal Cannula 2.00 03/11/17 23:50 98.5 77 18 107/60 99 03/11/17 23:00 80 03/11/17 22:00 92 03/11/17 21:00 96 03/11/17 20:00 86 03/11/17 19:50 93 Nasal Cannula 2.00 03/11/17 19:30 99 Nasal Cannula 2.00 03/11/17 19:30 98.2 98 18 103/53 99 03/11/17 19:30 99 Nasal Cannula 2.00 03/11/17 19:00 98 03/11/17 17:59 110 105/54 03/11/17 15:06 95 Room Air 03/11/17 15:04 98.6 113 18 117/47 96 03/11/17 15:00 113 03/11/17 13:33 18 03/11/17 11:41 95 Room Air 03/11/17 11:39 98.3 82 18 125/50 96 03/11/17 11:00 82 Result Diagram: 03/11/17 0540 03/11/17 0540 Telemetry: afib (1) CAD (coronary artery disease) Plan: Severe multivessel CAD with progression of LAD bifurcation lesion with Diag, and ISR RCA stent continue pulm toileiting / nebs ezpap acapella wean off 02 + 5 kg/ gentle diuresis OOB ambulate/ CM for HHC (2) Atrial fibrillation Plan: change to BB will need to resume Eliguis when chest tubes out Afib RVR last pm , s/p mag sulfate and amiodarone bolus remains on amiodarone s/p LA Ligation and modified MAZE with CABG (3) HTN (hypertension) Plan: BP on lower side/ DC cardizem (4) HLD (hyperlipidemia) Plan: on statin (5) Blood loss anemia Plan: recheck HGB / start ferrous sulfate Shreya Franco Mar 12, 2017 10:40
[2017-03-12] MEDS ORDERED: FUROSEMIDE 40 MG/4 ML VIAL IV PUSH ONE (10:45)
--- NOTE | 2017-03-12 10:50 | HHI.FF ---
Face to Face Verification Diagnosis: (1) Hyperthyroidism (2) HTN (hypertension) (3) HLD (hyperlipidemia) (4) Atrial fibrillation (5) CAD (coronary artery disease) (6) S/P CABG x 3 Home Health Nursing Order: Signs/symptoms of disease process Wound care and dressing changes Nursing assessment with vital signs Instructions: Heart and Vascular Surgery patients *Special attention to sternal dressing Mandatory frequency Assess and evaluation, 4 days in a row The next week 3X week 2 times a week for 4 weeks 1 time a week for 5 weeks Schedule Heart and Vascular patients for full 60 day certification period Initial visit Review Open Heart Surgery Discharge Instructions (Sternal precautions, Activity, Elastic hose, Incision care, Driving, Incentive spirometry, Smoking, [place], Work and other) Need Betadine to paint incision Medication reconciliation Importance of follow up care/ check on appointments Make calendar record temperature daily When to call [facility] nurse, review instructions, phone list Incentive Spirometry, demonstration Visit 1- Begin discharge instruction for patient family and/ or caregiver using teach back method- Signs and symptoms of infection Disease characteristics Medicines and side effects Foods and nutrition/ appetite Infection control/ hand washing/ hygiene Visit 2- Continue teaching Discharge instructions- include additional information on smoking cessation , sternal dressing (sternal vac) Visit 3- Continue teaching- Cough and deep breathing, incision monitoring. Choose my plate Visit 4- Continue teaching- Discuss limitations Discuss how they are feeling Discuss progress toward goals Incentive spirometry Q1 hr x 10, while awake, also use acapella device hourly whole awake Sternal Breast Bone Precautions: NO pushing or pulling, ( pt must use sternal pillow to support chest with all activities and with coughing ( takes up to 3 months breast bone to heal ) All females to wear sternal bra , launder as needed Daily incision care: ok to shower daily, no tub bath. Wash all incisions with liquid dial soap, clean wash cloth to each site, rinse and pat dry. Observe for any signs of infection, such as drainage which is dark yellow, herzog, green or foul smelling. Immediately report to the surgeon any drainage from the chest incision, or legs, and for any abnormal drainage from the chest tube sites. Notify surgeon if any temp >101.5 degrees F. When specialty dressing removed/ or if you do not have one, continue to shower daily as above, then rinse and pat incision dry and paint with betadine daily x 5 days. Allow steri strips to fall off if you have any. Avoid lotions, creams, salves, oils, etc. for the first month Please see attached forms for additional instructions regarding post Open Heart specialty wound vacuum dressings. PETE or Prevena , Dressing to be removed by Nursing staff on ___03/16/17____ F/U appointment: as per DC instructions: PCP in 2 weeks, CV surgeon 2 weeks, Manager Of Supply Chain 3-4 weeks For any questions regarding incisions/ dressing / meds / post op care or above Symptoms, Sunday 8am-5pm Heart & Vascular Surgery Office ( Dr. Chua & Dr. Brian), After Hours / Nights (5pm -8am) Weekends and Holidays Please call [facility] Card[facility] Unit (C[facility]) Charge Nurse I have seen patient Amos Melchor on 03/12/17. My clinical findings support the need for the requested home health care services because: Deconditioned w/ increased weakness I certify that my clinical findings support that this patient is homebound because: Post-op weakness Shreya Franco Mar 12, 2017 10:50
[2017-03-12] MEDS: FERROUS SULFATE 325 MG (65 MG ELEMENTAL IRON) TAB PO SCH ×2 (11:23→18:23)
[2017-03-12] MEDS: METOPROLOL TARTRATE 25 MG TAB PO SCH ×2 (11:23→21:22)
--- NOTE | 2017-03-12 11:28 | HHI.PR ---
Subjective Remarks Follow-up for anemia, coronary artery disease Patient feels more tired today, still with symptoms output through [place]. No chest pain, no shortness of breath. Diuresing well, had atrial fibrillation yesterday, RVR. Blood pressure is better Objective Vitals Vital Signs Date Time Temp Pulse Resp B/P Pulse Ox O2 Delivery O2 Flow Rate FiO2 03/12/17 09:12 99 Nasal Cannula 3.00 03/12/17 08:26 98 03/12/17 07:20 98.6 94 18 106/60 100 03/12/17 07:00 89 03/12/17 04:00 92 03/12/17 03:33 98.6 80 18 105/62 99 03/12/17 03:33 99 Nasal Cannula 2.00 03/12/17 03:00 83 03/12/17 02:00 88 03/12/17 01:00 86 03/12/17 00:00 82 03/11/17 23:50 99 Nasal Cannula 2.00 03/11/17 23:50 99 Nasal Cannula 2.00 03/11/17 23:50 98.5 77 18 107/60 99 03/11/17 23:00 80 03/11/17 22:00 92 03/11/17 21:00 96 03/11/17 20:00 86 03/11/17 19:50 93 Nasal Cannula 2.00 03/11/17 19:30 99 Nasal Cannula 2.00 03/11/17 19:30 98.2 98 18 103/53 99 03/11/17 19:30 99 Nasal Cannula 2.00 03/11/17 19:00 98 03/11/17 17:59 110 105/54 03/11/17 15:06 95 Room Air 03/11/17 15:04 98.6 113 18 117/47 96 03/11/17 15:00 113 03/11/17 13:33 18 03/11/17 11:41 95 Room Air 03/11/17 11:39 98.3 82 18 125/50 96 I/O 03/11/17 03/11/17 03/11/17 03/12/17 03/12/17 03/12/17 06:59 14:59 22:59 06:59 14:59 22:59 Intake Total 815 ml 1294 ml 240 ml Output Total 350 ml 760 ml 410 ml Balance 465 ml 534 ml -170 ml Intake Oral 460 ml 960 ml 240 ml IV Total 355 ml 334 ml Output Urine Total 250 ml 700 ml 300 ml Chest Tube Drainage Total 100 ml 60 ml 110 ml # Voids 1 # Bowel Movements 0 0 Result Diagram: 03/11/17 0540 03/11/17 0540 Objective Remarks GENERAL: AOX3, NAD. On room air. SKIN: Warm and dry. EYES: No scleral icterus. No injection or drainage. CARDIOVASCULAR: Regular rate and rhythm without murmurs, gallops, or rubs. Chest tube in place with sanguinous output, sternal dressings in place. RESPIRATORY: Breath sounds equal bilaterally. No accessory muscle use. GASTROINTESTINAL: Abdomen soft, non-tender, nondistended. MUSCULOSKELETAL: No cyanosis, 1+ edema. BACK: Nontender without obvious deformity. No CVA tenderness. Alert, awake, oriented 3. Procedures Cardiac catheterization 03/05/2017 IMPRESSIONS 1. Multivessel coronary artery disease with significant stenosis of the ostial RCA, LAD diagonal bifurcation. 2. Chest pain, failing outpatient antianginal medications. 3. Recent drug-eluting stent placed in the ostium of the RCA with restenosis. RECOMMENDATIONS 1. Mr. Melchor appears to have multivessel coronary artery disease and the recommendation would be for CT Surgery evaluation. 2. I reviewed the films with Dr. Chua and plan would be for bypass of the RCA, LAD and diagonal with a consideration of the ramus. 3. We will obtain a 2-D echo to look at his overall left ventricular function, cardiac structure and possible valvopathies. 4. In anticipation of CT surgery, we will stop his Plavix. My concern is that he recently had a stent placed within the past 3 months and so he will be placed on a heparin drip 1 hour after the TR band is removed. 5. Further recommendations will be made based on the patient's hospital course. 03/09/17: CABG A/P Problem List: (1) Chest pain ICD Code: R07.9 Status: Acute (2) CAD (coronary artery disease) ICD Code: I25.10 Status: Acute (3) Hyperthyroidism ICD Code: E05.90 Status: Acute (4) HTN (hypertension) ICD Code: I10 Status: Chronic (5) HLD (hyperlipidemia) ICD Code: E78.5 Status: Chronic Assessment and Plan Mr. Melchor is a 76-year-old male with a past medical history of hypertension, hyperlipidemia, atrial fibrillation, CAD with ostial RCA stenting on Plavix and aspirin, diverticulitis, skin cancer and hyperthyroidism who presented to the ED on 03/05/2017 due to exertional chest pain. Patient was evaluated by cardiology and underwent LHC on 03/05/2017 which showed multivessel CAD. CABG was recommended. Multivessel Coronary artery disease on left heart cath on 03/05/2017, HNT, HLD - s/p LHC on 03/05/2017 --> Multivessel CAD with significant stenosis of the ostial RCA, LAD diagonal bifurcation. CT surgery consulted. s/p CABG 03/09/17. Dopamine and neosynephrine - 2D echo shows EF 55-60%, Moderate AR with valve area 2.47 cm^2. Continue Aspirin, Plavix, Lipitor, amiodarone. Lasix today, status post amiodarone bolus , magnesium sulfate. Symptomatic anemia-check iron studies, will give iron sucrose today. Follow CBC. Extremity swelling and edema- blood pressure stable, start Lasix. Also on indapamide. Atrial fibrillation - Focal, Cardizem stopped per cardiothoracic surgery. Previously on apixaban. Hyperthyroidism: Continue methimazole 5mg Qday. Hypokalemia-replaced Full code. Rinku Galindo MD Mar 12, 2017 11:16
--- NOTE | 2017-03-12 11:49 | EKG ---
Date Performed: 03/11/2017 Time Performed: 13:20:56 PTAGE: 76 years EKG: CONSIDER ACUTE ST ELEVATION CA Atrial fibrillation with rapid ventricular response Lateral ST elevation, CONSIDER ACUTE INFARCT Abnormal ECG NO PREVIOUS TRACING Compared to the previous tracing atrial fibrillation with RVR is new DOCTOR: Galdino Huang Interpretating Date/Time 03/12/2017 11:48:23
[2017-03-12 12:05] LABS: HEMATOCRIT 23.8 % (39.0-51.0); MEAN CORPUSCULAR HEMOGLOBIN 31.2 PG (27.0-34.0); MEAN CORPUSCULAR HGB CONC 33.6 % (32.0-36.0); PLATELET COUNT 123 TH/MM3 (150-450); RED BLOOD COUNT 2.56 MIL/MM3 (4.50-5.90); RED CELL DISTRIBUTION WIDTH 15.7 % (11.6-17.2); REVIEW FLAG FINAL; WHITE BLOOD COUNT 8.1 TH/MM3 (4.0-11.0)
[2017-03-12 12:23] LABS: BICARBONATE 26.9 MEQ/L (21.0-32.0); MAGNESIUM 2.4 MG/DL (1.5-2.5); POTASSIUM 4.4 MEQ/L (3.5-5.1)
[2017-03-12] MEDS: IRON SUCROSE INJ 100 MG in SODIUM CHLORIDE 0.9% INJ 100 ML IV SCH (13:08)
--- NOTE | 2017-03-12 18:52 | PD.CARD.PN ---
Subjective Subjective Remarks Pt without complaints Objective Medications Current Medications Medications (Trade) Dose Ordered Sig/Raymond Route Start Time Stop Time Status Last Admin (Zofran Inj) 4 mg Q6H PRN IVP 03/05/17 06:15 03/12/17 18:23 (Dulcolax Supp) 10 mg DAILY PRN RECTAL 03/05/17 06:15 (Lozol) 2.5 mg DAILY PO 03/05/17 09:00 Hold 03/12/17 08:40 (Tapazole) 5 mg DAILY PO 03/05/17 09:00 03/12/17 08:41 (Theragran) 1 tab DAILY PO 03/05/17 09:00 03/10/17 08:55 (Pill Splitter) 1 ea UNSCH PRN OTHER 03/05/17 06:45 (NS Flush) 2 ml BID IV FLUSH 03/05/17 21:00 03/12/17 08:45 (NS Flush) 2 ml UNSCH PRN IV FLUSH 03/05/17 13:45 (Lipitor) 80 mg HS PO 03/06/17 21:00 03/11/17 20:50 (Aspirin Chew) 81 mg DAILY PO 03/10/17 09:00 03/10/17 08:53 (Plavix) 75 mg DAILY PO 03/10/17 09:00 03/10/17 08:53 (Protonix) 40 mg DAILY@06 PO 03/10/17 06:00 03/12/17 06:00 (Cordarone) 400 mg Q12HR PO 03/09/17 21:00 03/12/17 08:44 (Tylenol) 650 mg Q4H PRN PO 03/09/17 12:00 03/11/17 03:20 ([place] 5-325 Mg) 1 tab Q3H PRN PO 03/09/17 12:00 03/11/17 20:49 ([place] 5-325 Mg) 2 tab Q3H PRN PO 03/09/17 12:00 03/12/17 11:39 (Apresoline Inj) 10 mg Q4H PRN IV 03/09/17 12:00 (D50w (Vial) Inj) 25 ml UNSCH PRN IV PUSH 03/09/17 12:00 (Colace) 100 mg BID PO 03/10/17 21:00 03/12/17 08:45 (Theragran M Tab) 1 tab DAILY PO 03/11/17 09:00 03/12/17 08:41 (Milk Of Magnesia Liq) 30 ml DAILY PO 03/11/17 09:00 03/11/17 08:15 (Miralax) 17 gm DAILY PO 03/11/17 09:00 03/11/17 08:15 (Senokot) 8.6 mg HS PO 03/10/17 21:00 03/10/17 21:15 (Fleets Enema (Adult)) 133 ml UNSCH PRN RECTAL 03/10/17 11:45 (D50w (Vial) Inj) 25 ml UNSCH PRN IV 03/10/17 11:45 (Glucagon Inj) 1 mg UNSCH PRN OTHER 03/10/17 11:45 (Chloraseptic Bertrand) 1 lozenge UNSCH PRN BUCCAL 03/10/17 12:30 03/10/17 15:40 (Ferrous Sulfate) 325 mg BID@12,17 PO 03/12/17 12:00 03/12/17 18:23 Metoprolol Tartrate 12.5 mg 12.5 mg Q12HR PO 03/12/17 12:00 03/12/17 11:23 (Venofer Inj/NS Inj) 105 ml @ 105 mls/hr DAILY IV 03/12/17 13:00 03/14/17 09:59 03/12/17 13:08 Vital Signs / I&O Vital Signs Date Time Temp Pulse Resp B/P Pulse Ox O2 Delivery O2 Flow Rate FiO2 03/12/17 16:08 88 03/12/17 15:58 98.2 100 18 120/72 98 03/12/17 15:53 98 Room Air 03/12/17 15:00 102 03/12/17 14:00 82 03/12/17 13:00 82 03/12/17 12:00 84 03/12/17 11:00 98.3 99 18 103/53 99 03/12/17 11:00 103 03/12/17 11:00 99 Room Air 03/12/17 10:00 106 03/12/17 09:12 99 Nasal Cannula 3.00 03/12/17 09:00 110 03/12/17 08:26 98 03/12/17 07:20 98.6 94 18 106/60 100 03/12/17 07:00 100 Nasal Cannula 2.00 03/12/17 07:00 89 03/12/17 04:00 92 03/12/17 03:33 98.6 80 18 105/62 99 03/12/17 03:33 99 Nasal Cannula 2.00 03/12/17 03:00 83 03/12/17 02:00 88 03/12/17 01:00 86 03/12/17 00:00 82 03/11/17 23:50 99 Nasal Cannula 2.00 03/11/17 23:50 99 Nasal Cannula 2.00 03/11/17 23:50 98.5 77 18 107/60 99 03/11/17 23:00 80 03/11/17 22:00 92 03/11/17 21:00 96 03/11/17 20:00 86 03/11/17 19:50 93 Nasal Cannula 2.00 03/11/17 19:30 99 Nasal Cannula 2.00 03/11/17 19:30 98.2 98 18 103/53 99 03/11/17 19:30 99 Nasal Cannula 2.00 03/11/17 19:00 98 I/O 03/11/17 03/11/17 03/11/17 03/12/17 03/12/17 03/12/17 07:00 15:00 23:00 07:00 15:00 23:00 Intake Total 815 ml 1294 ml 240 ml Output Total 350 ml 760 ml 410 ml Balance 465 ml 534 ml -170 ml Intake Oral 460 ml 960 ml 240 ml IV Total 355 ml 334 ml Output Urine Total 250 ml 700 ml 300 ml Chest Tube Drainage Total 100 ml 60 ml 110 ml # Voids 1 # Bowel Movements 0 0 Physical Exam GENERAL: Well developed, well nourished. No acute distress. HEENT: Jugular venous pressure is normal. CHEST: Lungs clear to auscultation bilaterally. Unlabored respiratory effort. CARDIAC: irregular rate and rhythm without S3, S4, or murmur. ABDOMEN: Soft, nontender, no hepatosplenomegaly. Bowel sounds present. EXTREMITIES: No clubbing, cyanosis, or edema. Laboratory Laboratory Tests Test 03/12/17 11:27 White Blood Count 8.1 TH/MM3 Red Blood Count 2.56 MIL/MM3 Hemoglobin 8.0 GM/DL Hematocrit 23.8 % Mean Corpuscular Volume 93.0 FL Mean Corpuscular Hemoglobin 31.2 PG Mean Corpuscular Hemoglobin 33.6 % Concent Red Cell Distribution Width 15.7 % Platelet Count 123 TH/MM3 Mean Platelet Volume 8.7 FL Sodium Level 137 MEQ/L Potassium Level 4.4 MEQ/L Chloride Level 104 MEQ/L Carbon Dioxide Level 26.9 MEQ/L Anion Gap 6 MEQ/L Blood Urea Nitrogen 23 MG/DL Creatinine 0.96 MG/DL Estimat Glomerular Filtration 77 ML/MIN Rate Random Glucose 129 MG/DL Calcium Level 7.9 MG/DL Magnesium Level 2.4 MG/DL Assessment and Plan Problem List: (1) Atrial fibrillation Assessment and Plan: s/p LA Ligation and modified MAZE with CABG -will need to resume Eliguis when chest tubes out and stop aspirin/plavix -Afib RVR last pm , s/p mag sulfate and amiodarone bolus remains on amiodarone - continue same for now avoid dehydration as this will exacerbate RVR (2) CAD (coronary artery disease) Assessment and Plan: s/p CABG and doing well -per CV surg (3) HTN (hypertension) (4) HLD (hyperlipidemia) (5) Blood loss anemia Natalie Hamilton MD Mar 12, 2017 18:51
[2017-03-12] MEDS: SENNOSIDES 8.6 MG TAB PO SCH (21:21)
[2017-03-12] MEDS: ATORVASTATIN 80 MG TAB PO SCH (21:21)
[2017-03-13] VITALS (30 sets, daily range): BP systolic 102–128; BP diastolic 50–80; PULSE 59–120; RESP 18–19; TEMP 97.9–98.8; O2SAT 95–100
[2017-03-13] MEDS: ACETAMINOPHEN/HYDROcodone 325 MG/5 MG TAB PO PRN (02:27)
[2017-03-13] MEDS: ONDANSETRON HCL 4 MG/2 ML VIAL IVP PRN ×2 (05:24→15:31)
[2017-03-13] MEDS: PANTOPRAZOLE SOD 40 MG DELAYED RELEASE TAB PO SCH (05:26)
--- NOTE | 2017-03-13 06:20 | RADRPT ---
EXAM DATE/TIME: 03/13/2017 04:59 [facility] COMPARISON: CHEST SINGLE AP, March 10, 2017, 4:08. INDICATIONS : Post chest tube removal. MEDICAL HISTORY : Hypertension. Myocardial infarction. A-fib. Coronary artery disease. SURGICAL HISTORY : Coronary artery stent. CABG. Cardiac catheterization. ENCOUNTER: Subsequent ACUITY: 1 week PAIN SCORE: Non-responsive. LOCATION: Bilateral chest FINDINGS: A single view of the chest demonstrates interval removal of the left chest tube. Bilateral lower lobe there is consolidation left greater than right. Numerous sternal wires and a very tortuous aorta. He art remains enlarged. No visible pneumothorax. Osseous structures are intact. CONCLUSION: Left chest tube has been removed. Persistent consolidation left lung base without pneumothorax. Nader Markham MD on March 13, 2017 at 6:17 Board Certified Radiologist. This report was verified electronically.
[2017-03-13] MEDS: SODIUM CHLORIDE 0.9% FLUSH 10 ML FLUSH IV FLUSH SCH ×2 (08:18→21:00)
[2017-03-13] MEDS: IRON SUCROSE INJ 100 MG in SODIUM CHLORIDE 0.9% INJ 100 ML IV SCH (08:18)
[2017-03-13] MEDS: POLYETHYLENE GLYCOL 17 GM PKG PO SCH (08:19)
[2017-03-13] MEDS: METOPROLOL TARTRATE 25 MG TAB PO SCH ×2 (08:19→21:00)
[2017-03-13] MEDS: MAGNESIUM HYDROXIDE SUSP 30 ML CUP PO SCH (08:19)
[2017-03-13] MEDS: AMIODARONE 200 MG TAB PO SCH (08:20)
[2017-03-13] MEDS: METHIMAZOLE 5 MG TAB PO SCH (08:20)
[2017-03-13] MEDS: ASPIRIN 81 MG CHEW TAB PO SCH (08:21)
[2017-03-13] MEDS: DOCUSATE SODIUM 100 MG CAP PO SCH ×2 (08:21→21:00)
[2017-03-13] MEDS: MULTIVITAMINS/MINERALS THERAPEUTIC TAB PO SCH (08:21)
[2017-03-13] MEDS: MULTIVITAMIN TAB PO SCH (08:21)
[2017-03-13] MEDS: ACETAMINOPHEN 325 MG TAB PO PRN ×2 (08:24→12:31)
--- NOTE | 2017-03-13 08:37 | HHI.PR ---
Subjective Remarks Follow-up for shortness of breath Chest tube out, shortness of breath better, no chest pain other than surgical pain. Still hasn't had a bowel movement. Did not sleep well last night. Objective Vitals Vital Signs Date Time Temp Pulse Resp B/P Pulse Ox O2 Delivery O2 Flow Rate FiO2 03/13/17 08:31 95 21 03/13/17 04:30 98.8 87 18 116/59 99 03/13/17 03:40 99 Room Air 03/13/17 03:00 86 03/13/17 02:00 82 03/13/17 01:00 86 03/13/17 00:40 98.4 87 18 102/70 99 03/13/17 00:40 99 Room Air 03/13/17 00:00 80 03/12/17 23:00 79 03/12/17 22:25 18 03/12/17 22:00 86 03/12/17 21:49 98 21 03/12/17 21:00 92 03/12/17 20:00 78 03/12/17 19:30 99 Room Air 03/12/17 19:30 98.4 81 18 114/54 99 03/12/17 19:00 82 03/12/17 16:08 88 03/12/17 15:58 98.2 100 18 120/72 98 03/12/17 15:53 98 Room Air 03/12/17 15:00 102 03/12/17 14:00 82 03/12/17 13:00 82 03/12/17 12:00 84 03/12/17 11:00 98.3 99 18 103/53 99 03/12/17 11:00 103 03/12/17 11:00 99 Room Air 03/12/17 10:00 106 03/12/17 09:12 99 Nasal Cannula 3.00 03/12/17 09:00 110 I/O 03/12/17 03/12/17 03/12/17 03/13/17 03/13/17 03/13/17 07:00 15:00 23:00 07:00 15:00 23:00 Intake Total 240 ml 1045 ml 480 ml Output Total 410 ml 1350 ml 200 ml Balance -170 ml -305 ml 280 ml Intake Oral 240 ml 920 ml 480 ml IV Total 125 ml Output Urine Total 300 ml 1350 ml 200 ml Chest Tube Drainage Total 110 ml # Voids 1 2 Result Diagram: 03/12/17 1127 03/12/17 1127 Objective Remarks GENERAL: AOX3, NAD. On room air. SKIN: Warm and dry. EYES: No scleral icterus. No injection or drainage. CARDIOVASCULAR: Regular rate and rhythm without murmurs, gallops, or rubs. RESPIRATORY: Breath sounds equal bilaterally. No accessory muscle use. GASTROINTESTINAL: Abdomen soft, non-tender, nondistended. MUSCULOSKELETAL: No cyanosis, 1+ edema. BACK: Nontender without obvious deformity. No CVA tenderness. Alert, awake, oriented 3. Procedures Cardiac catheterization 03/05/2017 IMPRESSIONS 1. Multivessel coronary artery disease with significant stenosis of the ostial RCA, LAD diagonal bifurcation. 2. Chest pain, failing outpatient antianginal medications. 3. Recent drug-eluting stent placed in the ostium of the RCA with restenosis. RECOMMENDATIONS 1. Mr. Melchor appears to have multivessel coronary artery disease and the recommendation would be for CT Surgery evaluation. 2. I reviewed the films with Dr. Chua and plan would be for bypass of the RCA, LAD and diagonal with a consideration of the ramus. 3. We will obtain a 2-D echo to look at his overall left ventricular function, cardiac structure and possible valvopathies. 4. In anticipation of CT surgery, we will stop his Plavix. My concern is that he recently had a stent placed within the past 3 months and so he will be placed on a heparin drip 1 hour after the TR band is removed. 5. Further recommendations will be made based on the patient's hospital course. 03/09/17: CABG A/P Problem List: (1) Chest pain ICD Code: R07.9 Status: Acute (2) CAD (coronary artery disease) ICD Code: I25.10 Status: Acute (3) Hyperthyroidism ICD Code: E05.90 Status: Acute (4) HTN (hypertension) ICD Code: I10 Status: Chronic (5) HLD (hyperlipidemia) ICD Code: E78.5 Status: Chronic Assessment and Plan Mr. Melchor is a 76-year-old male with a past medical history of hypertension, hyperlipidemia, atrial fibrillation, CAD with ostial RCA stenting on Plavix and aspirin, diverticulitis, skin cancer and hyperthyroidism who presented to the ED on 03/05/2017 due to exertional chest pain. Patient was evaluated by cardiology and underwent LHC on 03/05/2017 which showed multivessel CAD. CABG was recommended. Multivessel Coronary artery disease on left heart cath on 03/05/2017, HNT, HLD - s/p LHC on 03/05/2017 --> Multivessel CAD with significant stenosis of the ostial RCA, LAD diagonal bifurcation. CT surgery consulted. s/p CABG 03/09/17. Dopamine and neosynephrine - 2D echo shows EF 55-60%, Moderate AR with valve area 2.47 cm^2. Continue Aspirin, Plavix, Lipitor, amiodarone. Awaiting BMP today, we'll give her a dose of Lasix if BMP stable. Symptomatic anemia-check iron studies, continue iron sucrose, hemoglobin is stable, minimize CBC. Constipation-add magnesium citrate, on MiraLAX and magnesium hydroxide. Extremity swelling and edema- blood pressure stable, Lasix as needed. Also on indapamide. Recheck BMP tomorrow. Atrial fibrillation - Focal, Cardizem stopped per cardiothoracic surgery. Previously on apixaban. Hyperthyroidism: Continue methimazole 5mg Qday. Hypokalemia-replaced Full code. Rinku Galindo MD Mar 13, 2017 08:37
[2017-03-13] MEDS ORDERED: MAGNESIUM CITRATE SOLN 300 ML BTL PO PRN (08:45)
[2017-03-13 09:30] LABS: AUTOMATED NEUTROPHIL # 5.4 TH/MM3 (1.8-7.7); BASOPHIL % 0.4 % (0.0-2.0); EOSINOPHIL # 0.1 TH/MM3 (0-0.4); HEMATOCRIT 24.9 % (39.0-51.0); HEMO FLAGS DIFF FINAL; LYMPH % 13.1 % (9.0-44.0); LYMPHOCYTE # 0.9 TH/MM3 (1.0-4.8); MEAN CELL VOLUME 93.3 FL (80.0-100.0); MEAN CORPUSCULAR HEMOGLOBIN 31.3 PG (27.0-34.0); MEAN CORPUSCULAR HGB CONC 33.6 % (32.0-36.0); MONO % 6.3 % (0.0-8.0); NEUT % 78.2 % (16.0-70.0); PLATELET COUNT 170 TH/MM3 (150-450); RED BLOOD COUNT 2.67 MIL/MM3 (4.50-5.90); RED CELL DISTRIBUTION WIDTH 15.9 % (11.6-17.2); WHITE BLOOD COUNT 6.9 TH/MM3 (4.0-11.0)
[2017-03-13 10:05] LABS: BICARBONATE 29.1 MEQ/L (21.0-32.0); POTASSIUM 3.6 MEQ/L (3.5-5.1)
--- NOTE | 2017-03-13 10:07 | PD.CARD.PN ---
Subjective Subjective Remarks PT c/o nausea Objective Medications Current Medications Medications (Trade) Dose Ordered Sig/Raymond Route Start Time Stop Time Status Last Admin (Zofran Inj) 4 mg Q6H PRN IVP 03/05/17 06:15 03/13/17 05:24 (Dulcolax Supp) 10 mg DAILY PRN RECTAL 03/05/17 06:15 (Lozol) 2.5 mg DAILY PO 03/05/17 09:00 Hold 03/12/17 08:40 (Tapazole) 5 mg DAILY PO 03/05/17 09:00 03/13/17 08:20 (Theragran) 1 tab DAILY PO 03/05/17 09:00 03/13/17 08:21 (Pill Splitter) 1 ea UNSCH PRN OTHER 03/05/17 06:45 (NS Flush) 2 ml BID IV FLUSH 03/05/17 21:00 03/13/17 08:18 (NS Flush) 2 ml UNSCH PRN IV FLUSH 03/05/17 13:45 (Lipitor) 80 mg HS PO 03/06/17 21:00 03/12/17 21:21 (Aspirin Chew) 81 mg DAILY PO 03/10/17 09:00 03/13/17 08:21 (Protonix) 40 mg DAILY@06 PO 03/10/17 06:00 03/13/17 05:26 (Cordarone) 400 mg Q12HR PO 03/09/17 21:00 03/13/17 08:20 (Tylenol) 650 mg Q4H PRN PO 03/09/17 12:00 03/13/17 08:24 ([place] 5-325 Mg) 1 tab Q3H PRN PO 03/09/17 12:00 03/11/17 20:49 ([place] 5-325 Mg) 2 tab Q3H PRN PO 03/09/17 12:00 03/13/17 02:27 (Apresoline Inj) 10 mg Q4H PRN IV 03/09/17 12:00 (D50w (Vial) Inj) 25 ml UNSCH PRN IV PUSH 03/09/17 12:00 (Colace) 100 mg BID PO 03/10/17 21:00 03/13/17 08:21 (Theragran M Tab) 1 tab DAILY PO 03/11/17 09:00 03/12/17 08:41 (Milk Of Magnesia Liq) 30 ml DAILY PO 03/11/17 09:00 03/13/17 08:19 (Miralax) 17 gm DAILY PO 03/11/17 09:00 03/13/17 08:19 (Senokot) 8.6 mg HS PO 03/10/17 21:00 03/12/17 21:21 (Fleets Enema (Adult)) 133 ml UNSCH PRN RECTAL 03/10/17 11:45 (D50w (Vial) Inj) 25 ml UNSCH PRN IV 03/10/17 11:45 (Glucagon Inj) 1 mg UNSCH PRN OTHER 03/10/17 11:45 (Chloraseptic Bertrand) 1 lozenge UNSCH PRN BUCCAL 03/10/17 12:30 03/10/17 15:40 (Ferrous Sulfate) 325 mg BID@12,17 PO 03/12/17 12:00 03/12/17 18:23 Metoprolol Tartrate 12.5 mg 12.5 mg Q12HR PO 03/12/17 12:00 03/13/17 08:19 (Venofer Inj/NS Inj) 105 ml @ 105 mls/hr DAILY IV 03/12/17 13:00 03/14/17 09:59 03/13/17 08:18 (Citroma Liq) 150 ml ONCE PRN PO 03/13/17 08:45 03/14/17 08:44 Vital Signs / I&O Vital Signs Date Time Temp Pulse Resp B/P Pulse Ox O2 Delivery O2 Flow Rate FiO2 03/13/17 09:50 98 Room Air 03/13/17 08:31 95 21 03/13/17 07:00 97.9 104 19 128/80 98 03/13/17 04:30 98.8 87 18 116/59 99 03/13/17 03:40 99 Room Air 03/13/17 03:00 86 03/13/17 02:00 82 03/13/17 01:00 86 03/13/17 00:40 98.4 87 18 102/70 99 03/13/17 00:40 99 Room Air 03/13/17 00:00 80 03/12/17 23:00 79 03/12/17 22:25 18 03/12/17 22:00 86 03/12/17 21:49 98 21 03/12/17 21:00 92 03/12/17 20:00 78 03/12/17 19:30 99 Room Air 03/12/17 19:30 98.4 81 18 114/54 99 03/12/17 19:00 82 03/12/17 16:08 88 03/12/17 15:58 98.2 100 18 120/72 98 03/12/17 15:53 98 Room Air 03/12/17 15:00 102 03/12/17 14:00 82 03/12/17 13:00 82 03/12/17 12:00 84 03/12/17 11:00 98.3 99 18 103/53 99 03/12/17 11:00 103 03/12/17 11:00 99 Room Air I/O 03/12/17 03/12/17 03/12/17 03/13/17 03/13/17 03/13/17 07:00 15:00 23:00 07:00 15:00 23:00 Intake Total 240 ml 1045 ml 480 ml Output Total 410 ml 1350 ml 200 ml Balance -170 ml -305 ml 280 ml Intake Oral 240 ml 920 ml 480 ml IV Total 125 ml Output Urine Total 300 ml 1350 ml 200 ml Chest Tube Drainage Total 110 ml # Voids 1 2 Physical Exam GENERAL: Well developed, well nourished. No acute distress. HEENT: Jugular venous pressure is normal. CHEST: Lungs clear to auscultation bilaterally. Unlabored respiratory effort. CARDIAC: irregular rate and rhythm without S3, S4, or murmur. ABDOMEN: Soft, nontender, no hepatosplenomegaly. Bowel sounds present. EXTREMITIES: No clubbing, cyanosis, or edema. Laboratory Laboratory Tests Test 03/12/17 03/13/17 11:27 08:45 White Blood Count 8.1 TH/MM3 6.9 TH/MM3 Red Blood Count 2.56 MIL/MM3 2.67 MIL/MM3 Hemoglobin 8.0 GM/DL 8.4 GM/DL Hematocrit 23.8 % 24.9 % Mean Corpuscular Volume 93.0 FL 93.3 FL Mean Corpuscular Hemoglobin 31.2 PG 31.3 PG Mean Corpuscular Hemoglobin 33.6 % 33.6 % Concent Red Cell Distribution Width 15.7 % 15.9 % Platelet Count 123 TH/MM3 170 TH/MM3 Mean Platelet Volume 8.7 FL 8.5 FL Sodium Level 137 MEQ/L 137 MEQ/L Potassium Level 4.4 MEQ/L 3.6 MEQ/L Chloride Level 104 MEQ/L 100 MEQ/L Carbon Dioxide Level 26.9 MEQ/L 29.1 MEQ/L Anion Gap 6 MEQ/L 8 MEQ/L Blood Urea Nitrogen 23 MG/DL 24 MG/DL Creatinine 0.96 MG/DL 1.03 MG/DL Estimat Glomerular Filtration 77 ML/MIN 71 ML/MIN Rate Random Glucose 129 MG/DL 142 MG/DL Calcium Level 7.9 MG/DL 8.0 MG/DL Magnesium Level 2.4 MG/DL Neutrophils (%) (Auto) 78.2 % Lymphocytes (%) (Auto) 13.1 % Monocytes (%) (Auto) 6.3 % Eosinophils (%) (Auto) 2.0 % Basophils (%) (Auto) 0.4 % Neutrophils # (Auto) 5.4 TH/MM3 Lymphocytes # (Auto) 0.9 TH/MM3 Monocytes # (Auto) 0.4 TH/MM3 Eosinophils # (Auto) 0.1 TH/MM3 Basophils # (Auto) 0.0 TH/MM3 CBC Comment DIFF FINAL Differential Comment Assessment and Plan Problem List: (1) Atrial fibrillation Assessment and Plan: s/p LA Ligation and modified MAZE with CABG -will need to resume Eliguis and stop aspirin/plavix -Afib RVR last pm , s/p mag sulfate and amiodarone bolus remains on amiodarone - change to 200 mg a day avoid dehydration as this will exacerbate RVR (2) CAD (coronary artery disease) (3) HTN (hypertension) (4) HLD (hyperlipidemia) (5) Blood loss anemia Natalie Hamilton MD Mar 13, 2017 10:07
[2017-03-13] MEDS ORDERED: FUROSEMIDE 20 MG/2 ML VIAL IV PUSH ONE (10:15)
[2017-03-13] MEDS ORDERED: POTASSIUM CHLORIDE 25 MEQ EFFERVESCENT TAB PO ONE (10:15)
[2017-03-13 10:41] LABS: TRANSFERRIN IRON PROFILE 162 MG/DL (200-360)
[2017-03-13] MEDS: FERROUS SULFATE 325 MG (65 MG ELEMENTAL IRON) TAB PO SCH ×2 (12:22→17:00)
--- NOTE | 2017-03-13 14:05 | PD.CAR.PN ---
CVT Progress Note CVT: POD #: 4 Subjective/Hospital Course: 76/ male HX CAD unstable angina , recent SARAH to ostial RCA in 11/10, did well initial 3 months then developed recurrent chest pain about 3 weeks ago , underwent nuclear stress testing 02/23 which showed anteroseptal ischemia . Underwent cardiac cath by Dr Nation 03/05 90% mid /distal LAD, 70% diagonal, RCA 95%, ramus 60% EF 55%, ECH showed mod AI pt had been on plavix at home, last dose 03/05/17 PMH : CAD, HTN, HLP Afib, skin cancer, hyperthyroidism 03/06 pt currently pain free, on Heparin gtt PRU 187 scheduled for surgery on Sunday on statin and ASA 03/07 doing well no complaints scheduled for surgery on Thursday 03/08 stable for surgery tomorrow on room air, no chest pain 03/09/17 No complaints. Still on dopamine and Heber at significant dose. Weight up quite a bit also. 03/11/17 No complaints. Progressing well Off inotropes 03/12 on nasal cannula in afib rate controlled/ will need to restart eliquis once chest tubes out HGB 8 03/11, recheck lab today dc cardizem, add BB / on amiodarone continue wean 02 03/13 had some nausea this am, while recieving IV iron, occurred prior to eating breakfast remain in afib , rate controlled, restarted on Eliquis ASA/ Plavix stopped per Cardiology eval for dc home tomorrow, additional Gi motility meds for BM given Objective: GENERAL: SKIN: Warm and dry. prevena to chest , leg incision intact HEAD: Normocephalic. EYES: No scleral icterus. No injection or drainage. NECK: Supple, trachea midline. No JVD or lymphadenopathy. CARDIOVASCULAR: Regular rate and rhythm without murmurs, gallops, or rubs. RESPIRATORY: Breath sounds equal bilaterally. No accessory muscle use. GASTROINTESTINAL: Abdomen soft, non-tender, nondistended. MUSCULOSKELETAL: No cyanosis, or edema. BACK: Nontender without obvious deformity. No CVA tenderness. Vital Signs Date Time Temp Pulse Resp B/P Pulse Ox O2 Delivery O2 Flow Rate FiO2 03/13/17 12:45 98 03/13/17 12:00 98.6 84 18 106/60 99 03/13/17 11:30 99 Room Air 03/13/17 11:00 77 03/13/17 10:08 96 03/13/17 09:50 98 Room Air 03/13/17 09:00 102 03/13/17 08:31 95 21 03/13/17 08:00 96 03/13/17 07:00 91 03/13/17 07:00 97.9 104 19 128/80 98 03/13/17 04:30 98.8 87 18 116/59 99 03/13/17 03:40 99 Room Air 03/13/17 03:00 86 03/13/17 02:00 82 03/13/17 01:00 86 03/13/17 00:40 98.4 87 18 102/70 99 03/13/17 00:40 99 Room Air 03/13/17 00:00 80 03/12/17 23:00 79 03/12/17 22:25 18 03/12/17 22:00 86 03/12/17 21:49 98 21 03/12/17 21:00 92 03/12/17 20:00 78 03/12/17 19:30 99 Room Air 03/12/17 19:30 98.4 81 18 114/54 99 03/12/17 19:00 82 03/12/17 16:08 88 03/12/17 15:58 98.2 100 18 120/72 98 03/12/17 15:53 98 Room Air 03/12/17 15:00 102 03/12/17 14:00 82 Labs: Laboratory Tests Test 03/13/17 08:45 White Blood Count 6.9 TH/MM3 (4.0-11.0) Red Blood Count 2.67 MIL/MM3 (4.50-5.90) Hemoglobin 8.4 GM/DL (13.0-17.0) Hematocrit 24.9 % (39.0-51.0) Mean Corpuscular Volume 93.3 FL (80.0-100.0) Mean Corpuscular Hemoglobin 31.3 PG (27.0-34.0) Mean Corpuscular Hemoglobin 33.6 % Concent (32.0-36.0) Red Cell Distribution Width 15.9 % (11.6-17.2) Platelet Count 170 TH/MM3 (150-450) Mean Platelet Volume 8.5 FL (7.0-11.0) Neutrophils (%) (Auto) 78.2 % (16.0-70.0) Lymphocytes (%) (Auto) 13.1 % (9.0-44.0) Monocytes (%) (Auto) 6.3 % (0.0-8.0) Eosinophils (%) (Auto) 2.0 % (0.0-4.0) Basophils (%) (Auto) 0.4 % (0.0-2.0) Neutrophils # (Auto) 5.4 TH/MM3 (1.8-7.7) Lymphocytes # (Auto) 0.9 TH/MM3 (1.0-4.8) Monocytes # (Auto) 0.4 TH/MM3 (0-0.9) Eosinophils # (Auto) 0.1 TH/MM3 (0-0.4) Basophils # (Auto) 0.0 TH/MM3 (0-0.2) CBC Comment DIFF FINAL Differential Comment Sodium Level 137 MEQ/L (136-145) Potassium Level 3.6 MEQ/L (3.5-5.1) Chloride Level 100 MEQ/L (98-107) Carbon Dioxide Level 29.1 MEQ/L (21.0-32.0) Anion Gap 8 MEQ/L (5-15) Blood Urea Nitrogen 24 MG/DL (7-18) Creatinine 1.03 MG/DL (0.60-1.30) Estimat Glomerular Filtration 71 ML/MIN (>89) Rate Random Glucose 142 MG/DL (74-106) Calcium Level 8.0 MG/DL (8.5-10.1) Iron Level 36 MCG/DL (65-175) Total Iron Binding Capacity 227 MCG/DL (250-450) Percent Iron Saturation 15.9 % (20-50) Result Diagram: 03/13/17 0845 03/13/17 0845 Telemetry: afib / rate controlled (1) Atrial fibrillation Plan: s/p LA Ligation and modified MAZE with CABG Eliguis and stop aspirin/plavix remains on amiodarone - change to 200 mg a day avoid dehydration as this will exacerbate RVR (2) S/P CABG x 3 Plan: ASA / PLavix stopped / 2/2 restarting on Eliquis on statin , BB, amiodarone on gentle diuresis additional Gi motility meds given eval for dc home in am continue pulm toileting OOB/ ambulate (3) CAD (coronary artery disease) (4) HTN (hypertension) Plan: controlled (5) HLD (hyperlipidemia) Plan: on statin (6) Blood loss anemia Plan: on IV iron and po / HGB 8.4 Shreya Franco Mar 13, 2017 14:04
[2017-03-13] MEDS: APIXABAN 5 MG TABLET PO SCH (21:00)
[2017-03-13] MEDS: SENNOSIDES 8.6 MG TAB PO SCH (21:00)
[2017-03-13] MEDS: ATORVASTATIN 80 MG TAB PO SCH (21:00)
[2017-03-14] VITALS (15 sets, daily range): BP systolic 119–137; BP diastolic 57–70; PULSE 54–70; RESP 18; TEMP 98.6–98.8; O2SAT 98–99
[2017-03-14] MEDS: ACETAMINOPHEN 325 MG TAB PO PRN ×2 (03:27→08:24)
[2017-03-14] MEDS: PANTOPRAZOLE SOD 40 MG DELAYED RELEASE TAB PO SCH (05:56)
[2017-03-14 07:16] LABS: BICARBONATE 30.2 MEQ/L (21.0-32.0)
[2017-03-14] MEDS: SODIUM CHLORIDE 0.9% FLUSH 10 ML FLUSH IV FLUSH SCH (08:24)
[2017-03-14] MEDS: IRON SUCROSE INJ 100 MG in SODIUM CHLORIDE 0.9% INJ 100 ML IV SCH (08:24)
[2017-03-14] MEDS: MULTIVITAMINS/MINERALS THERAPEUTIC TAB PO SCH (08:25)
[2017-03-14] MEDS: APIXABAN 5 MG TABLET PO SCH (08:25)
[2017-03-14] MEDS: METHIMAZOLE 5 MG TAB PO SCH (08:26)
[2017-03-14] MEDS: DOCUSATE SODIUM 100 MG CAP PO SCH (08:26)
[2017-03-14] MEDS: METOPROLOL TARTRATE 25 MG TAB PO SCH (08:26)
[2017-03-14] MEDS: MULTIVITAMIN TAB PO SCH (08:30)
[2017-03-14] MEDS: MAGNESIUM HYDROXIDE SUSP 30 ML CUP PO SCH (08:30)
[2017-03-14] MEDS: POLYETHYLENE GLYCOL 17 GM PKG PO SCH (08:30)
[2017-03-14] MEDS ORDERED: AMIODARONE 200 MG TAB PO SCH (09:00)
[2017-03-14] MEDS ORDERED: DOCU1CAP39 PO (10:01)
[2017-03-14] MEDS ORDERED: APIX5TAB PO (10:01)
[2017-03-14] MEDS ORDERED: POLY17S PO (10:01)
[2017-03-14] MEDS ORDERED: FERR325T PO (10:01)
[2017-03-14] MEDS ORDERED: ATOR1TAB18 PO (10:01)
[2017-03-14] MEDS ORDERED: PANT40TA3 PO (10:01)
[2017-03-14] MEDS ORDERED: AMIO200T PO (10:01)
--- NOTE | 2017-03-14 10:11 | HHI.PR ---
Subjective Remarks Patient says he is feeling well. Constipation has resolved. He denies any change in postoperative chest pain. Denies any shortness of breath. Denies any abdominal pain. Says he feels Like going home. Objective Vital Signs Date Time Temp Pulse Resp B/P Pulse Ox O2 Delivery O2 Flow Rate FiO2 03/14/17 09:19 70 03/14/17 08:38 98 21 03/14/17 08:14 65 03/14/17 07:30 98.7 64 18 119/57 98 03/14/17 07:00 55 03/14/17 05:00 60 03/14/17 04:23 98.6 67 18 137/70 99 03/14/17 04:00 60 03/14/17 03:00 60 03/14/17 02:00 60 03/14/17 01:00 58 03/14/17 00:00 54 03/13/17 23:01 98.6 61 18 104/53 99 03/13/17 23:01 99 Room Air 03/13/17 23:00 60 03/13/17 22:00 62 03/13/17 21:49 98 21 03/13/17 21:00 76 03/13/17 20:00 62 03/13/17 19:30 99 Room Air 03/13/17 19:30 98.7 70 18 102/50 99 03/13/17 19:00 65 03/13/17 18:02 61 03/13/17 17:02 59 03/13/17 16:03 65 03/13/17 15:48 98.3 65 19 112/60 100 03/13/17 15:48 100 Room Air 03/13/17 15:30 63 03/13/17 15:00 120 03/13/17 14:00 88 03/13/17 13:00 92 03/13/17 12:45 98 03/13/17 12:00 98.6 84 18 106/60 99 03/13/17 11:30 99 Room Air 03/13/17 11:00 77 I/O 03/13/17 03/13/17 03/13/17 03/14/17 03/14/17 03/14/17 07:00 15:00 23:00 07:00 15:00 23:00 Intake Total 480 ml 1025 ml 720 ml Output Total 200 ml 300 ml Balance 280 ml 725 ml 720 ml Intake Oral 480 ml 920 ml 720 ml IV Total 105 ml Output Urine Total 200 ml 300 ml # Voids 2 5 2 # Bowel Movements 4 Result Diagram: 03/13/17 0845 03/14/17 0601 Objective Remarks GENERAL: Patient walking in room with walker. Later sitting in chair. Appears comfortable. Alert and oriented 3. SKIN: Warm and dry. HEAD: Normocephalic. EYES: No scleral icterus. No injection or drainage. NECK: Supple, trachea midline. No JVD. CARDIOVASCULAR: Regular rate and rhythm without murmurs, gallops, or rubs. Chest postoperative incision dressed with drain in place. RESPIRATORY: Breath sounds equal bilaterally. No accessory muscle use. GASTROINTESTINAL: Abdomen soft, non-tender, nondistended. MUSCULOSKELETAL: No cyanosis. Trace peripheral edema. No erythema. BACK: Nontender without obvious deformity. No CVA tenderness. A/P Assessment and Plan Mr. Melchor is a 76-year-old male with a past medical history of hypertension, hyperlipidemia, atrial fibrillation, CAD with ostial RCA stenting on Plavix and aspirin, diverticulitis, skin cancer and hyperthyroidism who presented to the ED on 03/05/2017 due to exertional chest pain. Patient was evaluated by cardiology and underwent LHC on 03/05/2017 which showed multivessel CAD. CABG was recommended. //Multivessel Coronary artery disease on left heart cath on 03/05/2017, HNT, HLD - s/p LHC on 03/05/2017 --> Multivessel CAD with significant stenosis of the ostial RCA, LAD diagonal bifurcation. CT surgery consulted. s/p CABG 03/09/17. Dopamine and neosynephrine - 2D echo shows EF 55-60%, Moderate AR with valve area 2.47 cm^2. Continue Aspirin, Plavix, Lipitor, amiodarone. Awaiting BMP today, we'll give her a dose of Lasix if BMP stable. = 03/14 Patient doing well. Blood pressure stable off of losartan, indapamide. We'll hold this at discharge. Follow-up with cardiology, cardiovascular surgery as outpatient. //Symptomatic anemia-check iron studies, continue iron sucrose, hemoglobin is stable, minimize CBC. -03/14 Status post 2 bags of IV iron. Continue by mouth iron at home. Laxatives daily for prevention of constipation. //Constipation-add magnesium citrate, on MiraLAX and magnesium hydroxide. = 03/14. Resolved. //Extremity swelling and edema- blood pressure stable, Lasix as needed. Also on indapamide. Recheck BMP tomorrow. -Blood pressure and edema under control without indapamide. We'll discharge home with 2 L fluid restrictions. Follow up cardiology as outpatient. //Atrial fibrillation - Cardizem stopped per cardiothoracic surgery. Status post Maze procedure. Previously on apixaban. = 03/14. Her rate controlled on amiodarone. We'll discharge home with metoprolol, amiodarone. Amiodarone to be tapered by cardiology. //Hyperthyroidism: Continue methimazole 5mg Qday. //Resolved after replacement. Full code. Discharge Planning Discharge home today with home health. Follow-up cardiology, cardiothoracic surgery, primary care. Walker Zamorano MD Mar 14, 2017 10:11
--- NOTE | 2017-03-14 10:13 | HHI.DS ---
Discharge Summary Admission Date Mar 05, 2017 at 14:30 Discharge Date: Mar 14, 2017 Admitting Diagnosis chest pain (1) Chest pain ICD Code: R07.9 (2) CAD (coronary artery disease) ICD Code: I25.10 (3) Hyperthyroidism ICD Code: E05.90 (4) HTN (hypertension) ICD Code: I10 (5) HLD (hyperlipidemia) ICD Code: E78.5 Procedures Cardiac catheterization 03/05/2017 IMPRESSIONS 1. Multivessel coronary artery disease with significant stenosis of the ostial RCA, LAD diagonal bifurcation. 2. Chest pain, failing outpatient antianginal medications. 3. Recent drug-eluting stent placed in the ostium of the RCA with restenosis. RECOMMENDATIONS 1. Mr. Melchor appears to have multivessel coronary artery disease and the recommendation would be for CT Surgery evaluation. 2. I reviewed the films with Dr. Chua and plan would be for bypass of the RCA, LAD and diagonal with a consideration of the ramus. 3. We will obtain a 2-D echo to look at his overall left ventricular function, cardiac structure and possible valvopathies. 4. In anticipation of CT surgery, we will stop his Plavix. My concern is that he recently had a stent placed within the past 3 months and so he will be placed on a heparin drip 1 hour after the TR band is removed. 5. Further recommendations will be made based on the patient's hospital course. 03/09/17: CABG. Please see operative report. Brief History - From Admission Mr. Melchor is a 76-year-old male with a past medical history of hypertension, hyperlipidemia, atrial fibrillation, CAD with ostial RCA stenting on Plavix and aspirin, diverticulitis, skin cancer and hyperthyroidism. Patient presented to the ED with intermittent chest pain occurring with exertion for the past two and a half weeks, no associated symptoms of nausea, vomiting, or diaphoresis. He states that the pain would occur in the right anterior chest during activity , occurring only several seconds and is relieved with rest. Denies any need or use of nitrates. Patient did present in October with similar complaints of chest pain and underwent stenting of his ostial RCA. He does state that the chest pain had resolved for several months up until a couple weeks ago when he presented for similar symptoms and underwent a nuclear stress test. At that time , stress test was positive with anterior ischemia. Dr. Hamilton and patient decided to optimize medical management at that time and was started on Isosorbide. Denies any associated fever, chills, nausea or vomiting. At this time, patient is s/p cardiac catheterization today showing multivessel coronary artery disease with significant stenosis of the ostial RCA, LAD diagonal bifurcation. CT surgery consultation ordered. Pain is relatively controlled. No new complaints. CBC/BMP: 03/13/17 0845 03/14/17 0601 Significant Findings Laboratory Tests Test 03/12/17 03/13/17 03/14/17 11:27 08:45 06:01 Red Blood Count 2.56 MIL/MM3 2.67 MIL/MM3 (4.50-5.90) (4.50-5.90) Hemoglobin 8.0 GM/DL 8.4 GM/DL (13.0-17.0) (13.0-17.0) Hematocrit 23.8 % 24.9 % (39.0-51.0) (39.0-51.0) Platelet Count 123 TH/MM3 (150-450) Blood Urea Nitrogen 23 MG/DL (7-18) 24 MG/DL (7-18) 24 MG/DL (7-18) Estimat Glomerular Filtration 77 ML/MIN (>89) 71 ML/MIN (>89) 70 ML/MIN (>89) Rate Random Glucose 129 MG/DL 142 MG/DL 128 MG/DL (74-106) (74-106) (74-106) Calcium Level 7.9 MG/DL 8.0 MG/DL 7.9 MG/DL (8.5-10.1) (8.5-10.1) (8.5-10.1) Neutrophils (%) (Auto) 78.2 % (16.0-70.0) Lymphocytes # (Auto) 0.9 TH/MM3 (1.0-4.8) Iron Level 36 MCG/DL (65-175) Total Iron Binding Capacity 227 MCG/DL (250-450) Percent Iron Saturation 15.9 % (20-50) Imaging Last Impressions Chest X-Ray 03/13/17 0600 Signed Impressions: Service Date/Time: Monday, March 13, 2017 04:59 - CONCLUSION: Left chest tube has been removed. Persistent consolidation left lung base without pneumothorax. Nader Markham MD Lower Extremity Ultrasound 03/05/17 0000 Signed Impressions: Service Date/Time: Sunday, March 05, 2017 16:53 - CONCLUSION: Venous mapping as described above Ilia Robison MD FACR Carotid Artery Ultrasound 03/05/17 0000 Signed Impressions: Service Date/Time: Sunday, March 05, 2017 16:33 - CONCLUSION: Negative examination for a hemodynamically significant carotid stenosis. Ilia Robison MD PE at Discharge GENERAL: AOX3, NAD. On room air. SKIN: Warm and dry. EYES: No scleral icterus. No injection or drainage. CARDIOVASCULAR: Regular rate and rhythm without murmurs, gallops, or rubs. RESPIRATORY: Breath sounds equal bilaterally. No accessory muscle use. GASTROINTESTINAL: Abdomen soft, non-tender, nondistended. MUSCULOSKELETAL: No cyanosis, 1+ edema. BACK: Nontender without obvious deformity. No CVA tenderness. Alert, awake, oriented 3. Hospital Course Mr. Melchor is a 76-year-old male with a past medical history of hypertension, hyperlipidemia, atrial fibrillation, CAD with ostial RCA stenting on Plavix and aspirin, diverticulitis, skin cancer and hyperthyroidism who presented to the ED on 03/05/2017 due to exertional chest pain. Patient was evaluated by cardiology and underwent LHC on 03/05/2017 which showed multivessel CAD. CABG was recommended. Patient underwent CABG on 03/09/17. Postoperatively developed atrial fibrillation with RVR which resolved after amiodarone loading. Patient with iron deficiency anemia which was replaced with iron, will be sent home with iron as well. Blood pressure stable off of several home blood pressure medications, diuretics. Will be discharged without losartan or indapamide. We will need those follow-up with primary care, cardiology, cardiovascular surgery. //Multivessel Coronary artery disease on left heart cath on 03/05/2017, HNT, HLD - s/p LHC on 03/05/2017 --> Multivessel CAD with significant stenosis of the ostial RCA, LAD diagonal bifurcation. CT surgery consulted. s/p CABG 03/09/17. Dopamine and neosynephrine - 2D echo shows EF 55-60%, Moderate AR with valve area 2.47 cm^2. Continue Aspirin, Plavix, Lipitor, amiodarone. Awaiting BMP today, we'll give her a dose of Lasix if BMP stable. = 03/14 Patient doing well. Blood pressure stable off of losartan, indapamide. We'll hold this at discharge. Follow-up with cardiology, cardiovascular surgery as outpatient. //Symptomatic anemia-check iron studies, continue iron sucrose, hemoglobin is stable, minimize CBC. -03/14 Status post 2 bags of IV iron. Continue by mouth iron at home. Laxatives daily for prevention of constipation. //Constipation-add magnesium citrate, on MiraLAX and magnesium hydroxide. = 03/14. Resolved. //Extremity swelling and edema- blood pressure stable, Lasix as needed. Also on indapamide. Recheck BMP tomorrow. -Blood pressure and edema under control without indapamide. We'll discharge home with 2 L fluid restrictions. Follow up cardiology as outpatient. //Atrial fibrillation - Cardizem stopped per cardiothoracic surgery. Status post Maze procedure. Previously on apixaban. = 03/14. Her rate controlled on amiodarone. We'll discharge home with metoprolol, amiodarone. Amiodarone to be tapered by cardiology. //Hyperthyroidism: Continue methimazole 5mg Qday. //Resolved after replacement. Full code. Pt Condition on Discharge: Good Discharge Disposition: Disch w/ Home Health Serv Discharge Time: > 30 minutes Discharge Instructions DIET: Follow Instructions for: Heart Healthy Diet Fluid Restrictions: 2Liters Activities you can perform: See Additionl Instruction Other Activity Instructions: no lifting or upper extremity use as per cardiovascular surgery instructions. Follow up Referrals: Cardiology @ [facility] with Natalie Hamilton MD PCP Follow-up PCP Follow-up Surgical with Stefan Chua MD New Medications: Amiodarone (Amiodarone) 200 Mg Tab 200 MG PO DAILY followup with cardiology to taper this medication heart Days 30 TAB Apixaban (Eliquis) 5 Mg Tab 5 MG PO BID Prevent Stroke Days 30 TAB Atorvastatin (Atorvastatin) 80 Mg Tab 80 MG PO HS cholesterol Days 30 TAB Docusate Sodium (Dok) 100 Mg Cap 100 MG PO BID prevent constipation Days 30 CAP Ferrous Sulfate (Ferrous Sulfate) 325 Mg Tab 325 MG PO BID@12,17 iron deficiency Days 30 TAB Pantoprazole (Pantoprazole) 40 Mg Tab 40 MG PO DAILY@06 prevent ulcer Days 30 TAB Polyethylene Glycol 3350 Powder (Polyethylene Glycol 3350 Powder) 17 Gm Pow 17 GM PO DAILY Constipation Days 30 BOTTLE Continued Medications: Methimazole (Methimazole) 5 Mg Tab 5 MG PO DAILY Thyroid #30 Ref 0 TAB Metoprolol Tartrate (Metoprolol Tartrate) 25 Mg Tab 12.5 MG PO BID #60 Ref 0 TAB Multiple Vitamin (Multi Vitamin) 1 Tab Tab 1 TAB PO DAILY TAB Discontinued Medications: Aspirin (Aspirin) 325 Mg Tab 325 MG PO DAILY #30 Ref 0 TAB Atorvastatin (Atorvastatin) 10 Mg Tab 10 MG PO HS Cholesterol Management #30 Ref 0 TAB Clopidogrel (Plavix) 75 Mg Tab 75 MG PO DAILY Blood Clot Prevention #30 Ref 0 TAB Diltiazem ER 24 HR (Cardizem LA) 300 Mg Radha 300 MG PO DAILY #30 Ref 0 TAB Indapamide (Indapamide) 2.5 Mg Tab 2.5 MG PO DAILY Losartan (Losartan) 100 Mg Tab 100 MG PO DAILY Blood Pressure Management #30 Ref 0 TAB Walker Zamorano MD Mar 14, 2017 10:13
--- NOTE | 2017-03-27 10:01 | RSPPFT ---
DATE OF PROCEDURE: 03/05/17 COMMENTS: Spirometry with FVC of 3.7 predicted 4.6, FEV1 of 3.1 predicted 3.6, FEV1/FVC ratio 84% predicted 77%. IMPRESSION: On the basis of the above, patient has flow values within the predicted range.
== END 2017-03-14 12:11 | disposition home health service (06) | DRG 229 ==
LOC: NEPC 04:26 → NEDA 05:59 → NEPFCDU 08:46 → HCIS 09:57 → OBSVTOIN 14:30 → HCIS 03-09 07:08 → HCVR 03-09 12:33 → HCIN 03-11 17:15
PROVIDERS: ADMIT Internal Medicine; ATTEND Internal Medicine
PROC: 4A023N7 Measurement of Cardiac Sampling and Pressure, Left Heart, Percutaneous Approach (ICD-10-PCS; 2017-03-05)
PROC: B2111ZZ Fluoroscopy of Multiple Coronary Arteries using Low Osmolar Contrast (ICD-10-PCS; 2017-03-05)
PROC: B2151ZZ Fluoroscopy of Left Heart using Low Osmolar Contrast (ICD-10-PCS; 2017-03-05)
PROC: 021109W Bypass Coronary Artery, Two Arteries from Aorta with Autologous Venous Tissue, Open Approach (ICD-10-PCS; 2017-03-09)
PROC: 06BQ4ZZ Excision of Left Saphenous Vein, Percutaneous Endoscopic Approach (ICD-10-PCS; 2017-03-09)
PROC: 02B70ZK Excision of Left Atrial Appendage, Open Approach (ICD-10-PCS; 2017-03-09)
PROC: 5A2204Z Restoration of Cardiac Rhythm, Single (ICD-10-PCS; 2017-03-09)
PROC: 02580ZZ Destruction of Conduction Mechanism, Open Approach (ICD-10-PCS; principal; 2017-03-09 07:07)
PROC: 02100Z9 Bypass Coronary Artery, One Artery from Left Internal Mammary, Open Approach (ICD-10-PCS; 2017-03-09 07:07)
DX: I25.119 Atherosclerotic heart disease of native coronary artery with unspecified angina pectoris (principal); T82.855A Stenosis of coronary artery stent, initial encounter; R00.1 Bradycardia, unspecified; I48.2 Chronic atrial fibrillation; E05.90 Thyrotoxicosis, unspecified without thyrotoxic crisis or storm; I10 Essential (primary) hypertension; E78.5 Hyperlipidemia, unspecified; E66.9 Obesity, unspecified; E87.6 Hypokalemia; K59.00 Constipation, unspecified; R60.9 Edema, unspecified; D50.0 Iron deficiency anemia secondary to blood loss (chronic); Z68.33 Body mass index [BMI] 33.0-33.9, adult; Z79.82 Long term (current) use of aspirin; Z79.02 Long term (current) use of antithrombotics/antiplatelets; Z79.899 Other long term (current) drug therapy; Z85.828 Personal history of other malignant neoplasm of skin; Z87.891 Personal history of nicotine dependence
CPT/HCPCS: 71010; 76937; 80048; 80053; 80061; 80076; 81001; 82948; 83036; 83540; 83550; 83735; 84132; 84439; 84481; 84484; 85014; 85025; 85027; 85576; 85610; 85730; 86850; 86900; 86901; 86920; 87641; 88305; 93005; 93306; 93454; 93880; 93970; 93998; 94002; 94010; 94150; 94640; 94664; 94667; 94668; C1768; C1769; C1893; J0131; J0171; J0282; J0690; J1160; J1644; J1756; J1815; J1885; J1940; J2250; J2270; J2370; J2405; J2440; J2720; J3010; J3370; J3475; J3480; J7060; J7120; P9045; Q9967

== ENCOUNTER 2017-03-25 10:11 | Inpatient (IN) | payer OTHER, MEDICARE ==
[2017-03-25] VITALS (14 sets, daily range): BP systolic 94–149; BP diastolic 54–84; PULSE 58–141; RESP 16–20; TEMP 97.7–98.3; O2SAT 96–100
[~2017-03-25] VITALS: Ht 185.4 cm; Wt 111.0 kg
[~2017-03-25 10:11] MED LIST changes: +AMIO200T PO; +APIX5TAB PO; -ASPI325T PO; -ATOR10TA15 PO; +ATOR1TAB18 PO; -DILT1TAB22 PO; +DOCU1CAP39 PO; +FERR325T PO; -INDA2.5T PO; -ISOS30TA3 PO; -LOSA100T PO; +PANT40TA3 PO; -PLAV75TA29 PO; +POLY17S PO
[2017-03-25 10:55] LABS: AUTOMATED NEUTROPHIL # 5.2 TH/MM3 (1.8-7.7); BASOPHIL # 0.1 TH/MM3 (0-0.2); BASOPHIL % 0.8 % (0.0-2.0); EOSINOPHIL # 0.2 TH/MM3 (0-0.4); EOSINOPHIL % 3.3 % (0.0-4.0); HEMATOCRIT 30.9 % (39.0-51.0); HEMO FLAGS DIFF FINAL; LYMPH % 13.4 % (9.0-44.0); LYMPHOCYTE # 0.9 TH/MM3 (1.0-4.8); MEAN CELL VOLUME 92.4 FL (80.0-100.0); MEAN CORPUSCULAR HEMOGLOBIN 30.5 PG (27.0-34.0); MEAN CORPUSCULAR HGB CONC 33.1 % (32.0-36.0); MONO % 5.2 % (0.0-8.0); NEUT % 77.3 % (16.0-70.0); PLATELET COUNT 476 TH/MM3 (150-450); RED BLOOD COUNT 3.35 MIL/MM3 (4.50-5.90); WHITE BLOOD COUNT 6.7 TH/MM3 (4.0-11.0)
[2017-03-25 11:04] LABS: INTERNATIONAL NORMALIZED RATIO 1.1 RATIO; PROTHROMBIN TIME - PATIENT 12.4 SEC (9.8-11.6)
[2017-03-25] MEDS ORDERED: DILTIAZEM HCL 25 MG/5 ML VIAL IV PUSH ONE (11:30)
--- NOTE | 2017-03-25 11:31 | PD ---
HPI Chief Complaint: Cardiac Complaint Time Seen by Provider: 11:25 Travel History International Travel<30 days: No Contact w/Intl Traveler<30days: No Traveled to known affect area: No History of Present Illness HPI 76-year-old male presents to the emergency department for evaluation of atrial fibrillation with RVR. Patient has a past medical history of hypertension, hyperlipidemia, atrial fibrillation, CAD, diverticulitis, skin cancer, hyperthyroidism. Patient had stent placed in October. He presents to the emergency department with chest pain and underwent CABG on 02/24/[address] Chua. He did develop atrial fibrillation with RVR after CABG which resolved after amiodarone loading. His track machine operator repairer is Dr. Hamilton. The patient states that he was doing fine after discharge, but feels like he has been in atrial fibrillation RVR for approximately 60 hours. He states he does have a history of going in and out of atrial fibrillation, but it is not usually last this long. He states his heart rate has been between 110 and 140. The patient states he feels slightly weak due to the A. fib. He denies any chest pain or shortness breath. No abdominal pain. No nausea, vomiting, diarrhea. No fevers or chills. He states he has been doing well otherwise. Patient is taking amiodarone as well as metoprolol. He has been taking his aspirin prescribed. Patient is on on Eliquis. [facility] Past Medical History Hx Anticoagulant Therapy: Yes Atrial Fibrillation: Yes Heart Rhythm Problems: Yes Cancer: Yes (SKIN) Cardiac Catheterization: Yes (STENT PLACED 10/2016) Cardiovascular Problems: Yes High Cholesterol: Yes Chest Pain: Yes Congestive Heart Failure: No Diabetes: No Diminished Hearing: No Endocrine: Yes Genitourinary: No Hypertension: Yes Musculoskeletal: No Neurologic: No Reproductive: No Respiratory: No Thyroid Disease: Yes (hyperthyroidism) Past Surgical History Abdominal Surgery: No Cardiac Surgery: No Coronary Artery Bypass Graft: No Ear Surgery: No Endocrine Surgery: No Eye Surgery: No Genitourinary Surgery: No Gynecologic Surgery: No Oral Surgery: No Thoracic Surgery: No Other Surgery: Yes (FATTY TUMOR REMOVED) Social History Alcohol Use: Yes (socially ) Tobacco Use: No (QUIT 47 YRS AGO) Substance Use: No Allergies-Medications (Allergen,Severity, Reaction): Coded Allergies: Lisinopril (Verified Allergy, Unknown, 03/25/17) Reported Meds & Prescriptions Reported Meds & Active Scripts Active Polyethylene Glycol 3350 Powder (Polyethylene Glycol) 17 Gm Pow 17 Gm PO DAILY 30 Days Atorvastatin (Atorvastatin Calcium) 80 Mg Tab 80 Mg PO HS 30 Days Pantoprazole (Pantoprazole Sodium) 40 Mg Tab 40 Mg PO DAILY@06 30 Days Amiodarone (Amiodarone HCl) 200 Mg Tab 200 Mg PO DAILY 30 Days followup with cardiology to taper this medication Ferrous Sulfate 325 Mg Tab 325 Mg PO BID@,17 30 Days Eliquis (Apixaban) 5 Mg Tab 5 Mg PO BID 30 Days Reported Metoprolol Tartrate 25 Mg Tab 12.5 Mg PO BID Methimazole 5 Mg Tab 5 Mg PO DAILY Multi Vitamin (Multiple Vitamin) 1 Tab Tab 1 Tab PO DAILY Review of Systems Except as stated in HPI: all other systems reviewed are Neg Physical Exam Narrative GENERAL: Well-nourished, well-developed elderly male patient afebrile., SKIN: Focused skin assessment warm/dry. Patient has healing incision to the midsternal chest with Steri-Strips in place. No erythema or drainage. HEAD: Normocephalic. Atraumatic. EYES: No scleral icterus. No injection or drainage. NECK: Supple, trachea midline. No JVD or lymphadenopathy. CARDIOVASCULAR: Irregular rhythm, fast heart rate without murmurs, gallops, or rubs. Bilateral radial and pedal pulses 2+. RESPIRATORY: Breath sounds equal bilaterally. No accessory muscle use. Lungs sounds are clear to auscultation. GASTROINTESTINAL: Abdomen soft, non-tender, nondistended. MUSCULOSKELETAL: No cyanosis, or edema. BACK: Nontender without obvious deformity. No CVA tenderness. Data Data Last Documented VS Vital Signs Date Time Temp Pulse Resp B/P Pulse Ox O2 Delivery O2 Flow Rate FiO2 03/25/17 12:46 96 16 112/68 100 03/25/17 10:13 97.7 Orders Electrocardiogram (03/25/17 10:16) Complete Blood Count With Diff (03/25/17 10:16) Basic Metabolic Panel (Bmp) (03/25/17 10:16) Ckmb (Isoenzyme) Profile (03/25/17 10:16) Troponin I (03/25/17 10:16) Chest, Single Ap (03/25/17 10:16) Iv Access Insert/Monitor (03/25/17 10:16) Ecg Monitoring (03/25/17 10:16) Oxygen Administration (03/25/17 10:16) Oximetry (03/25/17 10:16) Prothrombin Time / Inr (Pt) (03/25/17 10:16) Diltiazem Inj (Cardizem Inj) (03/25/17 11:30) Act Partial Throm Time (Ptt) (03/25/17 11:18) Sodium Chlor 0.9% 1000 Ml Inj (Ns 1000 M (03/25/17 11:45) Diltiazem Inj (Cardizem Inj) (03/25/17 13:00) Labs Laboratory Tests Test 03/25/17 10:30 White Blood Count 6.7 TH/MM3 Red Blood Count 3.35 MIL/MM3 Hemoglobin 10.2 GM/DL Hematocrit 30.9 % Mean Corpuscular Volume 92.4 FL Mean Corpuscular Hemoglobin 30.5 PG Mean Corpuscular Hemoglobin 33.1 % Concent Red Cell Distribution Width 17.0 % Platelet Count 476 TH/MM3 Mean Platelet Volume 7.0 FL Neutrophils (%) (Auto) 77.3 % Lymphocytes (%) (Auto) 13.4 % Monocytes (%) (Auto) 5.2 % Eosinophils (%) (Auto) 3.3 % Basophils (%) (Auto) 0.8 % Neutrophils # (Auto) 5.2 TH/MM3 Lymphocytes # (Auto) 0.9 TH/MM3 Monocytes # (Auto) 0.4 TH/MM3 Eosinophils # (Auto) 0.2 TH/MM3 Basophils # (Auto) 0.1 TH/MM3 CBC Comment DIFF FINAL Differential Comment Prothrombin Time 12.4 SEC Prothromb Time International 1.1 RATIO Ratio Activated Partial 29.0 SEC Thromboplast Time Sodium Level 139 MEQ/L Potassium Level 4.1 MEQ/L Chloride Level 102 MEQ/L Carbon Dioxide Level 29.0 MEQ/L Anion Gap 8 MEQ/L Blood Urea Nitrogen 13 MG/DL Creatinine 0.99 MG/DL Estimat Glomerular Filtration 74 ML/MIN Rate Random Glucose 144 MG/DL Calcium Level 8.7 MG/DL Total Creatine Kinase 29 U/L Troponin I LESS THAN 0.02 NG/ML MDM Medical Decision Making Medical Screen Exam Complete: Yes Emergency Medical Condition: Yes Medical Record Reviewed: Yes Interpretation(s) Last Impressions Chest X-Ray 03/25/17 1016 Signed Impressions: Service Date/Time: Saturday, March 25, 2017 11:21 - CONCLUSION: Persistent left lower lobe consolidation versus atelectasis and small left pleural effusion. Nathanael Jasso MD Differential Diagnosis Atrial fibrillation with RVR versus electrolyte abnormality versus ACS Narrative Course 76-year-old male presents to the emergency department for evaluation of atrial fibrillation with RVR. Patient reports history of A. fib RVR for approximate 3 years. He states he has been and RVR for approximately 60 hours. He is status post CABG 2 weeks ago. EKG shows atrial fibrillation with rapid ventricular response, heart rate 126, no acute ST changes. CBC, BMP, CK, troponin, PTT/INR , PTT are ordered and pending. Chest x-ray is ordered and pending. Patient is given Cardizem 0.25 mg/kg IV. CBC shows hemoglobin 10.2, hematocrit 30.9, platelets 476. BMP shows glucose 144. CK is 29. Troponin is less than 0.02. Coags show no acute abnormality. Chest x-ray shows persistent left lower lobe consolidation versus atelectasis and small left pleural effusion. After dose of Cardizem, the patient's heart rate went to 70-90, A. fib. Patient did have a short period of hypotension after Cardizem bolus, but was resolved after 1 L normal saline IV bolus. Upon reassessment, heart rate is now between 80 and 112. Patient's track machine operator repairer, Dr. Hamilton, is paged. I spoke to Dr. Grayson who would like the patient to be admitted. He likes the patient be started on a Cardizem drip. [facility] is paged for admission. Dr. Zamorano accepted admission. Diagnosis Primary Impression: Atrial fibrillation with RVR Admitting Information Admitting Physician Requests: Observation Mariel Franco Mar 25, 2017 11:31
[2017-03-25 11:33] LABS: ANION GAP 8 MEQ/L (5-15); BLOOD UREA NITROGEN 13 MG/DL (7-18); CHLORIDE 102 MEQ/L (98-107); GLOMERULAR FILTRATION RATE 74 ML/MIN (>89); POTASSIUM 4.1 MEQ/L (3.5-5.1); SODIUM (NA) 139 MEQ/L (136-145)
[2017-03-25 11:40] LABS: CREATINE KINASE 29 U/L (39-308)
[2017-03-25] MEDS ORDERED: SODIUM CHLOR 0.9% 1000 ML INJ 1,000 ML IV ONE (11:45)
--- NOTE | 2017-03-25 12:21 | RADRPT ---
EXAM DATE/TIME: 03/25/2017 11:21 [place] COMPARISON: CHEST SINGLE AP, March 13, 2017, 4:59. INDICATIONS : Chest pain. MEDICAL HISTORY : Hypertension. Myocardial infarction. Atrial fibrillation. SURGICAL HISTORY : CABG. Coronary artery stent. Cardiac catheterization. ENCOUNTER: Initial ACUITY: 1 day PAIN SCORE: 1/10 LOCATION: Bilateral chest FINDINGS: Single AP view of the chest. Confluent left lower lung opacity and small left pleural effusion again seen. Moderate cardiac silhouette enlargement again seen. Median sternotomy wires present. Right lung is clear. CONCLUSION: Persistent left lower lobe consolidation versus atelectasis and small left pleural effusion. Nathanael Jasso MD on March 25, 2017 at 12:19 Board Certified Radiologist. This report was verified electronically.
[2017-03-25] MEDS ORDERED: DILTIAZEM INJ 125 MG in SODIUM CHLORIDE 0.9% INJ 100 ML IV SCH (13:00)
[2017-03-25] MEDS ORDERED: SODIUM CHLORIDE 0.9% FLUSH 10 ML FLUSH IV FLUSH PRN (13:30)
[2017-03-25] MEDS ORDERED: NALOXONE HCL 0.4 MG/ML AMP IV PRN ×2 (13:30→17:15)
--- NOTE | 2017-03-25 16:37 | HHI.HP ---
cc: Natalie Hamilton MD; Stefan Chua MD [facility] Service [facility] Primary Care Physician Rajan Partida M.D. Admission Diagnosis A-fib with RVR Diagnoses: Chief Complaint: palpitations, atrial fibrillation Travel History International Travel<30 Days: No Contact w/Intl Traveler <30 Da: No Traveled to Known Affected Are: No History of Present Illness 76-year-old male with history of atrial fibrillation, HTN, HLD, CAD s/p CABG , presents with a three-day history of palpitations and weakness. The patient was recently admitted to the hospital 03/05/ for chest pain, underwent cardiac catheterization 03/05 revealed multilevel vessel CAD was significant stenosis of the ostial RCA with in-stent restenosis and stenosis LAD diagonal bifurcation. Patient underwent CABG [address] Chua on 03/09/17. The patient has a history of paroxysmal atrial fibrillation and went into A. fib with RVR postoperatively which resolved with amiodarone loading. During that visit, the patient's Cardizem was discontinued per cardiothoracic surgery and the patient was sent home on metoprolol and amiodarone per his driver license technician Dr. Hamilton. The patient states he was doing fine at home for over one week until this past 03/22 at midnight he again developed atrial fibrillation with RVR. States over the past three days his heart rate has been in the [id number]. He has felt palpitations and weakness but denies any significant chest pain or shortness of breath. Today his heart rate went up into the 140s at home therefore he decided to come to the ER. He presented to the ER with atrial fibrillation with RVR, heart rate 140s, given IV Cardizem 28 mg bolus which did improve his heart rate however his blood pressure also dropped to 70s/50s, now improved after IVF bolus. The patient also complains of "retaining water". He states at discharge he was at his baseline of 238 pounds however this past Tuesday 03/20 he went to doctor's appointment where he weighed 251 pounds. He also notices bilateral leg swelling. He denies any changes in his diet. He is not on any diuretics at this time. He has trouble sleeping down lying flat on his back secondary to the pain from his CABG. Otherwise, the patient denies any other medical complaints. He has appointment on 03/27 to see cardiothoracic surgeon Dr. Chua, and has an appointment 04/[address] Hamilton. Review of Systems Except as stated in HPI: all other systems reviewed are Neg Past Family Social History Past Medical History atrial fibrillation HTN HLD CAD Skin cancer Hyperthyroidism Diverticulosis Past Surgical History CABG x3 on 03/09/[address] Chua Cardiac catheterization Skin cancer resections Tonsillectomy Allergies: Coded Allergies: Lisinopril (Verified Allergy, Unknown, 03/25/17) Active Ordered Medications Current Medications Medications (Trade) Dose Ordered Sig/Raymond Route Start Time Stop Time Status Last Admin (Cardizem Inj/NS Inj) 125 ml @ 0 mls/hr TITRATE IV 03/25/17 13:00 03/25/17 13:58 (NS Flush) 2 ml UNSCH PRN IV FLUSH 03/25/17 13:30 (NS Flush) 2 ml BID IV FLUSH 03/25/17 21:00 (Narcan Inj) 0.4 mg UNSCH PRN IV 03/25/17 13:30 (Lipitor) 80 mg HS PO 03/25/17 21:00 (Tapazole) 5 mg DAILY PO 03/26/17 09:00 (Protonix) 40 mg DAILY@06 PO 03/26/17 06:00 (Lasix Inj) 20 mg ONCE ONCE IV PUSH 03/25/17 16:45 03/25/17 16:46 UNV (Lasix Inj) 20 mg BID@09,18 IV PUSH 03/25/17 18:00 UNV Family History Maternal medical history significant for Alzheimer disease, denies any diabetes or cardiovascular disease. Paternal medical history significant for [place]. Social History Prior tobacco use, smoked for 12 years, quit over 47 years ago Occasional social alcohol use Denies any illicit drug use Physical Exam Vital Signs Vital Signs Date Time Temp Pulse Resp B/P Pulse Ox O2 Delivery O2 Flow Rate FiO2 03/25/17 16:05 96 Room Air 03/25/17 16:00 110 03/25/17 15:15 110 03/25/17 15:15 98.2 119 20 149/72 96 03/25/17 13:58 112 16 119/56 98 03/25/17 12:46 96 16 112/68 100 03/25/17 11:56 77 16 94/54 100 03/25/17 11:55 99 03/25/17 11:55 03/25/17 11:40 141 16 110/65 99 03/25/17 10:13 97.7 138 16 134/84 98 Physical Exam GENERAL: Well-nourished, well-developed pleasant elderly male patient in [facility]. SKIN: Warm and dry. No rash. HEAD: Normocephalic. Atraumatic. EYES: Pupils equal and round. No scleral icterus. No injection or drainage. ENT: No nasal bleeding or discharge. Mucous membranes pink and moist. NECK: Supple. Trachea midline. CARDIOVASCULAR: Irregularly irregular rate and rhythm. S1, S2 noted. No murmur appreciated. Midline sternotomy site well-healing. RESPIRATORY: No accessory muscle use. Clear to auscultation. Breath sounds equal bilaterally. GASTROINTESTINAL: Abdomen soft, non-tender, nondistended. Normoactive bowel sounds x4. MUSCULOSKELETAL: No obvious deformities. 2+ bilateral lower extremity edema. NEUROLOGICAL: Awake and alert. No obvious cranial nerve deficits. Motor grossly within normal limits. Moves all extremities spontaneously. Normal speech. PSYCHIATRIC: Appropriate mood and affect; insight and judgment normal. Laboratory Laboratory Tests Test 03/25/17 10:30 White Blood Count 6.7 Red Blood Count 3.35 Hemoglobin 10.2 Hematocrit 30.9 Mean Corpuscular Volume 92.4 Mean Corpuscular Hemoglobin 30.5 Mean Corpuscular Hemoglobin 33.1 Concent Red Cell Distribution Width 17.0 Platelet Count 476 Mean Platelet Volume 7.0 Neutrophils (%) (Auto) 77.3 Lymphocytes (%) (Auto) 13.4 Monocytes (%) (Auto) 5.2 Eosinophils (%) (Auto) 3.3 Basophils (%) (Auto) 0.8 Neutrophils # (Auto) 5.2 Lymphocytes # (Auto) 0.9 Monocytes # (Auto) 0.4 Eosinophils # (Auto) 0.2 Basophils # (Auto) 0.1 CBC Comment DIFF FINAL Differential Comment Prothrombin Time 12.4 Prothromb Time International 1.1 Ratio Activated Partial 29.0 Thromboplast Time Sodium Level 139 Potassium Level 4.1 Chloride Level 102 Carbon Dioxide Level 29.0 Anion Gap 8 Blood Urea Nitrogen 13 Creatinine 0.99 Estimat Glomerular Filtration 74 Rate Random Glucose 144 Calcium Level 8.7 Total Creatine Kinase 29 Troponin I LESS THAN 0.02 Result Diagram: 03/25/17 1030 03/25/17 1030 Imaging Last Impressions Chest X-Ray 03/25/17 1016 Signed Impressions: Service Date/Time: Saturday, March 25, 2017 11:21 - CONCLUSION: Persistent left lower lobe consolidation versus atelectasis and small left pleural effusion. Nathanael Jasso MD Assessment and Plan Problem List: (1) Atrial fibrillation with RVR ICD Code: I48.91 Status: Acute Assessment and Plan 76-year-old male with history of atrial fibrillation, HTN, HLD, CAD s/p CABG , presents with a three-day history of palpitations, weakness, and edema. The patient was recently admitted to the hospital 03/05/ for chest pain , underwent cardiac catheterization 03/05 revealed multilevel vessel CAD was significant stenosis of the ostial RCA with in-stent restenosis and stenosis LAD diagonal bifurcation. Patient underwent CABG [address] Chua on 03/09/17. The patient has a history of paroxysmal atrial fibrillation and went into A. fib with RVR postoperatively which resolved with amiodarone loading. During that visit, the patient's Cardizem was discontinued per cardiothoracic surgery and the patient was sent home on metoprolol and amiodarone per his driver license technician Dr. Hamilton. The patient states he was doing fine at home for over one week until this past 03/22 at midnight he again developed afib with RVR. States over the past three days his heart rate has been in the [id number], however today his heart rate went up into the 140s at home therefore he decided to come to the ER. Atrial Fibrillation with RVR: HR 140s upon arrival, s/p IV Cardizem 28 mg bolus , HR improved however BP also dropped to 70s/50s, now improved after IVF bolus. Patient hyperthyroidism may be contributing, TSH very low, see below. -Continue on IV Cardizem drip -Continue patient's metoprolol, hold patient's amiodarone -Continue patient's anticoagulation with Eliquis -Consult patient's driver license technician Dr. Hamilton -Monitor on telemetry in CIC unit -after discharge, patient has an appointment 04/[address] Hamilton. Lower Extremity Edema/Weight Gain: 2+edema on exam, 13lbs weight gain. Not on diuretics at home. -Give Lasix IV 20mg bid for now. -Monitor Is&Os. -Elevate lower extremities. -Check BNP -Consider echo, will defer to cardiology CAD: s/p CABG x3 on 03/[address] Chua -continue patient's BB, Eliquis -has appointment on 03/27 to see cardiothoracic surgeon Dr. Chua -pain control with [place] prn Hyperthyroidism: acute on chronic, patient's TSH is very low 0.059, possibly contributing to above -check free T4 -increased patient's methimazole from 5mg qd to 5mg q8h -repeat TSH/T4 as outpatient in 2 weeks and f/up with PCP Dr. Partida Hyperlipidemia: chronic, stable -continue patient's statin DVT Prophylaxis: on Eliquis Written by Karlee Araya, acting as scribe for Dr. Zamorano on 03/25/17 at 16: 56. This note was transcribed by scribe [ Karlee Araya,]. I, Dr. Walker Zamorano personally performed the history, physical exam, and medical decision making; and confirmed the accuracy of the information in the transcribed note. Authenticated by Dr. Walker Zamorano on 03/28/17 at 09:00. Discussed Condition With Patient, Patient's , ED [facility] Physician Certification 2 Midnight Certification Type: Admission for Inpatient Services Order for Inpatient Services The services are ordered in accordance with Medicare regulations or non- Medicare payer requirements, as applicable. In the case of services not specified as inpatient-only, they are appropriately provided as inpatient services in accordance with the 2-midnight benchmark. Estimated LOS (days): 2 days is the estimated time the patient will need to remain in the hospital, assuming treatment plan goals are met and no additional complications. Post-Hospital Plan: Home Karlee Araya PA-C Mar 25, 2017 16:36 Walker Zamorano MD March 28, 2017 09:00
[2017-03-25] MEDS ORDERED: FUROSEMIDE 20 MG/2 ML VIAL IV PUSH ONE (16:45)
--- NOTE | 2017-03-25 16:53 | PD.CONS ---
HPI Service Cardiology Consult Requested By IM Reason for Consult Afib with RVR Primary Care Physician Rajan Partida M.D. History of Present Illness 76 y/o M with pmhx of CAD s/p recent CABG, hypertension, hyperlipidemia and post CABG atrial fibrillation on chronic OAC that presented to the ED with complaints of palpitations and weakness. His log skidder is Dr. Hamilton. He denies chest pain, SOB, abdominal pain, nausea, vomiting, diarrhea, fevers or chills. He states he has been doing well otherwise and compliant with medication regimen. Review of Systems Consitutional: COMPLAINS OF: Fatigue, DENIES: Fever, Chills, Weight gain, Weight loss Eyes: DENIES: Amaurosis Fugax, Change in vision HEENT: DENIES: Lightheadedness, Change in hearing Respiratory: DENIES: See HPI, Cough, Snoring, Shortness of breath, Wheezing, Sputum production Cardiovascular: COMPLAINS OF: See HPI, Palpitations, Tachycardia, DENIES: Chest pain, Syncope Gastrointestinal: DENIES: Nausea, Vomiting, Change in bowel habits, Reflux, Bloody stools, Melena Genitourinary: DENIES: Urinary incontinence, Difficulty voiding Integumentary: DENIES: Rash Neurologic: DENIES: Tingling or numbness, Memory problems, Poor Balance, Stroke symptoms Musculoskeletal: DENIES: Joint pain, Muscle pain, Limited range of motion, Back pain Psychiatric: DENIES: Anxiety, Depression, Sleep disturbances Hematologic: DENIES: Bruising tendencies, Bleeding tendencies Endocrine: DENIES: Weight gain, Weight loss, Thyroid disease Past Family Social History Allergies: Coded Allergies: Lisinopril (Verified Allergy, Unknown, 03/25/17) Past Medical History CAD Afib HTN HLD Past Surgical History CABG Reported Medications Reported Meds & Active Scripts Active Polyethylene Glycol 3350 Powder (Polyethylene Glycol) 17 Gm Pow 17 Gm PO DAILY 30 Days Atorvastatin (Atorvastatin Calcium) 80 Mg Tab 80 Mg PO HS 30 Days Pantoprazole (Pantoprazole Sodium) 40 Mg Tab 40 Mg PO DAILY@06 30 Days Amiodarone (Amiodarone HCl) 200 Mg Tab 200 Mg PO DAILY 30 Days followup with cardiology to taper this medication Ferrous Sulfate 325 Mg Tab 325 Mg PO BID@,17 30 Days Eliquis (Apixaban) 5 Mg Tab 5 Mg PO BID 30 Days Reported Metoprolol Tartrate 25 Mg Tab 12.5 Mg PO BID Methimazole 5 Mg Tab 5 Mg PO DAILY Multi Vitamin (Multiple Vitamin) 1 Tab Tab 1 Tab PO DAILY Active Ordered Medications Current Medications Medications (Trade) Dose Ordered Sig/Raymond Route Start Time Stop Time Status Last Admin (Cardizem Inj/NS Inj) 125 ml @ 0 mls/hr TITRATE IV 03/25/17 13:00 03/25/17 13:58 (NS Flush) 2 ml UNSCH PRN IV FLUSH 03/25/17 13:30 (NS Flush) 2 ml BID IV FLUSH 03/25/17 21:00 (Narcan Inj) 0.4 mg UNSCH PRN IV 03/25/17 13:30 (Lipitor) 80 mg HS PO 03/25/17 21:00 (Tapazole) 5 mg DAILY PO 03/26/17 09:00 (Protonix) 40 mg DAILY@06 PO 03/26/17 06:00 (Lasix Inj) 20 mg ONCE ONCE IV PUSH 03/25/17 16:45 03/25/17 16:46 UNV (Lasix Inj) 20 mg BID@09,18 IV PUSH 03/25/17 18:00 UNV Family History Noncontributory Social History No Alcohol No Smoking No illicit drug use Physical Exam Vital Signs Vital Signs Date Time Temp Pulse Resp B/P Pulse Ox O2 Delivery O2 Flow Rate FiO2 03/25/17 16:05 96 Room Air 03/25/17 16:00 110 03/25/17 15:15 110 03/25/17 15:15 98.2 119 20 149/72 96 03/25/17 13:58 112 16 119/56 98 03/25/17 12:46 96 16 112/68 100 03/25/17 11:56 77 16 94/54 100 03/25/17 11:55 99 03/25/17 11:55 03/25/17 11:40 141 16 110/65 99 03/25/17 10:13 97.7 138 16 134/84 98 Physical Exam GENERAL: Well-nourished, well-developed patient. SKIN: Warm and dry. HEAD: Normocephalic. EYES: No scleral icterus. No injection or drainage. NECK: Supple, trachea midline. No JVD or lymphadenopathy. CARDIOVASCULAR: Irr Irr without murmurs, gallops, or rubs. RESPIRATORY: Breath sounds equal bilaterally. No accessory muscle use. GASTROINTESTINAL: Abdomen soft, non-tender, nondistended. EXTREMITIES: No cyanosis, or edema. NEUROLOGICAL: Awake, alert, and oriented x 3. Non-focal. Laboratory Laboratory Tests Test 03/25/17 10:30 White Blood Count 6.7 Red Blood Count 3.35 Hemoglobin 10.2 Hematocrit 30.9 Mean Corpuscular Volume 92.4 Mean Corpuscular Hemoglobin 30.5 Mean Corpuscular Hemoglobin 33.1 Concent Red Cell Distribution Width 17.0 Platelet Count 476 Mean Platelet Volume 7.0 Neutrophils (%) (Auto) 77.3 Lymphocytes (%) (Auto) 13.4 Monocytes (%) (Auto) 5.2 Eosinophils (%) (Auto) 3.3 Basophils (%) (Auto) 0.8 Neutrophils # (Auto) 5.2 Lymphocytes # (Auto) 0.9 Monocytes # (Auto) 0.4 Eosinophils # (Auto) 0.2 Basophils # (Auto) 0.1 CBC Comment DIFF FINAL Differential Comment Prothrombin Time 12.4 Prothromb Time International 1.1 Ratio Activated Partial 29.0 Thromboplast Time Sodium Level 139 Potassium Level 4.1 Chloride Level 102 Carbon Dioxide Level 29.0 Anion Gap 8 Blood Urea Nitrogen 13 Creatinine 0.99 Estimat Glomerular Filtration 74 Rate Random Glucose 144 Calcium Level 8.7 Total Creatine Kinase 29 Troponin I LESS THAN 0.02 Result Diagram: 03/25/17 1030 03/25/17 1030 Imaging Last Impressions Chest X-Ray 03/25/17 1016 Signed Impressions: Service Date/Time: Saturday, March 25, 2017 11:21 - CONCLUSION: Persistent left lower lobe consolidation versus atelectasis and small left pleural effusion. Nathanael Jasso MD Assessment and Plan Problem List: (1) Atrial fibrillation with RVR Assessment and Plan: 76 y/o M with known CAD s/p recent CABG presenting with atrial fibrillation with RVR. He has been complaint with medication therapy and OAC. Recommendations: 1. Wean Cardizem drip 2. Increase Amiodarone to 400mg PO BID 3. Increase Metoprolol to 25mg PO BID 2. Cont OAC 3. Telemetry monitoring 4. Check TSH 5. Avoid electrolytes abnormalities 6. Encourage ambulation and incentive spirometry (2) CAD (coronary artery disease) (3) Chest pain (4) HLD (hyperlipidemia) (5) S/P CABG x 3 Gage Mark MD Mar 25, 2017 16:53
[2017-03-25] MEDS ORDERED: ONDANSETRON HCL 4 MG/2 ML VIAL IVP PRN (17:15)
[2017-03-25] MEDS ORDERED: ACETAMINOPHEN/HYDROcodone 325 MG/5 MG TAB PO PRN (17:15)
[2017-03-25] MEDS ORDERED: DOCUSATE SODIUM 100 MG CAP PO PRN (17:15)
[2017-03-25] MEDS: ACETAMINOPHEN 325 MG TAB PO PRN (17:28)
[2017-03-25] MEDS: METHIMAZOLE 5 MG TAB PO SCH ×2 (17:30→18:00)
[2017-03-25] MEDS ORDERED: FUROSEMIDE 20 MG/2 ML VIAL IV PUSH SCH (18:00)
--- NOTE | 2017-03-25 18:34 | EKG ---
Date Performed: 03/25/2017 Time Performed: 10:24:17 PTAGE: 76 years EKG: ATRIAL FIBRILLATION WITH RAPID VENTRICULAR RESPONSE NONSPECIFIC T-WAVE ABNORMALITY ABNORMAL RHYTHM ECG PREVIOUS TRACING : 03/11/2017 13.20 Compared to prior tracing no significant change DOCTOR: Georges Granados Interpretating Date/Time 03/25/2017 18:32:29
[2017-03-25] MEDS ORDERED: ATORVASTATIN 80 MG TAB PO SCH (21:00)
[2017-03-25] MEDS ORDERED: METOPROLOL TARTRATE 25 MG TAB PO SCH (21:00)
[2017-03-25] MEDS: APIXABAN 5 MG TABLET PO SCH (21:08)
[2017-03-25] MEDS: METOPROLOL TARTRATE 25 MG TAB PO SCH (21:08)
[2017-03-25] MEDS: SODIUM CHLORIDE 0.9% FLUSH 10 ML FLUSH IV FLUSH SCH (21:09)
[2017-03-26] VITALS (12 sets, daily range): BP systolic 112–136; BP diastolic 55–60; PULSE 52–72; RESP 18–20; TEMP 98–98.5; O2SAT 96–97
[2017-03-26] MEDS: METHIMAZOLE 5 MG TAB PO SCH ×2 (03:04→08:56)
[2017-03-26] MEDS ORDERED: PANTOPRAZOLE SOD 40 MG DELAYED RELEASE TAB PO SCH (06:00)
[2017-03-26] MEDS: ACETAMINOPHEN 325 MG TAB PO PRN (07:14)
[2017-03-26] MEDS: SODIUM CHLORIDE 0.9% FLUSH 10 ML FLUSH IV FLUSH SCH (08:58)
[2017-03-26] MEDS: METOPROLOL TARTRATE 25 MG TAB PO SCH (08:58)
[2017-03-26] MEDS: APIXABAN 5 MG TABLET PO SCH (08:58)
[2017-03-26] MEDS ORDERED: FUROSEMIDE 20 MG/2 ML VIAL IV PUSH SCH (09:00)
[2017-03-26] MEDS ORDERED: METHIMAZOLE 5 MG TAB PO SCH (09:00)
[2017-03-26 09:35] LABS: AUTOMATED NEUTROPHIL # 3.9 TH/MM3 (1.8-7.7); BASOPHIL % 0.8 % (0.0-2.0); EOSINOPHIL # 0.2 TH/MM3 (0-0.4); EOSINOPHIL % 4.4 % (0.0-4.0); HEMATOCRIT 29.9 % (39.0-51.0); HEMO FLAGS DIFF FINAL; LYMPH % 15.1 % (9.0-44.0); LYMPHOCYTE # 0.8 TH/MM3 (1.0-4.8); MEAN CELL VOLUME 94.1 FL (80.0-100.0); MEAN CORPUSCULAR HEMOGLOBIN 29.1 PG (27.0-34.0); MONO % 6.3 % (0.0-8.0); NEUT % 73.4 % (16.0-70.0); PLATELET COUNT 393 TH/MM3 (150-450); RED BLOOD COUNT 3.18 MIL/MM3 (4.50-5.90); RED CELL DISTRIBUTION WIDTH 17.6 % (11.6-17.2); WHITE BLOOD COUNT 5.4 TH/MM3 (4.0-11.0)
[2017-03-26 10:04] LABS: POTASSIUM 3.9 MEQ/L (3.5-5.1)
[2017-03-26] MEDS ORDERED: AMIO200T PO (10:55)
[2017-03-26] MEDS ORDERED: METO25TA3 PO (10:55)
[2017-03-26] MEDS ORDERED: APIX5TAB PO (10:55)
[2017-03-26] MEDS ORDERED: INDA2.5T PO (10:55)
[2017-03-26] MEDS ORDERED: METH5TAB4 PO (10:55)
--- NOTE | 2017-03-28 08:51 | HHI.DS ---
Discharge Summary Admission Date Mar 25, 2017 at 13:29 Discharge Date: March 26, 2017 Admitting Diagnosis A-fib with RVR (1) Atrial fibrillation with RVR ICD Code: I48.91 Procedures no invasive procedures. Brief History - From Admission 76-year-old male with history of atrial fibrillation, HTN, HLD, CAD s/p CABG , presents with a three-day history of palpitations and weakness. The patient was recently admitted to the hospital 03/05/ for chest pain, underwent cardiac catheterization 03/05 revealed multilevel vessel CAD was significant stenosis of the ostial RCA with in-stent restenosis and stenosis LAD diagonal bifurcation. Patient underwent CABG [address] Chua on 03/09/17. The patient has a history of paroxysmal atrial fibrillation and went into A. fib with RVR postoperatively which resolved with amiodarone loading. During that visit, the patient's Cardizem was discontinued per cardiothoracic surgery and the patient was sent home on metoprolol and amiodarone per his hogshead packer Dr. Hamilton. The patient states he was doing fine at home for over one week until this past 03/22 at midnight he again developed atrial fibrillation with RVR. States over the past three days his heart rate has been in the [id number]. He has felt palpitations and weakness but denies any significant chest pain or shortness of breath. Today his heart rate went up into the 140s at home therefore he decided to come to the ER. He presented to the ER with atrial fibrillation with RVR, heart rate 140s, given IV Cardizem 28 mg bolus which did improve his heart rate however his blood pressure also dropped to 70s/50s, now improved after IVF bolus. The patient also complains of "retaining water". He states at discharge he was at his baseline of 238 pounds however this past Tuesday 03/20 he went to doctor's appointment where he weighed 251 pounds. He also notices bilateral leg swelling. He denies any changes in his diet. He is not on any diuretics at this time. He has trouble sleeping down lying flat on his back secondary to the pain from his CABG. Otherwise, the patient denies any other medical complaints. He has appointment on 03/27 to see cardiothoracic surgeon Dr. Chua, and has an appointment 04/[address] Hamilton. CBC/BMP: 03/26/17 0839 03/26/17 0839 Significant Findings Laboratory Tests Test 03/25/17 03/26/17 10:30 08:39 Red Blood Count 3.35 MIL/MM3 3.18 MIL/MM3 (4.50-5.90) (4.50-5.90) Hemoglobin 10.2 GM/DL 9.3 GM/DL (13.0-17.0) (13.0-17.0) Hematocrit 30.9 % 29.9 % (39.0-51.0) (39.0-51.0) Platelet Count 476 TH/MM3 (150-450) Neutrophils (%) (Auto) 77.3 % 73.4 % (16.0-70.0) (16.0-70.0) Lymphocytes # (Auto) 0.9 TH/MM3 0.8 TH/MM3 (1.0-4.8) (1.0-4.8) Prothrombin Time 12.4 SEC (9.8-11.6) Estimat Glomerular Filtration 74 ML/MIN (>89) 79 ML/MIN (>89) Rate Random Glucose 144 MG/DL 115 MG/DL (74-106) (74-106) Total Creatine Kinase 29 U/L (39-308) Troponin I LESS THAN 0.02 NG/ML (0.02-0.05) B-Type Natriuretic Peptide 178 PG/ML (0-100) Thyroid Stimulating Hormone 0.059 uIU/ML 3rd Gen (0.358-3.740) Mean Corpuscular Hemoglobin 31.0 % Concent (32.0-36.0) Red Cell Distribution Width 17.6 % (11.6-17.2) Eosinophils (%) (Auto) 4.4 % (0.0-4.0) Imaging Last Impressions Chest X-Ray 03/25/17 1016 Signed Impressions: Service Date/Time: Saturday, March 25, 2017 11:21 - CONCLUSION: Persistent left lower lobe consolidation versus atelectasis and small left pleural effusion. Nathanael Jasso MD Pt update on day of discharge patient feeling well. Heart rate controlled. Denies any chest pain or shortness of breath. Denies any nausea or vomiting. Fatigue has resolved. Hospital Course patient's heart rate became controlled on diltiazem drip. Cardiology was consult. Metoprolol was increased. Amiodarone was increased. Patient is on methimazole 5 mg once daily for treatment of hyperthyroidism, however TSH still very low. Will start on methimazole 5 mg 3 times daily. He'll need to follow closely with primary care, as well as cardiology. Primary care will need to taper methimazole based on TSH. I recommend that he see an dining room attendant cafeteria.patient and convey understanding.patient did have some peripheral edema, and will be placed back on his indapamide which she was on prior to last admission for problem-based summary from admission history and physical, please see below. Atrial Fibrillation with RVR: HR 140s upon arrival, s/p IV Cardizem 28 mg bolus , HR improved however BP also dropped to 70s/50s, now improved after IVF bolus. Patient hyperthyroidism may be contributing, TSH very low, see below. -Continue on IV Cardizem drip -Continue patient's metoprolol, hold patient's amiodarone -Continue patient's anticoagulation with Eliquis -Consult patient's hogshead packer Dr. Hamilton -Monitor on telemetry in [facility] unit -after discharge, patient has an appointment 04/[address] Hamilton. Lower Extremity Edema/Weight Gain: 2+edema on exam, 13lbs weight gain. Not on diuretics at home. -Give Lasix IV 20mg bid for now. -Monitor Is&Os. -Elevate lower extremities. -Check BNP -Consider echo, will defer to cardiology CAD: s/p CABG x3 on 03/[address] Chua -continue patient's BB, Eliquis -has appointment on 03/27 to see cardiothoracic surgeon Dr. Chua -pain control with [place] prn Hyperthyroidism: acute on chronic, patient's TSH is very low 0.059, possibly contributing to above -check free T4 -increased patient's methimazole from 5mg qd to 5mg q8h -repeat TSH/T4 as outpatient in 2 weeks and f/up with PCP Dr. Partida Hyperlipidemia: chronic, stable -continue patient's statin DVT Prophylaxis: on Eliquis Pt Condition on Discharge: Good Discharge Disposition: Discharge Home Discharge Time: > 30 minutes Discharge Instructions DIET: Follow Instructions for: Heart Healthy Diet Activities you can perform: Regular-No Restrictions, See Additionl Instruction Other Activity Instructions: please follow post surgical instructions for activity Follow up Referrals: Cardiology - 1 Week with Gage Mark MD PCP Follow-up - 04/02/17 with Rajan Partida M.d. Surgical - 1 Week with Stefan Chua MD New Medications: Indapamide (Indapamide) 2.5 Mg Tab 1 TAB PO BID Heart #30 TAB Changed Medications: Amiodarone (Amiodarone) 200 Mg Tab 400 MG PO BID followup with cardiology to taper this medication heart Days 30 TAB (Changed from: 200 MG; DAILY) Methimazole (Methimazole) 5 Mg Tab 5 MG PO TID please follwup with primary care to taper this medication Thyroid # 30 Ref 0 TAB (Changed from: DAILY) Metoprolol Tartrate (Metoprolol Tartrate) 25 Mg Tab 25 MG PO BID heart #60 Ref 0 TAB (Changed from: 12.5 MG) Continued Medications: Apixaban (Eliquis) 5 Mg Tab 5 MG PO BID Prevent Stroke Days 30 TAB (This prescription has been renewed) Atorvastatin (Atorvastatin) 80 Mg Tab 80 MG PO HS cholesterol Days 30 TAB Ferrous Sulfate (Ferrous Sulfate) 325 Mg Tab 325 MG PO BID@12,17 iron deficiency Days 30 TAB Multiple Vitamin (Multi Vitamin) 1 Tab Tab 1 TAB PO DAILY TAB Pantoprazole (Pantoprazole) 40 Mg Tab 40 MG PO DAILY@06 prevent ulcer Days 30 TAB Polyethylene Glycol 3350 Powder (Polyethylene Glycol 3350 Powder) 17 Gm Pow 17 GM PO DAILY Constipation Days 30 BOTTLE Walker Zamorano MD March 28, 2017 08:51
== END 2017-03-26 12:24 | disposition home or self-care (01) | DRG 310 ==
LOC: NEPC 10:11 → NEDA 13:26 → OBSVTOIN 13:29 → HCIN 15:16
PROVIDERS: ADMIT Internal Medicine; ATTEND Internal Medicine
DX: I48.0 Paroxysmal atrial fibrillation (principal); E05.90 Thyrotoxicosis, unspecified without thyrotoxic crisis or storm; I95.2 Hypotension due to drugs; T46.1X5A Adverse effect of calcium-channel blockers, initial encounter; I10 Essential (primary) hypertension; E78.5 Hyperlipidemia, unspecified; I25.10 Atherosclerotic heart disease of native coronary artery without angina pectoris; Z95.1 Presence of aortocoronary bypass graft; Z95.5 Presence of coronary angioplasty implant and graft; Z79.01 Long term (current) use of anticoagulants; Z87.891 Personal history of nicotine dependence
CPT/HCPCS: 71010; 80048; 82550; 83880; 84439; 84443; 84484; 85025; 85610; 85730; 93005; 96361; 96374; J1940; J7030

== ENCOUNTER 2017-09-12 06:56 | Emergency (ER) | payer MEDICARE, OTHER ==
[~2017-09-12] VITALS: Ht 182.9 cm; Wt 114.0 kg
[~2017-09-12 06:56] MED LIST changes: -DOCU1CAP39 PO; +INDA2.5T PO
[2017-09-12 06:58] VITALS: BP 209/94; PULSE 108; RESP 20; TEMP 98.8; O2SAT 98
[2017-09-12 07:25] VITALS: O2SAT 98
--- NOTE | 2017-09-12 07:29 | PD ---
HPI Chief Complaint: palpitations Time Seen by Provider: 07:29 Travel History International Travel<30 days: No Contact w/Intl Traveler<30days: No Traveled to known affect area: No History of Present Illness HPI 76-year-old male came to the emergency room with his with history of palpitation that started this morning. Patient says that he has history of atrial fibrillation and had a CABG done in February of this year and during that time he also had a cardiac ablation done. Since then he has been in normal sinus rhythm but he recognized the palpitations and knew that he was back in atrial fibrillation. He was also having some associated chest discomfort that patient says he has been getting for past few days. This runs on the upper part of the chest from right shoulder to his left. He says that this is not related to any activity. Patient had seen publications manager Dr. Hamilton 2 weeks ago and at that time he was told that everything looked okay. Patient is tachycardic. welder boilermaker does show atrial fibrillation. Patient continues to take Eliquis every day. REPLACED BY [facility] Past Medical History Narrative Medical List of his past medical, surgical, social and family history is reviewed from the nursing note. Hx Anticoagulant Therapy: Yes Atrial Fibrillation: Yes Heart Rhythm Problems: Yes Cancer: Yes (SKIN) Cardiac Catheterization: Yes (STENT PLACED 10/2016) Cardiovascular Problems: Yes High Cholesterol: Yes Chest Pain: Yes Congestive Heart Failure: No Diabetes: No Diminished Hearing: No Endocrine: Yes Genitourinary: No Hypertension: Yes Musculoskeletal: No Neurologic: No Reproductive: No Respiratory: No Thyroid Disease: Yes (hyperthyroidism) Past Surgical History Abdominal Surgery: No Cardiac Surgery: No Coronary Artery Bypass Graft: No Ear Surgery: No Endocrine Surgery: No Eye Surgery: No Genitourinary Surgery: No Gynecologic Surgery: No Oral Surgery: No Thoracic Surgery: No Other Surgery: Yes (FATTY TUMOR REMOVED) Social History Alcohol Use: No Tobacco Use: No Substance Use: No Allergies-Medications (Allergen,Severity, Reaction): Coded Allergies: lisinopril (Unverified Allergy, Unknown, 09/12/17) Comments List of his allergies reviewed from the nursing note. Reported Meds & Prescriptions Reported Meds & Active Scripts Active Eliquis (Apixaban) 5 Mg Tab 5 Mg PO BID 30 Days Metoprolol Tartrate 25 Mg Tab 25 Mg PO BID Polyethylene Glycol 3350 Powder (Polyethylene Glycol) 17 Gm Pow 17 Gm PO DAILY 30 Days Atorvastatin (Atorvastatin Calcium) 80 Mg Tab 80 Mg PO HS 30 Days Pantoprazole (Pantoprazole Sodium) 40 Mg Tab 40 Mg PO DAILY@06 30 Days Reported Losartan (Losartan Potassium) 100 Mg Tab 100 Mg PO DAILY Methimazole 5 Mg Tab 5 Mg PO DAILY Narrative Medication List of his home medications reviewed from the nursing note. Review of Systems Except as stated in HPI: all other systems reviewed are Neg Cardiovascular: Positive: Chest Pain or Discomfort, Palpitations Physical Exam Narrative GENERAL: Awake, alert, mild distress SKIN: Focused skin assessment warm/dry. HEAD: Atraumatic. Normocephalic. EYES: Pupils equal and round. No scleral icterus. No injection or drainage. ENT: No nasal bleeding or discharge. Mucous membranes pink and moist. NECK: Trachea midline. No JVD. CARDIOVASCULAR: Irregularly irregular rhythm, tachycardia. No murmur appreciated. RESPIRATORY: No accessory muscle use. Clear to auscultation. Breath sounds equal bilaterally. GASTROINTESTINAL: Abdomen soft, non-tender, nondistended. Hepatic and splenic margins not palpable. MUSCULOSKELETAL: No obvious deformities. No clubbing. No cyanosis. No edema. NEUROLOGICAL: Awake and alert. No obvious cranial nerve deficits. Motor grossly within normal limits. Normal speech. PSYCHIATRIC: Appropriate mood and affect; insight and judgment normal. Data Data Last Documented VS Orders Orders Electrocardiogram (09/12/17 07:44) Basic Metabolic Panel (Bmp) (09/12/17 07:44) Ckmb (Isoenzyme) Profile (09/12/17 07:44) Complete Blood Count With Diff (09/12/17 07:44) Magnesium (Mg) (09/12/17 07:44) Prothrombin Time / Inr (Pt) (09/12/17 07:44) Act Partial Throm Time (Ptt) (09/12/17 07:44) Troponin I (09/12/17 07:44) Chest, Single Ap (09/12/17 07:44) Ecg Monitoring (09/12/17 07:44) Bilateral Bp Monitoring (09/12/17 07:44) Iv Access Insert/Monitor (09/12/17 07:44) Oximetry (09/12/17 07:44) Oxygen Administration (09/12/17 07:44) Sodium Chloride 0.9% Flush (Ns Flush) (09/12/17 07:45) Thyroid Stimulating Hormone (09/12/17 07:54) Diltiazem Inj (Cardizem Inj) (09/12/17 08:00) Diltiazem (Cardizem) (09/12/17 08:00) Urinalysis - C+S If Indicated (09/12/17 08:10) CKMB (09/12/17 07:25) CKMB% (09/12/17 07:25) Ed Discharge Order (09/12/17 10:17) Labs Laboratory Tests Test 09/12/17 07:25 09/12/17 08:40 White Blood Count 6.9 TH/MM3 Red Blood Count 4.30 MIL/MM3 Hemoglobin 14.0 GM/DL Hematocrit 41.1 % Mean Corpuscular Volume 95.5 FL Mean Corpuscular Hemoglobin 32.6 PG Mean Corpuscular Hemoglobin Concent 34.1 % Red Cell Distribution Width 15.4 % Platelet Count 160 TH/MM3 Mean Platelet Volume 9.2 FL Neutrophils (%) (Auto) 74.1 % Lymphocytes (%) (Auto) 18.1 % Monocytes (%) (Auto) 6.0 % Eosinophils (%) (Auto) 1.4 % Basophils (%) (Auto) 0.4 % Neutrophils # (Auto) 5.1 TH/MM3 Lymphocytes # (Auto) 1.2 TH/MM3 Monocytes # (Auto) 0.4 TH/MM3 Eosinophils # (Auto) 0.1 TH/MM3 Basophils # (Auto) 0.0 TH/MM3 CBC Comment DIFF FINAL Differential Comment Prothrombin Time 11.8 SEC Prothromb Time International Ratio 1.1 RATIO Activated Partial Thromboplast Time 30.3 SEC Blood Urea Nitrogen 15 MG/DL Creatinine 0.86 MG/DL Random Glucose 121 MG/DL Calcium Level 9.2 MG/DL Magnesium Level 2.0 MG/DL Sodium Level 139 MEQ/L Potassium Level 4.8 MEQ/L Chloride Level 104 MEQ/L Carbon Dioxide Level 30.6 MEQ/L Anion Gap 4 MEQ/L Estimat Glomerular Filtration Rate 87 ML/MIN Total Creatine Kinase 152 U/L Creatine Kinase MB 1.0 NG/ML Troponin I LESS THAN 0.02 NG/ML Thyroid Stimulating Hormone 3rd Gen 0.035 uIU/ML Urine Color LIGHT-YELLOW Urine Turbidity CLEAR Urine pH 7.5 Urine Specific [place] 1.005 Urine Protein NEG mg/dL Urine Glucose (UA) NEG mg/dL Urine Ketones NEG mg/dL Urine Occult Blood TRACE Urine Nitrite NEG Urine Bilirubin NEG Urine Urobilinogen LESS THAN 2.0 MG/DL Urine Leukocyte Esterase NEG Urine RBC 2 /hpf Urine WBC LESS THAN 1 /hpf Microscopic Urinalysis Comment CULT NOT INDICATED MDM Medical Decision Making Medical Screen Exam Complete: Yes Emergency Medical Condition: Yes Medical Record Reviewed: Yes Interpretation(s) Twelve-lead EKG was reviewed by me. Atrial fibrillation, RVR, left axis deviation, LVH by voltage criteria. Heart rate of 115 bpm. Differential Diagnosis Atrial fibrillation with RVR, ACS Narrative Course 10:19 AM all the blood test results are back. Patient's TSH is below the normal limit. Rest of the blood test results are within acceptable limits. Patient was given IV Cardizem bolus followed by by mouth Cardizem. His heart rate is in the 80s to 90s. I discussed the test results with him in details. Apparently patient has been going back and forth between high and low TSH. The medication methimazole has been changed multiple times by his primary care. He showed me the test result from 2 weeks ago with TSH was more than 18. I explained to him that today it is low. It seems like patient has a brittle thyroid hormone control. I have asked him to take 1 extra doses of methimazole today and tomorrow. He has a blood draw to check TSH and Sunday. He should follow-up with his primary care from then on. Also his primary care should think of referring him to an rubberizing mechanic given this poorly controlled thyroid. I've also asked him to increase his Lopressor from 25 mg twice a day to 50 mg twice a day. He needs to follow up with his publications manager as well. Patient is comfortable with those plans. I'm comfortable discharging him. Procedures EKG Prior to Arrival: No Diagnosis Primary Impression: Atrial fibrillation with RVR Referrals: Primary Care Physician Additional Instructions: Please take one extra dose of methimazole today and tomorrow. Follow-up for the blood test result for TSH on Sunday as per your appointment scheduled. Your primary care should consider referring you to an rubberizing mechanic given your brittle control of your thyroid hormone. Also take 50 mg of metoprolol twice a day for the atrial fibrillation with high heart rate. Continue checking a pulse and blood pressure 2-3 times a day. If the heart rate seems to slow down to 60 or below then go back to your original dose of metoprolol. Please follow-up with your publications manager if possible within a week. Return to the ER if the condition worsens or any other new concerns. Med/Other Pt SpecificInfo: Existing Med Changed (metoprolol 50 mg twice a day and one extra pill of methimazole today and tomorrow) Disposition: 01 DISCHARGE HOME Condition: Stable Giuliana Treadwell MD Sep 12, 2017 07:29
[2017-09-12 07:34] VITALS: BP 152/85; PULSE 92; RESP 18; TEMP 98; O2SAT 98
[2017-09-12] MEDS ORDERED: METH5TAB4 PO (07:44)
[2017-09-12] MEDS ORDERED: LOSA100T PO (07:44)
[2017-09-12] MEDS ORDERED: AMLO5TAB2 PO (07:44)
[2017-09-12] MEDS ORDERED: SODIUM CHLORIDE 0.9% FLUSH 10 ML FLUSH IVF PRN (07:45)
[2017-09-12] MEDS ORDERED: DILTIAZEM HCL 90 MG TAB PO ONE (08:00)
[2017-09-12] MEDS ORDERED: DILTIAZEM HCL 25 MG/5 ML VIAL IV ONE (08:00)
--- NOTE | 2017-09-12 08:21 | RADRPT ---
EXAM DATE/TIME: 09/12/2017 08:11 [facility] COMPARISON: CHEST SINGLE AP, March 25, 2017, 11:21. INDICATIONS : Chest pain and palpitations. MEDICAL HISTORY : CAD. Afib. Hyperlipidemia. Hypertension. Hyperthyroid. Myocardiac infarct. SURGICAL HISTORY : Cardiac catheterization. Cardiac stent. Triple bypass. Ablation. ENCOUNTER: Initial ACUITY: 1 day PAIN SCORE: 3/10 LOCATION: Bilateral chest FINDINGS: Portable AP view of the chest demonstrated normal-sized cardiac silhouette with calcification of the aorta in this patient post median sternotomy. Lungs are underinflated with mild atelectasis at the ba ses. No effusion or pneumothorax identified. The bones and soft tissues demonstrate no acute finding. CONCLUSION: Underinflated examination without an acute cardiopulmonary abnormality identified. Matteo Guerrier MD on September 12, 2017 at 8:19 Board Certified Radiologist. This report was verified electronically.
[2017-09-12 08:39] LABS: AUTOMATED NEUTROPHIL # 5.1 TH/MM3 (1.8-7.7); BASOPHIL % 0.4 % (0.0-2.0); EOSINOPHIL # 0.1 TH/MM3 (0-0.4); EOSINOPHIL % 1.4 % (0.0-4.0); HEMATOCRIT 41.1 % (39.0-51.0); HEMO FLAGS DIFF FINAL; LYMPH % 18.1 % (9.0-44.0); LYMPHOCYTE # 1.2 TH/MM3 (1.0-4.8); MEAN CELL VOLUME 95.5 FL (80.0-100.0); MEAN CORPUSCULAR HEMOGLOBIN 32.6 PG (27.0-34.0); MEAN CORPUSCULAR HGB CONC 34.1 % (32.0-36.0); NEUT % 74.1 % (16.0-70.0); PLATELET COUNT 160 TH/MM3 (150-450); RED CELL DISTRIBUTION WIDTH 15.4 % (11.6-17.2); WHITE BLOOD COUNT 6.9 TH/MM3 (4.0-11.0)
[2017-09-12 08:45] VITALS: BP 127/60; PULSE 55; RESP 18; O2SAT 99
[2017-09-12 08:46] LABS: INTERNATIONAL NORMALIZED RATIO 1.1 RATIO; PROTHROMBIN TIME - PATIENT 11.8 SEC (9.8-11.6)
[2017-09-12 08:47] LABS: APTT (PATIENT) 30.3 SEC (24.3-30.1)
[2017-09-12 09:02] LABS: ANION GAP 4 MEQ/L (5-15); BICARBONATE 30.6 MEQ/L (21.0-32.0); BLOOD UREA NITROGEN 15 MG/DL (7-18); CHLORIDE 104 MEQ/L (98-107); CREATINE KINASE 152 U/L (39-308); GLOMERULAR FILTRATION RATE 87 ML/MIN (>89); SODIUM (NA) 139 MEQ/L (136-145)
[2017-09-12 09:06] LABS: POTASSIUM 4.8 MEQ/L (3.5-5.1)
[2017-09-12 09:10] LABS: BLOOD, URINE TRACE (NEG); GLUCOSE,URINE NEG (NEG); KETONE, URINE NEG (NEG); NITRITE,URINE NEG (NEG); PH, URINE 7.5 (5.0-8.5); URINE COLOR LIGHT-YELLOW (YELLW/STRAW)
[2017-09-12 09:13] LABS: COMMENT (UR) CULT NOT INDICATED; CULTURE IF INDICATED CULT NOT INDICATED
[2017-09-12 09:35] VITALS: BP 135/60; PULSE 99
--- NOTE | 2017-09-12 13:46 | EKG ---
Date Performed: 09/12/2017 Time Performed: 07:21:06 PTAGE: 76 years EKG: ATRIAL FIBRILLATION WITH RAPID VENTRICULAR RESPONSE VOLTAGE CRITERIA FOR LVH NONSPECIFIC ST & T-WAVE ABNORMALITY ABNORMAL ECG PREVIOUS TRACING : 03/25/2017 10.24 DOCTOR: Nader Urbina Interpretating Date/Time 09/12/2017 13:42:03
== END 2017-09-12 10:45 | disposition home or self-care (01) ==
LOC: NEPE 06:56
DX: I48.91 Unspecified atrial fibrillation (principal); R07.9 Chest pain, unspecified; R94.31 Abnormal electrocardiogram [ECG] [EKG]; I10 Essential (primary) hypertension; E05.90 Thyrotoxicosis, unspecified without thyrotoxic crisis or storm; E78.00 Pure hypercholesterolemia, unspecified; Z79.01 Long term (current) use of anticoagulants; Z86.79 Personal history of other diseases of the circulatory system; Z85.828 Personal history of other malignant neoplasm of skin
CPT/HCPCS: 71010; 80048; 81001; 82550; 82552; 83735; 84443; 84484; 85025; 85610; 85730; 93005; 96374

== ENCOUNTER 2018-02-11 05:42 | Day surgery (SDC) | payer OTHER ==
[~2018-02-11] VITALS: Ht 185.4 cm; Wt 119.7 kg
[2018-02-11] VITALS (7 sets, daily range): BP systolic 131–170; BP diastolic 60–78; PULSE 60–75; RESP 16–18; TEMP 97.3–98.1; O2SAT 93–100
[~2018-02-11 05:42] MED LIST changes: -AMIO200T PO; +AMLO5TAB2 PO; -ATOR1TAB18 PO; +ATOR80TA45 PO; -FERR325T PO; -INDA2.5T PO; +LOSA100T PO; -MULT-135 PO
[2018-02-11] MEDS ORDERED: TYLE325T PO (06:04)
[2018-02-11] MEDS ORDERED: DILT30TA PO (06:04)
[2018-02-11] MEDS ORDERED: NITR1SUB3 SL (06:04)
[2018-02-11] MEDS ORDERED: MULTTAB67 PO (06:04)
[2018-02-11] MEDS ORDERED: POVIDONE IODINE 5% (ANTISEPSIS KIT) 4 APPLICATIONS EACH NARE PRN (06:15)
[2018-02-11] MEDS ORDERED: LORazepam 1 MG TAB SL SCH (06:15)
[2018-02-11] MEDS ORDERED: CHLORHEXIDINE GLUCONATE 2 % 1 PACK (2 CLOTHS) TOPICAL PRN (06:15)
[2018-02-11] MEDS ORDERED: SODIUM CHLORID 0.9% 500 ML IV PRN (06:15)
[2018-02-11] MEDS: SODIUM CHLORID 0.9% 500 ML INJ 500 ML IV SCH ×2 (06:15→22:55)
[2018-02-11] MEDS ORDERED: METOPROLOL TARTRATE 25 MG TAB PO PRN (06:15)
[2018-02-11] MEDS ORDERED: LACTATED RINGER'S 1000 ML IV PRN (06:15)
[2018-02-11 06:35] LABS: BASOPHIL % 0.7 % (0.0-2.0); EOSINOPHIL # 0.1 TH/MM3 (0-0.4); EOSINOPHIL % 1.8 % (0.0-4.0); HEMATOCRIT 43.3 % (39.0-51.0); HEMOGLOBIN 14.6 GM/DL (13.0-17.0); LYMPH % 33.6 % (9.0-44.0); LYMPHOCYTE # 1.8 TH/MM3 (1.0-4.8); MEAN CELL VOLUME 93.1 FL (80.0-100.0); MEAN CORPUSCULAR HEMOGLOBIN 31.4 PG (27.0-34.0); MEAN CORPUSCULAR HGB CONC 33.7 % (32.0-36.0); MEAN PLATELET VOLUME 8.4 FL (7.0-11.0); MONO % 9.1 % (0.0-8.0); MONOCYTE # 0.5 TH/MM3 (0-0.9); NEUT % 54.8 % (16.0-70.0); PLATELET COUNT 163 TH/MM3 (150-450); RED BLOOD COUNT 4.65 MIL/MM3 (4.50-5.90); RED CELL DISTRIBUTION WIDTH 15.2 % (11.6-17.2); WHITE BLOOD COUNT 5.4 TH/MM3 (4.0-11.0)
[2018-02-11] MEDS ORDERED: HEPARIN SODIUM - IV 10,000 UNITS/10 ML VIAL ONE ×2 (06:44→07:44)
[2018-02-11] MEDS ORDERED: LEVOFLOXACIN 500 MG PREMIX INJ 100 ML IV ONE (06:44)
[2018-02-11 06:57] LABS: INTERNATIONAL NORMALIZED RATIO 1.1 RATIO; PROTHROMBIN TIME - PATIENT 11.4 SEC (9.8-11.6)
[2018-02-11] MEDS ORDERED: HEPARIN-D5W 25,000 U/250 ML 250 ML ONE (07:43)
[2018-02-11] MEDS ORDERED: PROTAMINE SULFATE 50 MG/5 ML VIAL ONE (07:44)
[2018-02-11 07:49] LABS: BICARBONATE 29.8 MEQ/L (21.0-32.0); CALCIUM 9.1 MG/DL (8.5-10.1); CREATININE 0.91 MG/DL (0.60-1.30)
--- NOTE | 2018-02-11 10:35 | PD.CARD ---
Atrial Fibrillation Ablation PROCEDURE DATE: Feb 11, 2018 PROCEDURES PERFORMED: 1. Electrophysiology study on Isuprel infusion 2. CS cannulation 3. 3-D mapping 4. Transseptal approach 5. Right and left heart catheterization 6. Intracardiac echo 7. Radiofrequency ablation of atrial fibrillation 8. Pulmonary vein isolation 9. Posterior wall ablation 10.lateral wall ablation 11. Mitral line creation 12. Left atrial tachycardia ablation 13. Anterior wall ablation INDICATIONS FOR THE PROCEDURE Mr. Melchor is a 77-year-old male with hx of atrial fibrillation, CAD , CABG, previous maze procedure, very symptomatic referred for electrophysiology study and ablation. The risks, the nature and the benefits of the procedure were clearly stated to him. The risks include pneumothorax, cardiac perforation, stroke, need for open heart surgery and even . The patient understood and agreed to proceed. DESCRIPTION OF THE PROCEDURE IN DETAIL As written informed consent was obtained prior to esophageal echocardiogram, the patient was kept on the table where he was prepped and draped in the usual sterile fashion. Conscious sedation was initiated and maintained throughout the procedure by the anesthesiologist. Once sedation was verified, the right and left inguinal areas were anesthetized with 2% Xylocaine. Using modified Seldinger technique, the left femoral vein was cannulated on three occasions, three guidewires were advanced. Over the wire a 6, 7 and a 10-Georgian Hemaquet were advanced. Then the left femoral artery was cannulated on one occasion, one guidewire was advanced. Over the wire a 4-Georgian Hemaquet was advanced. Then the right femoral vein was cannulated on one occasion, one guidewire was advanced. Over the wire a 8-Georgian Hemaquet was advanced. Then under fluoroscopic guidance through the 6 and 7-Georgian Hemaquet, two 5-Georgian Karen curved quadripolar electrophysiology catheters were advanced and placed around the His as well as coronary sinus. Basic interval was measured. The patient was in atrial fibrillation. Through the 10-Georgian Hemaquet, a Cordis Montes AcuNav intracardiac echo catheter was advanced and placed at the right atrium. Multiple view was obtained. There was no pericardial effusion, pulmonary vein was seen, atrial septal was visualized. Then the 8-Georgian Hemaquet in the right femoral vein was exchanged for Agilis transseptal sheath that was placed all the way to the superior vena cava. Through the sheath a Dulce needle was advanced, then the sheath, the dilator and the needle were progressed until foci engaged. Once engaged, the needle was advanced. RF was delivered for 2 seconds. I was able to cross into the left atrium. Once the needle crossed, the dilator was advanced. Once the dilator crossed, the sheath was advanced. Once the sheath crossed, the dilator and the needle were removed. At this point I did flood the system and fluid movement was seen in the left atrium the indicates the sheath is in good position. The patient already received 10,000 units of heparin. The goal is to keep an ACT around 350 during ablation. Then through the sheath a [facility]. Leonardo 20 pulse circumferential catheter was advanced. Using [email or web address] endocardial solution mapping system, a two-dimensional configuration of the left atrium was obtained. Points were taken at the left superior and inferior veins, right superior and inferior veins, mitral valve, and appendages. Then through the sheath a St. Leonardo TactiCath 65cm 3.5mm irrigated tipped mapping and radiofrequency ablation catheter was advanced. Esophageal probe was placed temperature monitoring during ablation. When it increased to 0.5 degrees Celsius above baseline, I moved to a different area of the atrium. First I did isolate the left superior and inferior vein. I did make a big nooksack around the veins. Posterior was ablated. patient already in left atrial tach. A mitral line was created. Lateral wall was ablated. Patient converted into sinus rhythm. Then the right superior and inferior veins were isolated. I did remap the atrium. There was no signal into the vein, pacing from the vein showed no conduction to the atrium. Isuprel infusion was initiated at 20 mcg for over 10 minutes. No tachyarrhythmia was induced, post Isuprel no tachyarrhythmia was induced. At that point the procedure was complete. All catheters were removed , atrial septal sheath was exchanged for 9-Georgian Hemaquet, intracardiac echo showed no pericardial effusion. There is still good flow in the pulmonary vein. The patient is going to be transferred to the recovery room. No incident report. The patient tolerated the procedure. Blood loss was minimal. FINDINGS 1. Electrocardiogram: At baseline the patient was in atrial fibrillation, post procedure the patient was in sinus rhythm. 2. Basic interval: Base cycle length was around 840. Post ablation she was around 1020 milliseconds. AH at 68 and HV at 42 milliseconds. 3. Tachyarrhythmia: Atrial fibrillation was mapped and ablated. Atrial tachycardia was ablated. The ablation was successful. CONCLUSION Successful electrophysiology study, mapping, radiofrequency ablation of atrial fibrillation, left atrial tachycardia, pulmonary vein isolation, posterior ablation, mitral line creation, left atrial tachycardia. COMMENTS AND RECOMMENDATIONS The patient is going to be transferred to the telemetry unit. Will be observed and when stable can be discharged home. Sandrita Hernandes MD Feb 11, 2018 10:35
--- NOTE | 2018-02-11 10:41 | CATHPROC ---
[employer] HIS Report Study Information Study Number Admission Scheduled Start Study Start [id number] Feb 11 2018 5:42AM 02/11/2018 Feb 11 2018 7:19AM [facility] Electrophysiology Study Admit Source Facility Department Other [facility] [employer] Machine Operator Physician and Clinical Staff Initial Sandrita Castillo Healthcare Analyst Judith Santiago,COLLAR BAND CREASER Healthcare Analyst Bertha Nicole,COLLAR BAND CREASER TECH2 Other Anesthesia, DIRECTOR OF HOTEL OPERATIONS Recorder Conrado DELCID, Mike Sage,RT(R) Procedures Performed Procedure Location (Site) Vessel Name Ablation Procedure ICE CATHETER INSERT RA Atruim RF Ablation LT. ATRIUM LT. [facility] Equipment Time Rn Lactation Consultant Description Size Mfg Part Number Used/Scraped NEEDLE, TRANSSEPTAL NRG 98 [id number] 07:19 PORTOLACITIC Pharmaceutical Resale Therapy Used C1 *[id number] [employer]/ EP [id number] 07:19 KIT, TRANSDUCER / AFIB Used PACER *[id number] CATHETER, TACTICATH ABLAT BUNDLE 07:19 BUNDLE-[facility]. GAVINO Used 65 BUNDLE *[id number] BUNDLE [id number] CATHETER, FR7 OPTIMA SPIRAL 07:19 BUNDLE-[facility]. GAVINO FR7 *[id number]- Used BUNDLE BUNDLE [id number] 07:19 BUNDLE-[employer]. GAVINO CATHETER, JSN, QUAD BUNDLE FR 5 *[id number]- Used BUNDLE [id number] 07:19 BUNDLE-[employer]. GAVINO CATHETER, JSN, QUAD BUNDLE FR 5 *[id number]- Used BUNDLE [id number] SET, COOL POINT TUBING 07:19 BUNDLE-ST. GAVINO *[id number]- Used BUNDLE BUNDLE SHEATH, FR8.5 STEERABLE SM 07:19 BUNDLE-ST. GAVINO 71CM [id number] Used 71CM BUNDLE COVER, TRANSDUCER CABLE 612-113 07:19 [employer]E [employer]ENTS Used ACUNAV *[id number] 07:19 CORDIS/PACER SHEATH, FR10 GLORIA 11CM FR 10 Used *[id number] 07:19 CORDIS/PACER SHEATH, FR9 GLORIA 11CM FR 9 [id number] Used [id number] 07:19 MEDLINE INDUSTRIES PACK, CCL CUSTOM * Used *[id number] 07:19 MEDLINE PACER GOMEZ, LIMB * 2530 *[id number] Used [id number] 07:19 Heckyl MEDICAL SHEATH, FR4.5 PRELUDE 11CM FR 4.5 Used [id number] 07:19 NAMIC TUBING, HIGH PRESSURE 48" 48" Used *[id number] 07:19 NAMIC TUBING, HIGH PRESSURE 48" 48" Used *[id number] 09:00 NAMIC TUBING, HIGH PRESSURE 48" 48" Used *[id number] 07:19 POWELL MEDICAL BLANKET,WARM AIR CCL * Used *[id number] 07:19 [facility] GAVINO MEDICAL ELECTRODE KIT, TANVI X SURFACE * Used *[id number] 07:19 [facility] MEDICAL SHEATH, EPS, FR6 FAST CATH FR 6 Used *[id number] 07:19 [facility] GAVINO MEDICAL SHEATH, EPS, FR7 FAST CATH FR 7 [id number] Used [id number] 08:57 [facility] GAVINO MEDICAL SHEATH, EPS, FR8 FAST CATH FR 8 Used *[id number] 07:19 [facility] GAVINO MEDICAL SHEATH, EPS, FR8 FAST CATH FR 8 Used *[id number] CATHETER, ACUNAV FR10 ICE [id number] 07:49 VINCE FR 10 Used (VINCE) *[id number] [facility] PAD, ELECTROSURGICAL 07:19 * [id number] *[id number] Used SURGICAL GROUNDING (BLUE) History: Allergies Allergy Reaction Lisinopril History: Risk Factors Family History of Hypertension Dyslipidemia Previous NV Previous Heart Failure Premature CAD Yes Yes No No No Prior Valve Prior PCI Prior CABG Prior CABGDate Surgery No No Yes 03/12/2017 Cerebrovascular Peripheral Artery Chronic Lung On Dialysis Diabetes Disease Disease Disease No No No No No Labs Hgb (g/dl) Hct (%) WBC (l/cumm) Platelets (thousands) 11.60-17.00 35.00-51.00 4.00-11.00 150.00-450.00 14.6 43.3 5.4 163 Glucose (mg/dl) BUN (mg/dl) Creatinine (mg/dl) BUN:Creatinine (1:x) 74.00-106.00 7.00-18.00 0.50-1.30 10.00-20.00 107 24 0.9 26.7 Na (meq/l) K (meq/l) 136.00-145.00 3.50-5.10 143 3.8 INR (PTT:PT) 0.90-1.10 1 CPK-MB (ng/ML) 0.50-3.60 Not Drawn Medication Medication Total Dose (Bolus/Oral) Medication Total Dosage/Unit 1% XYLOCAINE 20 mL Medications (Bolus/Oral) Medication Time Given Dosage/Unit Administered By Reason 1% XYLOCAINE 02/11/2018 8:42:21 AM 20 mL Sandrita Hernandes 20 mL 1% XYLOCAINE given in lab by Sandrita Hernandes in Left Groin via Subcutaneous. Ordered by Curry Hernandes. Medication (Drip) Medication Time Given Dosage/Unit Concentration/Unit Diluent (ml) Solution ISUPREL 02/11/2018 9:54:16 AM 20 mcg/min 1 mg 250 NaCl .9 20 mcg/min ISUPREL given in lab by Anesthesia, DIRECTOR OF HOTEL OPERATIONS via Peripheral IV. Pump/Drip Flow = 300 ml/hr usi ng NaCl .9 with a concentration of 1 mg in 250 ml. Ordered by Sandrita Hernandes. ISUPREL 02/11/2018 10:03:56 AM 20 mcg/min 1 mg 250 NaCl .9 20 mcg/min ISUPREL given in lab by Anesthesia, DIRECTOR OF HOTEL OPERATIONS via Peripheral IV. Pump/Drip Flow = 300 ml/hr usi ng NaCl .9 with a concentration of 1 mg in 250 ml. Ordered by Sandrita Hernandes. Discontinued at 02/11/2018 10:04. LEVAQUIN 02/11/2018 8:00:32 AM 500 mL/hr 500 100 NaCl .9 500 mL/hr LEVAQUIN given in lab by Anesthesia, DIRECTOR OF HOTEL OPERATIONS via Peripheral IV. Pump/Drip Flow = 100 ml/hr usi ng NaCl .9 with a concentration of 500 in 100 ml. Ordered by Sandrita Hernandes. Chronological Log Time Study Chronological Log 7:15:40 Patient arrived via Bed. 7:19:09 Patient Name, D.O.B, / Armband Verified By R.N. 7:19:10 Consent signed by the physician and the patient and verified by the Ironworker Machine Operator staff. 7:20:58 Anesthesia at bedside. Assumes care of patient. 7:22:47 Pre-op and post- op instructions given; patient acknowledges understanding of instructions. 7:36:08 Patient has been NPO for More than 6Hrs. 7:36:11 Skin Breakdown- scabs noted on top of patients head 7:36:47 Patient Warmer Placed on the Table. 7:36:49 Disposable Defibrillator Pads Placed On Patient. 7:36:54 Dilip Prominences Protected 7:36:57 A # 20 IV was noted in the Antecubital (left). Grade = 0 7:37:12 A # 20 IV was noted in the Antecubital (right). Grade = 0 7:37:26 History and physical on the chart or being dictated. 7:37:29 Table restraints applied according to hospital policy 8:00:01 IV Antibiotic Given in the Antecubital (right). 500 mL/hr LEVAQUIN given in lab by Anesthesia, DIRECTOR OF HOTEL OPERATIONS via Peripheral IV. Pump/Drip Flow = 100 ml /hr using NaCl .9 8:00:32 with a concentration of 500 in 100 ml. Ordered by Sandrita Hernandes. 8:04:12 14 fr iqbal inserted by Bertha Camp RN without diff. Clear yellow urine noted 8:06:10 Bilateral groins prepped with 2% chlorhexidine, and draped after a 3 minute waiting time. 8:11:22 MD paged 8:35:48 MD arrived. Time Out. Correct patient, procedure, procedure equipment, site and side verified with physici an present. Time 8:39:34 concurred by MD, individual staff and DIRECTOR OF HOTEL OPERATIONS. Time Out #2 - Consents verified, patient in correct position, all results are labled and displ ayed, safety precautions 8:39:36 taken, antibiotics administered. Time out concurred by MD, individual staff and DIRECTOR OF HOTEL OPERATIONS in proced ure 8:39:41 Case Start 8:39:45 DEMETRI in progress 8:42:21 20 mL 1% XYLOCAINE given in lab by Sandrita Hernandes in Left Groin via Subcutaneous. Ordered by Sandrita Hernandes. 8:42:24 DEMETRI completed 8:43:35 Vascular access was obtained in the Fem Vein (left). 8:43:49 Vascular access was obtained in the Fem Vein (left). 8:43:57 Vascular access was obtained in the Fem Vein (left). 8:44:01 Vascular access was obtained in the Fem Art (left). 8:44:18 A SHEATH, EPS, FR6 FAST CATH FR 6 was advanced into the Fem Vein (left) using the Modified S eldinger technique. 8:44:50 A SHEATH, EPS, FR7 FAST CATH FR 7 was advanced into the Fem Vein (left) using the Modified S eldinger technique. 8:45:14 A SHEATH, FR10 GLORIA 11CM FR 10 was advanced into the Fem Vein (left) using the Modified Se julioinger technique. 8:45:35 A SHEATH, FR4.5 PRELUDE 11CM FR 4.5 was advanced into the Fem Art (left) using the Modified Seldinger technique. A CATHETER, JSN, QUAD BUNDLE FR 5 was advanced vis Fem Vein (left) and placed in the CS. Placem ent was visually 8:46:11 confirmed under fluoroscopy. A CATHETER, JSN, QUAD BUNDLE FR 5 was advanced vis Fem Vein (left) and placed in the HIS. Place ment was 8:46:56 visually confirmed under fluoroscopy. 8:47:57 Vascular access was obtained in the Fem Art (right). 8:48:02 A SHEATH, EPS, FR8 FAST CATH FR 8 was advanced into the Fem Art (right) using the Modified S eldinger technique. 8:49:09 CATHETER, ACUNAV FR10 ICE (VINCE) FR 10 Was Postioned. 8:56:15 Vascular access was obtained in the Fem Vein (right). 8:56:20 A SHEATH, EPS, FR8 FAST CATH FR 8 was advanced into the Fem Vein (right) using the Modified Seldinger technique. A SHEATH, FR8.5 STEERABLE SM 71CM BUNDLE 71CM was exchanged in the Fem Vein (right). This was n ecessary in 8:57:10 order to accomodate a larger catheter. 8:57:34 Dulce inserted in 8.5 fr agilis 9:02:16 Transeptal access, dulce removed A CATHETER, FR7 OPTIMA SPIRAL BUNDLE FR7 was advanced to the right atrium and passed through th e septal wall 9:04:54 to the left atrium. 9:05:38 LA/ Pulm vein mapping in progress 9:08:27 Activated Clotting Time Drawn 9:10:52 Catheter was removed 9:13:12 ACT (Normal Range 90-180) = 338 9:15:20 RF Ablation of the LT. [facility]TR[facility]UM Pulm Veins with a CATHETER, TACTICATH ABLAT 65 BUNDLE. 9:20:09 Ablation continues 9:21:40 Activated Clotting Time Drawn 9:27:32 ACT (Normal Range 90-180) = 344 9:33:51 Activated Clotting Time Drawn 9:35:10 Ablation continues 9:41:45 ACT (Normal Range 90-180) = 391 9:47:06 Ablation Catheter was removed A CATHETER, FR7 OPTIMA SPIRAL BUNDLE FR7 was advanced vis Fem Vein (right) and placed in the LA . Placement 9:47:40 was visually confirmed under fluoroscopy. 9:49:54 Catheter was removed 20 mcg/min ISUPREL given in lab by Anesthesia, DIRECTOR OF HOTEL OPERATIONS via Peripheral IV. Pump/Drip Flow = 300 ml/ hr using NaCl .9 9:54:16 with a concentration of 1 mg in 250 ml. Ordered by Sandrita Hernandes. 20 mcg/min ISUPREL given in lab by Anesthesia, DIRECTOR OF HOTEL OPERATIONS via Peripheral IV. Pump/Drip Flow = 300 ml/ hr using NaCl .9 10:03:56 with a concentration of 1 mg in 250 ml. Ordered by Sandrita Hernandes. Discontinued at 02/11/2018 10: 04. 10:06:47 Ablation procedure performed: AFIB. 10:06:56 EP Procedure was performed. 10:07:13 Case End 10:07:18 Sheath(s) left in place, will be removed in Holding Area A SHEATH, FR9 GLORIA 11CM FR 9 was exchanged in the Fem Vein (right). This was necessary in or hanny to minimize 10:07:59 site leakage. 10:08:42 EP Catheters were removed 10:10:27 CATHETER, ACUNAV FR10 ICE (VINCE) FR 10 Was removed 10:10:53 Case End 10:11:00 Bedside Report will be given. 10:11:08 In the Fem Art (right) the SHEATH, EPS, FR8 FAST CATH FR [address] by Pieter Pelayo, RT(R). 10:11:28 In the Fem Vein (right) the SHEATH, EPS, FR8 FAST CATH FR [address] by Mike Pelayo, RT(R). 10:11:39 In the Fem Art (left) the SHEATH, FR4.5 PRELUDE 11CM FR 4.[address] by Mike Pelayo, RT(R). 10:11:48 In the Fem Vein (left) the SHEATH, EPS, FR6 FAST CATH FR [address] by Pieter Pelayo, RT(R). 10:11:59 In the Fem Vein (left) the SHEATH, EPS, FR7 FAST CATH FR [address] by Pieter Pelayo, RT(R). 10:12:16 In the Fem Vein (left) the SHEATH, FR10 GLORIA 11CM FR [address] by Gulshan Pelayo RT(R). 10:12:49 PACU called. Spoke to Bonnie 10:13:18 No case complications noted. 10:13:20 Sterile dressing applied to sites 10:24:05 ACT (Normal Range 90-180) = 156 10:38:55 Patient moved to stretcher End Study - Contrast Media Used In Study Contrast Total Opened (mL) Total Used (mL) Total Wasted (mL) Unspecified 0 0 0 End Study - Maximum Contrast Load Max Contrast Load (mL) 664.9 End Study - Radiation Exposure Fluoro Time (minutes) 2.6 End Study - Patient Disposition Complications Transferred To Interventional Outcome No Critical Care Bed successful
[2018-02-11] MEDS ORDERED: BACITRACIN OINT 0.9 GM PKT TOP ONE (10:45)
[2018-02-11] MEDS ORDERED: METOCLOPRAMIDE HCL 10 MG/2 ML VIAL IV PUSH PRN (10:45)
[2018-02-11] MEDS ORDERED: DO NOT ADM ANY ANTICOAGULANT DRUGS PRN (10:45)
[2018-02-11] MEDS ORDERED: ONDANSETRON HCL 4 MG/2 ML VIAL IV PUSH PRN (10:45)
[2018-02-11] MEDS ORDERED: oxyCODONE/ACETAMINOPHEN 5 MG/325 MG TAB PO PRN ×2 (10:45)
[2018-02-11] MEDS ORDERED: ATROPINE SULFATE 1 MG/ML VIAL IV PUSH PRN (10:45)
[2018-02-11] MEDS ORDERED: LORazepam 2 MG/ML VIAL IV PUSH PRN (10:45)
[2018-02-11] MEDS ORDERED: SODIUM CHLOR 0.9% 250 ML INJ 250 ML IV PRN (10:45)
[2018-02-11] MEDS ORDERED: LIDOCAINE HCL 1% 30 ML VIAL INFIL PRN (11:00)
[2018-02-11] MEDS ORDERED: *morphine SULFATE 4 MG/ML PERIprocedure ONLY ONE (11:36)
--- NOTE | 2018-02-11 11:47 | EKG ---
Date Performed: 02/11/2018 Time Performed: 06:29:26 PTAGE: 77 years EKG: Atrial fibrillation Since the previous tracing, no significant change noted Abnormal ECG PREVIOUS TRACING : 09/12/17 DOCTOR: Natalie Hamilton Interpretating Date/Time 02/11/2018 11:45:19
[2018-02-11] MEDS ORDERED: ROCURONIUM INJ 50 MG/5 ML SYRINGE IV PUSH ONE (12:00)
[2018-02-11] MEDS ORDERED: GLYCOPYRROLATE 1 MG/5 ML SYRINGE IV PUSH ONE (12:00)
[2018-02-11] MEDS ORDERED: LIDOCAINE HCL 1% PF 5 ML SYRINGE OTHER ONE (12:00)
[2018-02-11] MEDS ORDERED: PROPOFOL 200 MG/20 ML AMP IV ONE (12:00)
[2018-02-11] MEDS ORDERED: DEXAMETHASONE SOD PHOS 4 MG/ML VIAL IV ONE (12:00)
[2018-02-11] MEDS ORDERED: ONDANSETRON HCL 4 MG/2 ML VIAL IV ONE (12:00)
[2018-02-11] MEDS ORDERED: LABETALOL HCL 100 MG/20 ML VIAL IV ONE (12:00)
[2018-02-11] MEDS ORDERED: ePHEDrine/NS 25 MG/5 ML SYRINGE IV ONE (12:00)
[2018-02-11] MEDS ORDERED: NEOSTIGMINE 5 MG/5 ML SYRINGE IV PUSH ONE (12:00)
[2018-02-11] MEDS: APIXABAN 5 MG TABLET PO SCH (19:02)
[2018-02-11] MEDS: ACETAMINOPHEN 325 MG TAB PO SCH ×2 (19:04→22:45)
[2018-02-11] MEDS: METOPROLOL TARTRATE 25 MG TAB PO SCH (19:04)
[2018-02-11] MEDS ORDERED: ATORVASTATIN 80 MG TAB PO SCH (21:00)
[2018-02-12] VITALS (24 sets, daily range): BP systolic 149–181; BP diastolic 65–79; PULSE 57–71; RESP 16–17; TEMP 97.4–98.5; O2SAT 95–99
[2018-02-12] MEDS: ACETAMINOPHEN 325 MG TAB PO SCH ×2 (01:58→08:35)
[2018-02-12] MEDS ORDERED: PANTOPRAZOLE SOD 40 MG DELAYED RELEASE TAB PO SCH (06:00)
[2018-02-12 07:24] LABS: INTERNATIONAL NORMALIZED RATIO 1.1 RATIO; PROTHROMBIN TIME - PATIENT 11.1 SEC (9.8-11.6)
[2018-02-12] MEDS: METOPROLOL TARTRATE 25 MG TAB PO SCH (08:33)
[2018-02-12] MEDS: APIXABAN 5 MG TABLET PO SCH (08:34)
[2018-02-12] MEDS ORDERED: MULTIVITAMIN TAB PO SCH (09:00)
[2018-02-12] MEDS ORDERED: METHIMAZOLE 5 MG TAB PO SCH (09:00)
[2018-02-12] MEDS ORDERED: amLODIPine BESYLATE 5 MG TAB PO SCH (09:00)
[2018-02-12] MEDS ORDERED: LOSARTAN 50 MG TAB PO SCH (09:00)
[2018-02-12] MEDS: SODIUM CHLORID 0.9% 500 ML INJ 500 ML IV SCH (15:35)
--- NOTE | 2018-02-12 15:53 | HHI.PR ---
Subjective Remarks Feeling better Objective Vital Signs Date Time Temp Pulse Resp B/P (MAP) Pulse Ox O2 Delivery O2 Flow Rate FiO2 02/12/18 15:00 68 17 162/77 (105) 96 02/12/18 15:00 66 02/12/18 14:00 59 02/12/18 13:01 59 02/12/18 12:08 57 02/12/18 12:00 58 02/12/18 11:10 59 02/12/18 11:10 98.5 59 17 149/65 (93) 99 02/12/18 11:00 58 02/12/18 10:33 62 02/12/18 10:00 61 02/12/18 09:15 60 02/12/18 09:00 62 02/12/18 08:15 64 02/12/18 08:00 68 02/12/18 07:38 166/72 (103) 02/12/18 07:35 98.5 67 16 181/79 (113) 96 02/12/18 07:35 67 02/12/18 07:00 71 02/12/18 06:31 68 02/12/18 05:05 62 02/12/18 04:32 62 02/12/18 04:00 97.4 70 16 154/68 (96) 95 02/12/18 03:29 64 02/12/18 02:33 66 02/12/18 01:24 65 02/12/18 00:10 66 02/11/18 23:36 63 02/11/18 23:36 97.3 64 16 131/60 (83) 93 02/11/18 22:37 61 02/11/18 21:55 61 02/11/18 20:25 64 02/11/18 19:49 75 02/11/18 19:20 97.7 60 16 145/65 (91) 95 02/11/18 18:00 98.0 64 16 150/65 (93) 97 Room Air I/O 02/11/18 02/11/18 02/11/18 02/12/18 02/12/18 02/12/18 07:00 15:00 23:00 07:00 15:00 23:00 Intake Total 480 ml Output Total 750 ml Balance -750 ml 480 ml Intake Oral 480 ml Output Urine Total 750 ml # Voids 3 Result Diagram: 02/11/18 0610 02/11/18 0610 Imaging Alert, fully oriented Lungs: ventilated Heart: S1, S2 regular, no gallop Abdomen: soft, no mass Ext: no edema Current Medications Medications (Trade) Dose Ordered Sig/Raymond Route Start Time Stop Time Status Last Admin Sodium Chloride 500 ml @ 30 mls/hr [id number] PRN IV 02/11/18 06:15 02/14/18 06:14 (Lopressor) 25 mg MULTIMEDIA AUTHORING SPECIALIST PRN PO 02/11/18 06:15 02/14/18 06:14 (Betadine 5% Antisepsis Kit) 1 applic MULTIMEDIA AUTHORING SPECIALIST PRN EACH NARE 02/11/18 06:15 02/14/18 06:14 (Chlorhexidine 2% Cloth) 3 pack MULTIMEDIA AUTHORING SPECIALIST PRN TOPICAL 02/11/18 06:15 02/14/18 06:14 Lactated Ringer's 1,000 ml @ 30 mls/hr Q24H PRN IV 02/11/18 06:15 02/14/18 06:14 Sodium Chloride 500 ml @ 30 mls/hr [id number] IV 02/11/18 06:15 02/11/18 06:15 (Ativan) 1 mg MULTIMEDIA AUTHORING SPECIALIST SL 02/11/18 06:15 02/14/18 06:14 (Percocet 5-325 Mg) 1 tab Q4H PRN PO 02/11/18 10:45 02/11/18 14:33 (Percocet 5-325 Mg) 2 tab Q4H PRN PO 02/11/18 10:45 (Atropine Inj) 0.5 mg UNSCH PRN IV PUSH 02/11/18 10:45 (Reglan Inj) 10 mg Q4H PRN IV PUSH 02/11/18 10:45 (Zofran Inj) 4 mg Q4H PRN IV PUSH 02/11/18 10:45 (Tylenol) 650 mg Q6H PO 02/11/18 10:45 02/12/18 08:35 (Norvasc) 5 mg DAILY PO 02/12/18 09:00 02/12/18 08:35 (Eliquis) 5 mg BID PO 02/11/18 21:00 02/12/18 08:34 (Lipitor) 80 mg HS PO 3/19/18 21:00 02/11/18 19:05 (Cozaar) 100 mg DAILY PO 02/12/18 09:00 02/12/18 08:36 (Tapazole) 5 mg DAILY PO 02/12/18 09:00 (Lopressor) 25 mg BID PO 02/11/18 21:00 02/12/18 08:33 (Protonix) 40 mg DAILY@06 PO 02/12/18 06:00 02/12/18 05:59 (Theragran) 1 tab DAILY PO 02/12/18 09:00 02/12/18 08:34 Assessment and Plan Problem List: (1) Atrial fibrillation ICD Codes: I48.91 - Unspecified atrial fibrillation Status: Acute Plan: SP ablation Doing better Metoprolol decreases Amio added All questions about amio answered Will be DH follow up as previously scheduled (2) HTN (hypertension) ICD Codes: I10 - Essential (primary) hypertension Status: Chronic Plan: SBP 146 Amlodipine will be increased back to 10 mg/day Sandrita Hernandes MD Feb 12, 2018 15:53
[2018-02-12] MEDS ORDERED: AMIO400T PO (15:57)
[2018-02-12] MEDS ORDERED: AMIO200T PO (15:57)
--- NOTE | 2018-02-12 16:12 | EKG ---
Date Performed: 02/11/2018 Time Performed: 11:54:11 PTAGE: 77 years EKG: Sinus rhythm WITH FIRST DEGREE AV BLOCK WITH OCCASIONAL VENTRICULAR PREMATURE COMPLEXES VOLTAGE CRITERIA FOR LVH ABNORMAL ECG PREVIOUS TRACING : 02/11/2018 06.29 Compared to previous tracing, sinus rhythm has replaced atr ial fibrillation. DOCTOR: Harvey Barba Interpretating Date/Time 02/12/2018 16:10:20
--- NOTE | 2018-02-13 21:01 | EKG ---
Date Performed: 02/12/2018 Time Performed: 06:58:36 PTAGE: 77 years EKG: Sinus rhythm Normal ECG PREVIOUS TRACING : 02/11/2018 11.54 Since the previous tracing, no significant change noted DOCTOR: Galdino Huang Interpretating Date/Time 02/13/2018 21:00:17
== END 2018-02-12 16:30 | disposition home or self-care (01) ==
LOC: HDIC 05:42 → HCAT 05:42 → HCPC 19:09 → HCAT 02-12 16:30
PROVIDERS: ATTEND Internal Medicine Interventional Cardiology
DX: I48.91 Unspecified atrial fibrillation (principal); I10 Essential (primary) hypertension; E78.5 Hyperlipidemia, unspecified; Z79.01 Long term (current) use of anticoagulants
CPT/HCPCS: 00537; 80048; 85002; 85025; 85610; 85730; 86850; 86900; 86901; 93005; 93312; 93320; 93325; 93613; 93623; 93656; 93662; C1730; C1731; C1732; C1759; C1766; C2630; J1100; J1644; J1956; J2270; J2405; J2710; J2720; J3010; J7040